=== PATIENT | male | born 1945 | race Caucasian/White ===

== ENCOUNTER → 2016-10-11 | Outpatient (CLI) | payer MEDICARE ==
--- NOTE | 2016-10-11 15:07 | US ---
EXAMINATION TYPE: US venous doppler duplex LE BI DATE OF EXAM: 10/11/2016 2:22 PM COMPARISON: NONE CLINICAL HISTORY: M79.662 Pain in Lft Limb,R22.42,M79.661 Pain Rt Limb,R22.41. SIDE PERFORMED: VESSELS IMAGED: External Iliac Vein (EIV) Common Femoral Vein Deep Femoral Vein Greater Saphenous Vein * Femoral Vein Popliteal Vein Small Saphenous Vein * Proximal Calf Veins (* superficial vessels) TECHNOLOGIST IMPRESSION: wnl Right Leg: Negative for DVT Left Leg: Negative for DVT IMPRESSION: No evidence of DVT at this time.
--- NOTE | 2016-10-11 15:12 | US ---
EXAMINATION TYPE: US abdomen comp/pelvis limited DATE OF EXAM: 10/11/2016 2:44 PM COMPARISON: NONE CLINICAL HISTORY: R10 Abdominal Pain. chest pain EXAM MEASUREMENTS: Liver Length: 17.1 cm Gallbladder Wall: 0.3 cm CBD: 0.4 cm Spleen: 10.3 cm Right Kidney: 10.8 x 5.5 x 6.1 cm Left Kidney: 11.4 x 6.1 x 6.4 cm Pancreas: not seen due to midline bowel gas Liver: wnl Gallbladder: No stones seen CBD: wnl Spleen: wnl Right Kidney: cyst measuring 2.1 x 1.6 x 2.1 cm Left Kidney: multiple cysts, largest measuring 4.2 x 4.3 x 4.1 cm Upper IVC: wnl Abd Aorta: wnl Bladder: wnl IMPRESSION: 1. Bilateral simple appearing renal cysts.
--- NOTE | 2016-10-12 10:30 | ECHOF ---
Referral Reason:R079 chest pain MEASUREMENTS -------- HEIGHT: 162.6 cm WEIGHT: 107.1 kg BP: RVIDd: 3.1 cm (< 3.3) IVSd: 1.4 cm (0.6 - 1.1) LVIDd: 4.6 cm (3.9 - 5.3) LVPWd: 1.3 cm (0.6 - 1.1) IVSs: 1.8 cm LVIDs: 3.0 cm LVPWs: 1.7 cm LA Diam: 4.5 cm (2.7 - 3.8) LAESV Index (A-L): 46.31 ml/m Ao Diam: 3.4 cm (2.0 - 3.7) AV Cusp: 1.5 cm (1.5 - 2.6) LA Diam: 4.3 cm (2.7 - 3.8) MV EXCURSION: 19.848 mm (> 18.000) MV EF SLOPE: 73 mm/s (70 - 150) EPSS: 0.4 cm MV E Inder: 0.44 m/s MV DecT: 201 ms MV A Inder: 0.72 m/s MV E/A Ratio: 0.62 RAP: 5.00 mmHg RVSP: 29.38 mmHg FINDINGS -------- Sinus rhythm. This was a technically good study. There is moderate concentric left ventricular hypertrophy. Overall left ventricular systolic function is normal with, an EF between 55 - 60 %. The right ventricle is normal in size. LA is severely dilated >40 ml/m2 The right atrial size is normal. There is mild aortic valve sclerosis. There is no evidence of aortic regurgitation. Mild mitral annular calcification present. Mild mitral regurgitation is present. No regurgitation noted There is mild pulmonary hypertension. The right ventricular systolic pressure, as measured by Doppler, is 29.38mmHg. There is no pulmonic regurgitation present. CONCLUSIONS -------- 1. There is moderate concentric left ventricular hypertrophy. 2. Overall left ventricular systolic function is normal with, an EF between 55 - 60 %. 3. LA is severely dilated >40 ml/m2 4. There is mild aortic valve sclerosis. 5. Mild mitral annular calcification present. 6. Mild mitral regurgitation is present. 7. No regurgitation noted 8. There is mild pulmonary hypertension. 9. The right ventricular systolic pressure, as measured by Doppler, is 29.38mmHg. STANDPIPE TENDER: Marianne Rea RDCS
== END | disposition home or self-care (01) ==
LOC: RADUSWWP 13:25
PROVIDERS: ATTEND Family Medicine
DX: M79.661 Pain in right lower leg (principal); M79.662 Pain in left lower leg; R22.42 Localized swelling, mass and lump, left lower limb; R22.41 Localized swelling, mass and lump, right lower limb; N28.1 Cyst of kidney, acquired
CPT/HCPCS: 76700; 76857; 93306; 93970

== ENCOUNTER → 2017-10-20 | Outpatient (CLI) | payer MEDICARE ==
[2017-10-20 14:16] LABS: Basophils % (A) 1 %; Eosinophils % (A) 1 %; HCT 44.7 % (39.0-53.0); HGB 14.3 gm/dL (13.0-17.5); Lymphocytes # (A) 1.2 k/uL (1.0-4.8); Lymphocytes % (A) 23 %; MCH 28.1 pg (25.0-35.0); MCHC 31.9 g/dL (31.0-37.0); MCV 88.1 fL (80.0-100.0); Mean Platelet Volume 7.6; Monocytes # (A) 0.4 k/uL (0-1.0); Monocytes % (A) 7 %; Neutrophils # (A) 3.6 k/uL (1.3-7.7); Neutrophils % (A) 68 %; Platelet Count 188 k/uL (150-450); RBC 5.08 m/uL (4.30-5.90); RDW 13.5 % (11.5-15.5); WBC 5.3 k/uL (3.8-10.6)
[2017-10-20 14:28] LABS: Calcium 9.8 mg/dL (8.4-10.2); Potassium 3.4 mmol/L (3.5-5.1)
== END | disposition home or self-care (01) ==
LOC: LABPAT 13:29
PROVIDERS: ATTEND Urology
DX: Z01.812 Encounter for preprocedural laboratory examination (principal); C61 Malignant neoplasm of prostate; R53.83 Other fatigue; R31.29 Other microscopic hematuria; Z79.899 Other long term (current) drug therapy
CPT/HCPCS: 36415; 80048; 85025; 87086

== ENCOUNTER 2017-10-27 05:43 | Inpatient (IN) | payer MEDICARE ==
[2017-10-24 09:28] VITALS: BMI 32.9
[~2017-10-27 05:43] MED LIST: HEPARIN SODIUM,PORCINE 5,000 UNIT/ML 1 ML VIAL SQ ONE; Pre Op ABX Message 1 EACH MISC MISCELLANE ONE
[2017-10-27] MEDS ORDERED: DEXAMETHASONE SOD PHOSPHATE 10 MG/ML 1 ML VIAL IV ONE (05:53)
[2017-10-27] MEDS ORDERED: MORPHINE SULFATE 4 MG/ML SYRINGE IV PRN (05:53)
[2017-10-27] MEDS ORDERED: MIDAZOLAM 2 MG/2 ML VIAL IV PRN (05:53)
[2017-10-27] MEDS ORDERED: ONDANSETRON 4 MG/2 ML VIAL IVP ONE (05:53)
[2017-10-27] MEDS ORDERED: LIDOCAINE 1% 20 ML VIAL (10MG/ML) FOR IV START INTRADERMA ONE (07:00)
[2017-10-27] MEDS: LACTATED RINGERS 1,000 ML IV SCH (07:00)
[2017-10-27 07:21] LABS: Albumin 4.1 g/dL (3.5-5.0); Calcium 9.6 mg/dL (8.4-10.2); Potassium 3.2 mmol/L (3.5-5.1); Total Bilirubin 0.6 mg/dL (0.2-1.3); Total Protein 6.9 g/dL (6.3-8.2)
[2017-10-27] MEDS ORDERED: LEVOFLOXACIN 500MG-D5W PMX 500 MG in DEXTROSE/WATER 1 100ML.BAG IVPB STA (07:28)
[2017-10-27] MEDS ORDERED: ePHEDrine SULFATE/0.9% NACL/PF 50 MG/5 ML SYRINGE IV ONE (07:30)
[2017-10-27] MEDS ORDERED: LIDOCAINE 1% INJ 10MG/ML (20 ML MDV) ONE (07:30)
[2017-10-27] MEDS ORDERED: MIDAZOLAM 2 MG/2 ML VIAL ONE (07:30)
[2017-10-27] MEDS ORDERED: PROPOFOL 10 MG/ML 20 ML VIAL IV ONE (07:30)
[2017-10-27] MEDS ORDERED: NEOSTIGMINE 1 MG/ML 10 ML VIAL ONE (07:30)
[2017-10-27] MEDS ORDERED: ROCURONIUM BROMIDE 10 MG/ML 10 ML VIAL IV ONE (07:30)
[2017-10-27] MEDS ORDERED: GLYCOPYRROLATE 0.2 MG/ML 2 ML VIAL ONE (07:30)
[2017-10-27] MEDS ORDERED: fentaNYL (PF) 50 MCG/ML 2 ML AMP ONE (07:30)
[2017-10-27] MEDS ORDERED: SUCCINYLCHOLINE CHLORIDE 100 MG/5 ML SYR IV ONE (07:30)
[2017-10-27] MEDS ORDERED: BUPIVACAINE (PF) 0.25% 30 ML VIAL SQ ONE (07:57)
[2017-10-27] MEDS ORDERED: LACTATED RINGERS 1,000 ML IV ONE (10:25)
[2017-10-27] MEDS ORDERED: metroNIDAZOLE-NS PMX 500 MG in SALINE 1 100ML.BAG IVPB STA (11:11)
--- NOTE | 2017-10-27 15:12 | P.PCN ---
Date of Procedure: 10/27/17 Procedure(s) Performed: An intraoperative consultation was requested by Dr. Ramirez after he identified a small defect in the anterior wall the rectum at the level of the prostate. This defect measured approximately 7-8 mm in size. There was no evidence of spillage. The patient did not have a bowel prep. Dr. Ramirez had a discussion with one of his associates and it was advised that primary closure take place robotically. This was repaired by Dr. Ramirez using a running 3-0 Vicryl suture and additional seromuscular sutures placed anteriorly as well. At that time a flexible colonoscope was placed into the anus and advanced to the proximal rectum. There was no blood within the lumen of the rectum. There was minimal liquid stool identified and aspirated. We were able to identify the approximate location of the colotomy that I could not visualize any obvious injury. The colon was insufflated with air while there was saline in the pelvis and there was no evidence of leakage of air despite seeing the rectum fill nicely. Urology proceeded with reanastomosis of the urethra at that point. We'll maintain liquid diet for the first 24-48 hours postoperatively. Low fiber diet following that. We'll follow.
[2017-10-27] MEDS ORDERED: ACETAMINOPHEN TAB 325 MG TAB PO PRN (16:48)
[2017-10-27] MEDS: metroNIDAZOLE-NS PMX 500 MG in SALINE 1 100ML.BAG IVPB SCH (18:16)
[2017-10-27] MEDS: MORPHINE SULFATE 4 MG/ML SYRINGE IVP PRN (18:24)
[2017-10-27] MEDS: METOLAZONE 5 MG TAB PO SCH (18:28)
[2017-10-27] MEDS: ATORVASTATIN 40 MG TAB PO SCH (20:49)
[2017-10-27] MEDS: HEPARIN SODIUM,PORCINE 5,000 UNIT/ML 1 ML VIAL SQ SCH (20:49)
[2017-10-27] MEDS: DORZOLAMIDE HCL 2% DROPS 10 ML BTL BOTH EYES SCH (20:49)
[2017-10-27] MEDS: METOPROLOL TARTRATE 50 MG TAB PO SCH (20:50)
[2017-10-27] MEDS: hydrALAZINE HCL 50 MG TAB PO SCH (20:50)
[2017-10-27] MEDS: LATANOPROST 0.005% OPHTH DROPS 2.5 ML BTL BOTH EYES SCH (20:50)
[2017-10-28] MEDS: MORPHINE SULFATE 4 MG/ML SYRINGE IVP PRN ×2 (01:38→05:40)
[2017-10-28] MEDS: metroNIDAZOLE-NS PMX 500 MG in SALINE 1 100ML.BAG IVPB SCH ×5 (01:39→23:58)
[2017-10-28] MEDS: DEXTROSE 5%-0.45% NACL 1,000 ML IV SCH ×4 (01:44→11:45)
[2017-10-28] MEDS: LEVOFLOXACIN 500MG-D5W PMX 500 MG in DEXTROSE/WATER 1 100ML.BAG IVPB SCH (07:20)
[2017-10-28] MEDS: HEPARIN SODIUM,PORCINE 5,000 UNIT/ML 1 ML VIAL SQ SCH ×2 (08:56→23:55)
[2017-10-28] MEDS: METOLAZONE 5 MG TAB PO SCH ×2 (08:56→17:17)
[2017-10-28] MEDS: DORZOLAMIDE HCL 2% DROPS 10 ML BTL BOTH EYES SCH ×2 (08:56→23:58)
[2017-10-28 09:17] LABS: Calcium 8.3 mg/dL (8.4-10.2); Potassium 3.2 mmol/L (3.5-5.1)
--- NOTE | 2017-10-28 09:50 | P.PN ---
Progress Note - Text Progress Note Date: 10/28/17 The patient is afebrile and relatively comfortable. He denies any shortness of breath. He does have some urinary urgency which is expected due to his urethral catheter. Urine draining from his catheter is clear. Serosanguineous fluid is draining from the Gerardo-Love drain. Potassium is 3.2. Abdomen: Incisions appear to be uninflamed. The abdomen is soft and is not distended. Impression: Good recovery so far fololowing RALP with inadvertent rectal injury which was noted and repaired intraoperatively. Recommendation: The patient's potassium will be replaced. He will continue on a liquid diet and will be started on stool softeners.
[2017-10-28] MEDS ORDERED: BISACODYL 5 MG TABLET.DR PO SCH (10:00)
[2017-10-28] MEDS: KETOROLAC 30 MG/ML 1 ML VIAL IVP PRN (11:47)
[2017-10-28] MEDS: POTASSIUM CHLORIDE ER 20 MEQ TAB.ER PO SCH ×2 (11:48→23:58)
[2017-10-28] MEDS: DOCUSATE 100 MG CAP PO SCH ×2 (11:48→23:58)
--- NOTE | 2017-10-28 12:28 | P.PN ---
Subjective Progress Note Date: 10/28/17 Patient is postop day #1 from a RALP. At this time he is doing well with minimal abdominal discomfort. He has not yet passed flatus. Objective - Vital Signs Vital signs: Vital Signs Temp 97.6 F 10/28/17 07:00 Pulse 65 10/28/17 07:00 Resp 18 10/28/17 07:00 BP 108/54 10/28/17 07:00 Pulse Ox 95 10/28/17 07:00 Intake & Output 10/27/17 10/28/17 10/28/17 18:59 06:59 18:59 Intake Total 2350 2400 Output Total 850 1000 Balance 1500 1400 Weight 107.048 kg Intake: IV 2350 Intake, IV Titration 2300 Amount Dextrose 5%-0.45% NaCl 1, 2000 000 ml @ 125 mls/hr IV . Q8H [facility] Rx#:[id number] metroNIDAZOLE-NS PMX 500 300 mg In Saline 1 100ml.bag @ 100 mls/hr IVPB Q6HR [facility] Rx#:[id number] Oral 0 100 Output: Drainage 100 Left Abdomen 100 Urine 650 900 Uretheral (Zapata) 150 900 Estimated Blood Loss 200 Other: Voiding Method Indwelling Catheter Indwelling Catheter Indwelling Catheter - Constitutional General appearance: Present: obese - Respiratory Details: Decreased breath sounds at the bases - Cardiovascular Rhythm: regular Heart sounds: normal: S1, S2 - Integumentary Integumentary Comment(s): Incisions clean and dry Abdomen soft - Psychiatric Psychiatric: Present: A&O x's 3, appropriate affect, intact judgment & insight - Labs CBC & Chem 7: 10/28/17 08:46 Labs: Abnormal Lab Results - Last 24 Hours (Table) 10/28/17 Range/Units 08:46 Potassium 3.2 L (3.5-5.1) mmol/L BUN 24 H (9-20) mg/dL Creatinine 1.60 H (0.66-1.25) mg/dL Glucose 138 H (74-99) mg/dL Calcium 8.3 L (8.4-10.2) mg/dL Assessment and Plan Assessment: Postop day #1 RALP 2. Continue present therapy
--- NOTE | 2017-10-28 13:01 | PN ---
PROGRESS NOTE DATE OF SERVICE: 10/28/2017. CHIEF COMPLAINT: Status post prostatectomy. HISTORY OF PRESENT ILLNESS: This gentleman is fairly comfortable. He has had no nausea or vomiting. He has had no chills, fever, shortness of breath. PHYSICAL EXAM: CHEST: Clear. Cardiac exam is normal. Bowel sounds are heard. IMPRESSION: 1. Status post prostatectomy. 2. Hypertension. PLAN: Possibly home today. MMODL / IJN: [id number] /
--- NOTE | 2017-10-28 13:40 | CONS ---
CONSULTATION CHIEF COMPLAINT: Carcinoma of the prostate. HISTORY OF PRESENT ILLNESS: This is the first known [facility] admission for this 71-year-old - [place] male. He has a history of hypertension and hyperlipidemia and has been found to have carcinoma of the prostate and is brought in for an elective RALP. REVIEW OF SYSTEMS: He denies any recent headaches, neurologic problems, confusion, change in his vision or his hearing, chest pain, shortness of breath, hemoptysis, chest pain, orthopnea, PND, heart disease, murmurs, rheumatic fever, abdominal pain, nausea, vomiting, hematemesis, melena, hematochezia, renal disease, renal failure, dysuria, hematuria, etc. 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 3. PENICILLIN. CURRENT MEDICATIONS: 1. Metolazone 10 mg once a day. 2. Atorvastatin 40 mg at bedtime. 3. Toprol 100 mg once a day. 4. Hydralazine 100 mg once a day. 5. Vitamin D3. 6. Aspirin 81 mg. He used to smoke but does not any longer. He does overindulge in alcohol. PHYSICAL EXAMINATION: Blood pressure is 145/90 with a pulse of 94, respirations 16. He is afebrile. In general he appeared to be slightly overweight, in no acute distress. Skin color is normal. Skin is warm and dry. Lymph nodes not enlarged. Head, ears, eyes, nose, mouth and throat were normal. Neck veins were not distended. The chest is clear. Cardiac exam is normal. The abdomen is slightly protuberant, nontender. There are no masses or visceromegaly. Extremities are normal. Neurologically he is intact. IMPRESSION: 1. Carcinoma of the prostate. 2. Hypertension. 3. Alcohol abuse. PLAN: No change in program. Proceed with surgical intervention. MMODL / IJN: [id number] /
[2017-10-28] MEDS: hydrALAZINE HCL 50 MG TAB PO SCH (23:57)
[2017-10-28] MEDS: ATORVASTATIN 40 MG TAB PO SCH (23:58)
[2017-10-28] MEDS: METOPROLOL TARTRATE 50 MG TAB PO SCH (23:58)
[2017-10-28] MEDS: LATANOPROST 0.005% OPHTH DROPS 2.5 ML BTL BOTH EYES SCH (23:59)
[2017-10-29] MEDS: KETOROLAC 30 MG/ML 1 ML VIAL IVP PRN ×2 (00:09→07:19)
[2017-10-29] MEDS: DEXTROSE 5%-0.45% NACL 1,000 ML IV SCH ×3 (00:17→21:27)
[2017-10-29] MEDS: metroNIDAZOLE-NS PMX 500 MG in SALINE 1 100ML.BAG IVPB SCH ×3 (05:06→17:57)
[2017-10-29] MEDS: ONDANSETRON 4 MG/2 ML VIAL IVP PRN ×2 (07:18→21:24)
[2017-10-29] MEDS: LACTATED RINGERS 1,000 ML IV SCH (07:52)
[2017-10-29 08:14] LABS: Potassium 3.2 mmol/L (3.5-5.1)
[2017-10-29] MEDS: DORZOLAMIDE HCL 2% DROPS 10 ML BTL BOTH EYES SCH ×2 (09:00→21:24)
[2017-10-29] MEDS: HEPARIN SODIUM,PORCINE 5,000 UNIT/ML 1 ML VIAL SQ SCH ×2 (09:06→21:24)
[2017-10-29] MEDS: POTASSIUM CHLORIDE ER 20 MEQ TAB.ER PO SCH ×2 (09:06→21:32)
[2017-10-29] MEDS: METOLAZONE 5 MG TAB PO SCH ×2 (09:06→17:57)
[2017-10-29] MEDS: LEVOFLOXACIN 500MG-D5W PMX 500 MG in DEXTROSE/WATER 1 100ML.BAG IVPB SCH (09:06)
[2017-10-29] MEDS ORDERED: HYDROcodone/APAP 5-325MG 1 EACH TAB PO PRN ×2 (10:49)
--- NOTE | 2017-10-29 11:14 | P.PN ---
Subjective Progress Note Date: 10/29/17 Principal diagnosis: POD #2, s/p RALP with closure of rectal laceration. Mr. Dominguez states that he is feeling better today. He ambulated in the morales. He is passing flatus. He is tolerating clear liquids, though he had an episode of emesis. He reports mild incisional discomfort. Objective - Vital Signs Vital signs: Vital Signs Temp 98.1 F 10/29/17 07:00 Pulse 68 10/29/17 07:00 Resp 20 10/29/17 07:00 BP 163/72 10/29/17 07:00 Pulse Ox 98 10/29/17 07:00 Intake & Output 10/28/17 10/29/17 10/29/17 17:59 06:59 18:59 Intake Total 237 Output Total Balance 237 Intake: Intake, IV Titration Amount Dextrose 5%-0.45% NaCl 1, 000 ml @ 125 mls/hr IV . Q8H [facility] Rx#:[id number] Levofloxacin 500Mg-D5w Pmx 500 mg In Dextrose/ Water 1 100ml.bag @ 100 mls/hr IVPB Q24H [facility] Rx#: [id number] metroNIDAZOLE-NS PMX 500 mg In Saline 1 100ml.bag @ 100 mls/hr IVPB Q6HR [facility] Rx#:[id number] Oral 237 Output: Drainage Left Abdomen Urine Other: Voiding Method Indwelling Catheter # Voids - Constitutional General appearance: Present: cooperative, no acute distress - Gastrointestinal Gastrointestinal Comment(s): Soft, non-distended. Incisions clean and dry. - Psychiatric Psychiatric: Present: A&O x's 3, appropriate affect - Labs CBC & Chem 7: 10/29/17 06:25 Labs: Abnormal Lab Results - Last 24 Hours (Table) 10/29/17 Range/Units 06:25 Potassium 3.2 L (3.5-5.1) mmol/L Creatinine 1.59 H (0.66-1.25) mg/dL Glucose 114 H (74-99) mg/dL Calcium 8.0 L (8.4-10.2) mg/dL Assessment and Plan (1) Adenocarcinoma of prostate Current Visit: Yes Status: Acute Code(s): C61 - MALIGNANT NEOPLASM OF PROSTATE SNOMED Code(s): 834519774 Plan: Mr. Dominguez's condition is stable. The Zapata catheter is draining well. The Gerardo-Love drainage is serosanguineous in appearance. He will continue to receive a clear liquid diet. He will undergo potassium replacement, and ambulation was encouraged.
[2017-10-29] MEDS ORDERED: POTASSIUM CHLORIDE 20 MEQ in WATER FOR INJECTION 1 100ML.BAG IVPB SCH (11:15)
--- NOTE | 2017-10-29 11:18 | P.OP ---
Date of Procedure: 10/27/17 Preoperative Diagnosis: Adenocarcinoma of the Prostate, Clinical Stage [id number] Postoperative Diagnosis: Same Procedure(s) Performed: Robotic-Assisted Laparoscopic Prostatectomy (RALP), Bilateral Pelvic Lymphadenectomy, Primary Closure of Rectal Laceration Anesthesia: SILVINO Surgeon: Nando Ramirez Estimated Blood Loss (ml): 200 IV fluids (ml): 2,000 Urine output (ml): 300 Pathology: other (prostate, seminal vesicles, pelvic lymph nodes) Condition: stable Disposition: PACU Indications for Procedure: The patient is a 71-year-old male with recently diagnosed prostate cancer. 4 of 6 left-sided biopsies showed [place] 7 adenocarcinoma. The right-sided biopsies were negative. I had a lengthy discussion with the patient and his regarding his prostate cancer. He has elected to undergo an RALP with bilateral pelvic lymphadenectomy. Operative Findings: No evidence of extraprostatic disease. Vesical neck dissection extended intraprostatic, resuling in an anterior rectal wall laceration which was identified and repaired primarily. Description of Procedure: The patient was taken in the operating room and placed in the dorsal lithotomy position, with his legs supported in Manuel stirrups. He was carefully positioned on a beanbag for stability. The abdomen and external genitalia were prepped and draped sterilely. A Zapata catheter was inserted. The Veress needle was passed through the anterior abdominal wall immediately cephalad to the umbilicus, and insufflation was performed to a pressure of 20 mm Hg. Once insufflation was performed, the Veress needle was removed and a supraumbilical incision was made, through which an 8 mm camera port was placed. Under camera guidance, 3 8 mm robotic ports were placed, 2 on the left and one on the right. An additional 12 mm port was placed on the right lateral side for use as an operator/assistant foreman port. A 5 mm port was placed to the right of the camera port for suction. The patient was placed in Trendelenburg position, and docking was then performed to the da Mau system utilizing a 4-arm approach. The abdomen was examined. The sigmoid colon was mobilized out of the pelvis. The peritoneum was incised lateral to the medial umbilical ligaments bilaterally , exposing the pubis. The peritoneum was then incised across the midline, allowing the bladder flap to be taken down. The endopelvic fascia was opened bilaterally, and muscular attachments from the urogenital diaphragm were swept away from the prostate. Bilateral pelvic lymphadenectomies were performed in the standard fashion. The peritoneal incisions were extended in a cephalad direction, and the vas deferens were divided bilaterally. Margins of dissection were the bifurcation of the iliac vessels proximally, the circumflex iliac vein distally, the external iliac artery laterally, and the obturator nerve medially. A combination of sharp and blunt dissection was used. Care was taken to avoid any neurovascular injury, and the use of monopolar electrocautery was avoided immediately adjacent to neurovascular structures. The lymphatic package was clipped distally. No enlarged lymph nodes were encountered. There were no complications. The vesical neck was incised transversely, down to the lumen. The Zapata catheter was brought out through the anterior vesical neck incision and was used for traction. The posterior aspect of the vesical neck was incised, and the dissection continued toward the anterior layer of the Denonvilliers fascia. However, the plane was difficult to deliniate and it was then determined that the dissection was intraprostatic. The vesical neck was examined. Prostatic tissue was dissected off of the vesical neck. The bladder was inspected through the vesical neck and the ureteral orifices were identified well away from the vesical neck. The correct plane of dissection was developed to separate the prostate from the vesical neck, and ultimately the anterior layer of Denonvilliers fasic was identified and incised, exposing the vas deferens. Each were isolated and divided. Next, each of the seminal vesicles were dissected away from adjacent tissues, and vascular attachments were cauterized and divided. It was at this time that a small (7-8 mm) laceration was noted on the anterior rectal wall. There was no spillage of stool whatsoever. The posterior leaf of Denonvilliers fascia was incised transversely, allowing entry into the plane between the prostate and rectum. With lateral spreading, this plane was developed down to the apex. This exposed the lateral vascular pedicles bilaterally. These were clipped and divided in an antegrade fashion, down to the apex. The use of electrocautery was avoided to prevent thermal damage to the nerves. Because of the intraprostatic dissection, the prostate was actually removed in 2 halves. Nonetheless, the vascular pedicles were well defined and there was no concern of being intraprostatic at this time. On the right side, the plane of dissection was closer to the prostate to preserve the neurovascular bundle. The remaining apical attachments were swept away from the prostate. The dorsal venous complex was incised, as well as periurethral tissue. At this point, only the urethra remained intact. This was transected immediately distal to the prostatic apex using cold scissors. A small amount of rectourethralis muscle was divided, and the specimen was placed within a specimen bag along with the pelvic lymph nodes. The dorsal venous complex was sutured using a V-Loc suture in a running fashion. The pelvis was irrigated copiously, and attention was then paid to the rectal injury. Dr. Oliveros was consulted intraoperatively. The rectal laceration was closed using 3-0 Vicryl suture in a running full-thickness fashion. The rectal wall was thin, and a second (seromuscular) layer closure was performed, again using 3-0 Vicryl suture in a running fashion, to reinforce the closure. The tissue was not very pliable, and the left vas deferens was sewn over the repair as an additional layer for reinforcement. Dr. Oliveros then performed signoidoscopy. The injury was not seen endoscopically. The rectum was filled with air, and the pelvis was filled with normal saline. No air leak was identified. The bladder neck did not easily go down to the urethra. Some of the posterior bladder attachments were taken down to mobilize the bladder. A second V-Loc suture was then used to place the Prince stitch, incorporating the rhabdosphincter and the edge of Denonvilliers fascia. This allowed the bladder to be taken down to the urethra, leaving the vesical neck immediately adjacent to the urethra. This also placed the base of the bladder over the rectal repair, which was well away from the vesicourethral anastomosis. The caliber of the vesical neck was larger than desired, and 3-0 Vicryl suture was used to close the right lateral bladder neck, leaving the vesical neck the desired caliber. The vesicourethral anastomosis was then performed using a V- Loc suture in a running fashion. A tension-free anastomosis was attained. After completing the anastomosis, an 18-Malay Zapata catheter was placed and approximately 200 mL of 0.9 normal saline were instilled into the bladder. No extravasation of irrigant from the vesicourethral anastomosis was noted. Hemostasis was noted at this time to be very good. A REAGAN drain was left in the pelvis, and it was brought out through the LLQ port. The drain was later sutured to the skin using Nylon suture and attached to bulb suction. The patient was returned to the supine position. Undocking was performed, and the specimen bag sutures were passed through the camera port. After removing all the ports and allowing all of the CO2 to be released from the peritoneal cavity, the camera port incision was enlarged to allow removal of the surgical specimen. The fascia of this incision was then closed using 0 Vicryl suture in an interrupted [id number] fashion. Each of the skin incisions were then closed using 4-0 Vicryl suture in a subcuticular fashion. Marcaine was injected at each of the incision sites. Dermabond was applied to each incision. The Zapata catheter was connected to gravity drainage. All sponge and needle counts were correct. The patient tolerated the procedure well was taken to the recovery room in stable condition.
[2017-10-29] MEDS: POTASSIUM CHLORIDE 20 MEQ in SODIUM CHLORIDE 0.9% 100 ML IVPB SCH ×2 (12:16→21:24)
[2017-10-29] MEDS: DOCUSATE 100 MG CAP PO SCH ×2 (12:31→21:32)
--- NOTE | 2017-10-29 12:54 | P.PN ---
Subjective Patient is postop day #2 from a RALP. At this time he is doing well with minimal abdominal discomfort. He has passed flatus. Objective - Vital Signs Vital signs: Vital Signs Temp 98.1 F 10/29/17 07:00 Pulse 68 10/29/17 07:00 Resp 20 10/29/17 07:00 BP 163/72 10/29/17 07:00 Pulse Ox 98 10/29/17 07:00 Intake & Output 10/28/17 10/29/17 10/29/17 17:59 06:59 18:59 Intake Total 237 Output Total Balance 237 Intake: Intake, IV Titration Amount Dextrose 5%-0.45% NaCl 1, 000 ml @ 125 mls/hr IV . Q8H [facility] Rx#:[id number] Levofloxacin 500Mg-D5w Pmx 500 mg In Dextrose/ Water 1 100ml.bag @ 100 mls/hr IVPB Q24H [facility] Rx#: [id number] metroNIDAZOLE-NS PMX 500 mg In Saline 1 100ml.bag @ 100 mls/hr IVPB Q6HR [facility] Rx#:[id number] Oral 237 Output: Drainage Left Abdomen Urine Other: Voiding Method Indwelling Catheter # Voids - Constitutional General appearance: Present: obese - Respiratory Respiratory: bilateral: CTA - Cardiovascular Rhythm: regular Heart sounds: normal: S1, S2 - Gastrointestinal Gastrointestinal Comment(s): Incisions clean and dry General gastrointestinal: Present: normal bowel sounds, soft - Psychiatric Psychiatric: Present: A&O x's 3, appropriate affect, intact judgment & insight - Labs CBC & Chem 7: 10/29/17 06:25 Labs: Abnormal Lab Results - Last 24 Hours (Table) 10/29/17 Range/Units 06:25 Potassium 3.2 L (3.5-5.1) mmol/L Creatinine 1.59 H (0.66-1.25) mg/dL Glucose 114 H (74-99) mg/dL Calcium 8.0 L (8.4-10.2) mg/dL Assessment and Plan Assessment: Impression/plan: 1. Patient status post RALP postop day #2 2. Zapata catheter draining well 3. Potassium replacement for potassium of 3.2 4. Advance diet as per urology
[2017-10-29] MEDS: LATANOPROST 0.005% OPHTH DROPS 2.5 ML BTL BOTH EYES SCH (21:24)
[2017-10-29] MEDS: hydrALAZINE HCL 50 MG TAB PO SCH (21:32)
[2017-10-29] MEDS: ATORVASTATIN 40 MG TAB PO SCH (21:32)
[2017-10-29] MEDS: METOPROLOL TARTRATE 50 MG TAB PO SCH (21:32)
[2017-10-30] MEDS: POTASSIUM CHLORIDE 20 MEQ in SODIUM CHLORIDE 0.9% 100 ML IVPB SCH (00:37)
[2017-10-30] MEDS: KETOROLAC 30 MG/ML 1 ML VIAL IVP PRN (00:37)
[2017-10-30] MEDS: metroNIDAZOLE-NS PMX 500 MG in SALINE 1 100ML.BAG IVPB SCH ×4 (06:07→22:58)
[2017-10-30] MEDS: DEXTROSE 5%-0.45% NACL 1,000 ML IV SCH ×3 (06:08→22:57)
[2017-10-30] MEDS: LACTATED RINGERS 1,000 ML IV SCH (06:09)
[2017-10-30 07:43] LABS: Calcium 7.5 mg/dL (8.4-10.2); Potassium 3.4 mmol/L (3.5-5.1)
[2017-10-30] MEDS: POTASSIUM CHLORIDE ER 20 MEQ TAB.ER PO SCH ×2 (09:09→21:22)
[2017-10-30] MEDS: LEVOFLOXACIN 500MG-D5W PMX 500 MG in DEXTROSE/WATER 1 100ML.BAG IVPB SCH (09:09)
[2017-10-30] MEDS: METOLAZONE 5 MG TAB PO SCH ×2 (09:10→21:22)
[2017-10-30] MEDS: DOCUSATE 100 MG CAP PO SCH ×2 (09:10→21:22)
[2017-10-30] MEDS: HEPARIN SODIUM,PORCINE 5,000 UNIT/ML 1 ML VIAL SQ SCH ×2 (09:10→21:21)
[2017-10-30] MEDS: DORZOLAMIDE HCL 2% DROPS 10 ML BTL BOTH EYES SCH ×2 (09:11→22:57)
--- NOTE | 2017-10-30 11:05 | P.PN ---
<Paula Curriematt Hardy - Last Filed: 10/30/17 10:55> Subjective Progress Note Date: 10/30/17 71-year-old seen and examined. Patient states pain medication effective for pain control having mild abdominal discomfort. Passing gas. No stool. REAGAN drain in the left lower quadrant serosanguineous drainage. No nausea vomiting. States has been up ambulating in the morales. Indwelling Zapata catheter in place with colored urine noted. Patient states belching Patient is postop day 3 RALP Objective - Vital Signs Vital signs: Vital Signs Temp 98.5 F 10/30/17 07:00 Pulse 62 10/30/17 07:00 Resp 16 10/30/17 07:00 BP 141/73 10/30/17 07:00 Pulse Ox 97 10/30/17 07:00 Intake & Output 10/29/17 10/30/17 10/30/17 18:59 06:59 18:59 Intake Total 1487 755 Output Total 960 Balance 1487 -205 Weight 107.048 kg Intake: IV 1000 Dextrose 5%-0.45% NaCl 1, 1000 000 ml @ 125 mls/hr IV . Q8H [facility] Rx#:[id number] Intake, IV Titration 250 515 Amount Dextrose 5%-0.45% NaCl 1, 100 250 000 ml @ 125 mls/hr IV . Q8H [facility] Rx#:[id number] Potassium Chloride 20 meq 165 In Sodium Chloride 0.9% 100 ml @ 55 mls/hr IVPB Q2H [facility] Rx#:[id number] Potassium Chloride 20 meq 50 In Water For Injection 1 100ml.bag @ 50 mls/hr IVPB Q2H [facility] Rx#: [id number] metroNIDAZOLE-NS PMX 500 100 100 mg In Saline 1 100ml.bag @ 100 mls/hr IVPB Q6HR [facility] Rx#:[id number] Oral 237 240 Output: Drainage 230 Left Abdomen 230 Urine 680 Emesis 50 Other: Voiding Method Indwelling Catheter Indwelling Catheter Indwelling Catheter # Voids 1 - Exam Physical exam Abdomen surgical dressing sites dry. Left lower quadrant REAGAN drain in place serous sinus drainage. Passing gas and belching no bowel movement indwelling Zapata catheter in place rust colored urine noted states pain medication effective for pain control surgical tenderness appropriate slightly distended with hypoactive bowel tones noted - Labs CBC & Chem 7: 10/30/17 06:23 Labs: Abnormal Lab Results - Last 24 Hours (Table) 10/30/17 Range/Units 06:23 Potassium 3.4 L (3.5-5.1) mmol/L Creatinine 1.46 H (0.66-1.25) mg/dL Glucose 110 H (74-99) mg/dL Calcium 7.5 L (8.4-10.2) mg/dL Assessment and Plan Assessment: Impression Adenocarcinoma of prostate newly diagnosed Hypokalemia Robotic-Assisted Laparoscopic Prostatectomy (RALP), Bilateral Pelvic Lymphadenectomy, Primary Closure of Rectal Laceration done on October 27 Plan Continue postop surgical care Potassium to be replaced DVT and GI prophylaxis Increase activity Pain control The above impression and plan of care have been discussed and directed by signing physician. Ana Maria Currie nurse practitioner acting as scribe for signing physician. <Joseph Oliveros - Last Filed: 10/30/17 15:38> Objective - Vital Signs Vital signs: Vital Signs Temp 98.4 F 10/30/17 14:56 Pulse 67 10/30/17 14:56 Resp 16 10/30/17 14:56 BP 141/77 10/30/17 14:56 Pulse Ox 98 10/30/17 14:56 Intake & Output 10/29/17 10/30/17 10/30/17 18:59 06:59 18:59 Intake Total 1487 755 Output Total 960 Balance 1487 -205 Weight 107.048 kg Intake: IV 1000 Dextrose 5%-0.45% NaCl 1, 1000 000 ml @ 125 mls/hr IV . Q8H [facility] Rx#:[id number] Intake, IV Titration 250 515 Amount Dextrose 5%-0.45% NaCl 1, 100 250 000 ml @ 125 mls/hr IV . Q8H [facility] Rx#:[id number] Potassium Chloride 20 meq 165 In Sodium Chloride 0.9% 100 ml @ 55 mls/hr IVPB Q2H [facility] Rx#:[id number] Potassium Chloride 20 meq 50 In Water For Injection 1 100ml.bag @ 50 mls/hr IVPB Q2H [facility] Rx#: [id number] metroNIDAZOLE-NS PMX 500 100 100 mg In Saline 1 100ml.bag @ 100 mls/hr IVPB Q6HR [facility] Rx#:[id number] Oral 237 240 Output: Drainage 230 Left Abdomen 230 Urine 680 Emesis 50 Other: Voiding Method Indwelling Catheter Indwelling Catheter Indwelling Catheter # Voids 1 - Labs CBC & Chem 7: 10/30/17 06:23 Labs: Abnormal Lab Results - Last 24 Hours (Table) 10/30/17 Range/Units 06:23 Potassium 3.4 L (3.5-5.1) mmol/L Creatinine 1.46 H (0.66-1.25) mg/dL Glucose 110 H (74-99) mg/dL Calcium 7.5 L (8.4-10.2) mg/dL Assessment and Plan Assessment: As above. Patient complaining of some abdominal bloating. He is nauseated. He did have episodes of vomiting yesterday. Only mild abdominal pain. He is passing flatus. No bowel movement. Continue clear liquid diet only. Ambulate. Add Reglan. CBC tomorrow.
[2017-10-30] MEDS: POTASSIUM CHLORIDE 10 MEQ in SODIUM CHLORIDE 0.9% 100 ML IV SCH ×4 (12:09→21:21)
--- NOTE | 2017-10-30 12:47 | CDI ---
Last Revision, July 2017 Documentation Clarification Form Date: 10/30/17 1242 From: Jackie Bahena RN, CCDS Admit Date: 10/27/2017 4:17:00 PM Patient Name: Andrea Dominguez Visit Number: [id number] ATTENTION: The Clinical Documentation Specialists (CDI) and [facility] Coding Staff appreciate your assistance in clarifying documentation. Please respond to the clarification below the line at the bottom and electronically sign. The CDI & [facility] Coding staff will review the response and follow-up if needed. Please note: Queries are made part of the Legal Health Record. If you have any questions, please contact the author of this message via ITS. Dr. Nando Ramirez Rectal Laceration is documented in the Procedure note and requires Clinical Validation. Patients Admitting Diagnosis: "Adenocarcinoma of the Prostate, Clinical Stage [id number]" Post-Operative Diagnosis: "Adenocarcinoma of the Prostate, Clinical Stage [id number]." Procedure performed: "Robotic-Assisted Laparoscopic Prostatectomy (RALP), Bilateral Pelvic Lymphadenectomy, Primary Closure of Rectal Laceration." History/Risk Factors: Prostate Ca, ETOH Abuse Clinical Indicators: 10/27 General Surgical Consult: "a small defect in the anterior wall the rectum at the level of the prostate. This defect measured approximately 7-8 mm in size. This was repaired by Dr. Ramirez using a running 3-0 Vicryl suture and additional seromuscular sutures placed anteriorly as well. There was no evidence of spillage. We were able to identify the approximate location of the colotomy that I could not visualize any obvious injury." 10/27 Urology Procedure Note: "Vesicle neck dissection extended intraprostatic, resulting in an anterior rectal wall laceration which was identified and repaired primarily." Treatment: 10/27 Urology Procedure Note: "The rectal laceration was closed using 3-0 Vicryl suture in a running full-thickness fashion. The rectal wall was thin, and a second (seromuscular) layer closure was performed, again using 3-0 Vicryl suture in a running fashion, to reinforce the closure. The tissue was not very pliable, and the left vas deferens was sewn over the repair as an additional layer for reinforcement. Consults: General Surgery In order to accurately reflect this patients severity of illness, please clarify if the rectal laceration diagnosis is: An expected post-procedural or post-surgical condition; Integral to the procedure; Inherent to the procedure; An unexpected post-procedural or post-surgical condition related to surgical care; Other, please specify Unable to determine Please continue to document in your progress notes and discharge summary in order to capture severity of illness and risk of mortality. Include clinical findings that support your diagnosis. MTDD
--- NOTE | 2017-10-30 14:41 | PN ---
PROGRESS NOTE DATE OF SERVICE: 10/29/3017 CHIEF COMPLAINT: Status post prostatectomy. HISTORY OF PRESENT ILLNESS: This gentleman had some nausea this morning. He is not running a fever and he has not had a great deal of abdominal pain. PHYSICAL EXAM: Chest is clear. The cardiac exam is normal and the abdomen is soft, nontender. IMPRESSION: 1. Status post prostatectomy. 2. Nausea and vomiting. PLAN: Continue with IV fluids and slowly progress diet and activity. MMODL / IJN: [id number] /
--- NOTE | 2017-10-30 14:48 | PN ---
PROGRESS NOTE DATE OF SERVICE: 10/30/2016 CHIEF COMPLAINT: Status post prostatectomy. HISTORY OF PRESENT ILLNESS: This gentleman is doing fairly well and he apparently threw up again this morning. He has had no significant abdominal pain or fever. Does feel better. He is passing gas now. PHYSICAL EXAM: Chest is clear. The cardiac exam is normal and the abdomen is soft and bowel sounds are present. IMPRESSION: 1. Status post prostatectomy. 2. Hypertension. PLAN: Progress activity and await recommendations of Urology. MMODL / IJN: [id number] /
[2017-10-30] MEDS: ONDANSETRON 4 MG/2 ML VIAL IVP PRN (14:49)
[2017-10-30] MEDS: METOCLOPRAMIDE 5 MG/ML 2 ML VIAL IVP SCH (18:56)
[2017-10-30] MEDS: METOPROLOL TARTRATE 50 MG TAB PO SCH (21:22)
[2017-10-30] MEDS: hydrALAZINE HCL 50 MG TAB PO SCH (21:22)
[2017-10-30] MEDS: LATANOPROST 0.005% OPHTH DROPS 2.5 ML BTL BOTH EYES SCH (21:22)
[2017-10-30] MEDS: ATORVASTATIN 40 MG TAB PO SCH (21:22)
--- NOTE | 2017-10-30 21:39 | P.PN ---
Subjective Progress Note Date: 10/30/17 Principal diagnosis: POD #3, s/p RALP with closure of rectal laceration. Mr. Dominguez states that he is feeling better today. He ambulated in the morales. He is passing flatus but has not had a BM. He is tolerating clear liquids, though he had another episode of emesis. He reports mild incisional discomfort. Objective - Vital Signs Vital signs: Vital Signs Temp 98.5 F 10/30/17 07:00 Pulse 62 10/30/17 07:00 Resp 16 10/30/17 07:00 BP 141/73 10/30/17 07:00 Pulse Ox 97 10/30/17 07:00 Intake & Output 10/29/17 10/30/17 10/30/17 18:59 06:59 18:59 Intake Total 1487 755 Output Total 960 Balance 1487 -205 Weight 107.048 kg Intake: IV 1000 Dextrose 5%-0.45% NaCl 1, 1000 000 ml @ 125 mls/hr IV . Q8H [facility] Rx#:[id number] Intake, IV Titration 250 515 Amount Dextrose 5%-0.45% NaCl 1, 100 250 000 ml @ 125 mls/hr IV . Q8H [facility] Rx#:[id number] Potassium Chloride 20 meq 165 In Sodium Chloride 0.9% 100 ml @ 55 mls/hr IVPB Q2H [facility] Rx#:[id number] Potassium Chloride 20 meq 50 In Water For Injection 1 100ml.bag @ 50 mls/hr IVPB Q2H [facility] Rx#: [id number] metroNIDAZOLE-NS PMX 500 100 100 mg In Saline 1 100ml.bag @ 100 mls/hr IVPB Q6HR [facility] Rx#:[id number] Oral 237 240 Output: Drainage 230 Left Abdomen 230 Urine 680 Emesis 50 Other: Voiding Method Indwelling Catheter Indwelling Catheter Indwelling Catheter # Voids 1 - Constitutional General appearance: Present: average body habitus, no acute distress - Cardiovascular Details: No peripheral edema. - Gastrointestinal Gastrointestinal Comment(s): Incisions clean and dry General gastrointestinal: Present: soft. Absent: distended - Psychiatric Psychiatric: Present: A&O x's 3 - Labs CBC & Chem 7: 10/30/17 06:23 Labs: Abnormal Lab Results - Last 24 Hours (Table) 10/30/17 Range/Units 06:23 Potassium 3.4 L (3.5-5.1) mmol/L Creatinine 1.46 H (0.66-1.25) mg/dL Glucose 110 H (74-99) mg/dL Calcium 7.5 L (8.4-10.2) mg/dL Assessment and Plan (1) Adenocarcinoma of prostate Current Visit: Yes Status: Acute Code(s): C61 - MALIGNANT NEOPLASM OF PROSTATE SNOMED Code(s): 456906581 Plan: Mr. Dominguez's condition is stable. The cause of his nausea is unclear. The Zapata catheter is draining well. The Gerardo-Love drainage is serosanguinous in appearance. He will be advanced to a low-fiber diet, and a Dietary consult was placed. He will undergo potassium replacement, and ambulation was again encouraged.
[2017-10-31] MEDS: DEXTROSE 5%-0.45% NACL 1,000 ML IV SCH ×3 (01:13→09:40)
[2017-10-31] MEDS: METOCLOPRAMIDE 5 MG/ML 2 ML VIAL IVP SCH ×4 (01:14→17:16)
[2017-10-31] MEDS: LACTATED RINGERS 1,000 ML IV SCH (01:29)
[2017-10-31 07:59] LABS: Basophils % (A) 0 %; Eosinophils # (A) 0.1 k/uL (0-0.7); Eosinophils % (A) 1 %; HCT 40.5 % (39.0-53.0); HGB 13.1 gm/dL (13.0-17.5); Lymphocytes # (A) 0.8 k/uL (1.0-4.8); Lymphocytes % (A) 11 %; MCH 27.9 pg (25.0-35.0); MCHC 32.4 g/dL (31.0-37.0); MCV 86.1 fL (80.0-100.0); Mean Platelet Volume 7.2; Monocytes # (A) 0.5 k/uL (0-1.0); Monocytes % (A) 7 %; Neutrophils # (A) 5.6 k/uL (1.3-7.7); Neutrophils % (A) 80 %; Platelet Count 222 k/uL (150-450); RDW 13.4 % (11.5-15.5)
[2017-10-31 08:18] LABS: Albumin 2.9 g/dL (3.5-5.0); Calcium 7.9 mg/dL (8.4-10.2); Potassium 3.3 mmol/L (3.5-5.1); Total Bilirubin 0.3 mg/dL (0.2-1.3); Total Protein 5.3 g/dL (6.3-8.2)
[2017-10-31] MEDS: LEVOFLOXACIN 500MG-D5W PMX 500 MG in DEXTROSE/WATER 1 100ML.BAG IVPB SCH (09:40)
[2017-10-31] MEDS: HEPARIN SODIUM,PORCINE 5,000 UNIT/ML 1 ML VIAL SQ SCH ×2 (09:41→21:26)
[2017-10-31] MEDS: DORZOLAMIDE HCL 2% DROPS 10 ML BTL BOTH EYES SCH ×2 (09:41→21:25)
[2017-10-31] MEDS: METOLAZONE 5 MG TAB PO SCH ×2 (09:43→15:43)
[2017-10-31] MEDS: DOCUSATE 100 MG CAP PO SCH ×2 (09:44→21:25)
[2017-10-31] MEDS ORDERED: DEXTROSE 5%-0.45% NACL 1,000 ML IV SCH (09:45)
[2017-10-31] MEDS: D5-0.45% NACL WITH KCL 20MEQ/L 1,000 ML IV SCH (10:05)
[2017-10-31] MEDS: POTASSIUM CHLORIDE ER 20 MEQ TAB.ER PO SCH (10:06)
--- NOTE | 2017-10-31 10:38 | P.PN ---
<KushAna Maria M - Last Filed: 10/31/17 10:34> Subjective Progress Note Date: 10/31/17 71-year-old male seen up ambulating in the hallway. Patient states passing gas no stool reports no nausea vomiting tolerating diet patient currently is denying abdominal discomfort REAGAN drain left lower quadrant serosanguineous drainage indwelling Zapata catheter efrem urine Robotic-Assisted Laparoscopic Prostatectomy (RALP), Bilateral Pelvic Lymphadenectomy, Primary Closure of Rectal Laceration done on October 27 Objective - Vital Signs Vital signs: Vital Signs Temp 98.3 F 10/31/17 07:36 Pulse 63 10/31/17 07:36 Resp 16 10/31/17 07:37 BP 149/75 10/31/17 07:36 Pulse Ox 94 L 10/31/17 07:36 Intake & Output 10/30/17 10/31/17 10/31/17 18:59 06:59 18:59 Intake Total 1000 2000 Output Total 580 1335 70 Balance 420 665 -70 Weight 107.048 kg Intake: IV 1000 2000 Dextrose 5%-0.45% NaCl 1, 1000 2000 000 ml @ 125 mls/hr IV . Q8H [facility] Rx#:[id number] Output: Drainage 180 160 70 Left Abdomen 180 160 70 Urine 400 1175 Uretheral (Zapata) 400 1175 Other: Voiding Method Indwelling Catheter Indwelling Catheter Indwelling Catheter - Exam Physical exam Abdomen soft surgical tenderness appropriate patient states passing gas belching no bowel movement indwelling Zapata catheter clear efrem urine. REAGAN drain left lower quadrant serosanguineous drainage. Surgical dressing dry. Patient states he has not taken anything for pain mild surgical tenderness - Labs CBC & Chem 7: 10/31/17 07:25 10/31/17 07:25 Labs: Abnormal Lab Results - Last 24 Hours (Table) 10/31/17 10/31/17 Range/Units 07:25 07:25 Lymphocytes # 0.8 L (1.0-4.8) k/uL Potassium 3.3 L (3.5-5.1) mmol/L Creatinine 1.30 H (0.66-1.25) mg/dL Glucose 136 H (74-99) mg/dL Calcium 7.9 L (8.4-10.2) mg/dL Total Protein 5.3 L (6.3-8.2) g/dL Albumin 2.9 L (3.5-5.0) g/dL Assessment and Plan Assessment: Impression Adenocarcinoma of prostate newly diagnosed Hypokalemia Robotic-Assisted Laparoscopic Prostatectomy (RALP), Bilateral Pelvic Lymphadenectomy, Primary Closure of Rectal Laceration done on October 27 Hypertension labile Plan Medicine to address antihypertensive meds Continue postop surgical care Potassium to be replaced DVT and GI prophylaxis Increase activity Pain control The above impression and plan of care have been discussed and directed by signing physician. Ana Maria Currie nurse practitioner acting as scribe for signing physician. <Joseph Oliveros - Last Filed: 10/31/17 22:29> Objective - Vital Signs Vital signs: Vital Signs Temp 98.4 F 10/31/17 21:31 Pulse 76 10/31/17 21:31 Resp 20 10/31/17 21:31 BP 158/79 10/31/17 21:31 Pulse Ox 98 10/31/17 21:31 Intake & Output 10/31/17 10/31/17 11/01/17 06:59 18:59 06:59 Intake Total 2000 100 Output Total 1335 720 70 Balance 665 -620 -70 Intake: IV 2000 100 Dextrose 5%-0.45% NaCl 1, 2000 000 ml @ 125 mls/hr IV . Q8H [facility] Rx#:[id number] Potassium Chloride 20 meq 100 In Sodium Chloride 0.9% 100 ml @ 50 mls/hr IVPB Q2HR [facility] Rx#:[id number] Output: Drainage 160 220 70 Left Abdomen 160 220 70 Urine 1175 500 Uretheral (Zapata) 1175 500 Other: Voiding Method Indwelling Catheter Indwelling Catheter - Labs CBC & Chem 7: 10/31/17 07:25 10/31/17 07:25 Labs: Abnormal Lab Results - Last 24 Hours (Table) 10/31/17 10/31/17 Range/Units 07:25 07:25 Lymphocytes # 0.8 L (1.0-4.8) k/uL Potassium 3.3 L (3.5-5.1) mmol/L Creatinine 1.30 H (0.66-1.25) mg/dL Glucose 136 H (74-99) mg/dL Calcium 7.9 L (8.4-10.2) mg/dL Total Protein 5.3 L (6.3-8.2) g/dL Albumin 2.9 L (3.5-5.0) g/dL Assessment and Plan Assessment: As above. Patient had episodes of nausea and vomiting today. He has been tolerating some of his liquids and solid foods today. He had a small bowel movement yesterday evening. Denies abdominal bloating. Abdominal examination benign. Continue diet as tolerated. We'll follow with you.
[2017-10-31] MEDS: POTASSIUM CHLORIDE 20 MEQ in SODIUM CHLORIDE 0.9% 100 ML IVPB SCH ×5 (10:56→16:31)
--- NOTE | 2017-10-31 12:06 | P.PN ---
Subjective Progress Note Date: 10/31/17 Principal diagnosis: POD #4, s/p RALP with closure of rectal laceration. Mr. Dominguez states that he had a loose bowel movement yesterday evening. He continues to experience mild nausea, as well as belching. He is ambulating. He reports mild incisional discomfort. Objective - Vital Signs Vital signs: Vital Signs Temp 98.3 F 10/31/17 07:36 Pulse 63 10/31/17 07:36 Resp 16 10/31/17 07:37 BP 149/75 10/31/17 07:36 Pulse Ox 94 L 10/31/17 07:36 Intake & Output 10/30/17 10/31/17 10/31/17 18:59 06:59 18:59 Intake Total 1000 2000 Output Total 580 1335 70 Balance 420 665 -70 Weight 107.048 kg Intake: IV 1000 2000 Dextrose 5%-0.45% NaCl 1, 1000 2000 000 ml @ 125 mls/hr IV . Q8H [facility] Rx#:[id number] Output: Drainage 180 160 70 Left Abdomen 180 160 70 Urine 400 1175 Uretheral (Zapata) 400 1175 Other: Voiding Method Indwelling Catheter Indwelling Catheter Indwelling Catheter - Constitutional General appearance: Present: cooperative, no acute distress - Gastrointestinal Gastrointestinal Comment(s): Incisions clean and dry. General gastrointestinal: Present: soft. Absent: distended, tenderness - Psychiatric Psychiatric: Present: A&O x's 3 - Labs CBC & Chem 7: 10/31/17 07:25 10/31/17 07:25 Assessment and Plan (1) Adenocarcinoma of prostate Current Visit: Yes Status: Acute Code(s): C61 - MALIGNANT NEOPLASM OF PROSTATE SNOMED Code(s): 402006313 Plan: Mr. Dominguez's condition is stable. The cause of his nausea remains unclear. Reglan was ordered, and Flagyl was discontinued. The Zapata catheter continues to drain clear yellow urine. The Gerardo-Love drainage is serosanguinous in appearance. He will continue to undergo potassium replacement. I anticipate discharge once his nausea is improved. In the meantime I ordered Ensure for nutrition.
[2017-10-31] MEDS ORDERED: HYDROmorphone 4 MG TABLET PO PRN (15:16)
--- NOTE | 2017-10-31 19:16 | PN ---
PROGRESS NOTE DATE OF SERVICE: 10/31/2017 CHIEF COMPLAINT: Carcinoma of the prostate. HISTORY OF PRESENT ILLNESS: This gentleman seems to be doing fairly well. He is not having any significant pain and he is not running a fever. He is passing gas. He has been nauseated, however, and has thrown up several times. PHYSICAL EXAMINATION: Vital signs are normal. Chest is clear. Cardiac exam is normal. The abdomen is somewhat distended, which is normal for him. Bowel sounds are heard. IMPRESSION: 1. Status post robotic-assisted laparoscopic prostatectomy. 2. Nausea and vomiting, etiology unknown -- related to medications? MMODL / IJN: [id number] /
[2017-10-31] MEDS: hydrALAZINE HCL 50 MG TAB PO SCH (21:25)
[2017-10-31] MEDS: ATORVASTATIN 40 MG TAB PO SCH (21:25)
[2017-10-31] MEDS: LATANOPROST 0.005% OPHTH DROPS 2.5 ML BTL BOTH EYES SCH (21:26)
[2017-10-31] MEDS: METOPROLOL TARTRATE 50 MG TAB PO SCH (21:26)
[2017-10-31] MEDS: ONDANSETRON 4 MG/2 ML VIAL IVP PRN (22:39)
[2017-10-31 23:14] VITALS: RESP 18
[2017-11-01] MEDS: METOCLOPRAMIDE 5 MG/ML 2 ML VIAL IVP SCH ×3 (00:56→12:23)
[2017-11-01] MEDS: D5-0.45% NACL WITH KCL 20MEQ/L 1,000 ML IV SCH (00:58)
[2017-11-01] MEDS: LACTATED RINGERS 1,000 ML IV SCH (05:31)
[2017-11-01 06:04] VITALS: BP 134/69; PULSE 61; TEMP 98.3
[2017-11-01] MEDS: LEVOFLOXACIN 500MG-D5W PMX 500 MG in DEXTROSE/WATER 1 100ML.BAG IVPB SCH (07:37)
[2017-11-01] MEDS: DORZOLAMIDE HCL 2% DROPS 10 ML BTL BOTH EYES SCH (08:48)
[2017-11-01] MEDS: HEPARIN SODIUM,PORCINE 5,000 UNIT/ML 1 ML VIAL SQ SCH (08:48)
[2017-11-01] MEDS: DOCUSATE 100 MG CAP PO SCH (08:49)
[2017-11-01] MEDS: METOLAZONE 5 MG TAB PO SCH ×2 (08:49→15:47)
[2017-11-01 10:09] LABS: Calcium 8.1 mg/dL (8.4-10.2); Potassium 3.7 mmol/L (3.5-5.1)
--- NOTE | 2017-11-01 14:49 | P.DS ---
Providers Date of admission: 10/27/17 16:17 Expected date of discharge: 11/01/17 Attending physician: Nando Ramirez Consults: Dr. Verónica Oliveros Primary care physician: Drew Ortiz - Discharge Diagnosis(es) (1) Adenocarcinoma of prostate Current Visit: Yes Status: Acute Hospital Course: On the day of admission, the patient underwent a robotic-assisted laparoscopic prostatectomy (RALP) with bilateral pelvic lymphadenectomy. It was difficult to establish the plane of dissection between the bladder neck and prostate, and during the dissection a small laceration of the anterior rectal wall was noted. This was an unexpected condition known to be a risk associated with this surgery, and Dr. Oliveros from General Surgery was consulted. A multilayer closure of the laceration was performed, and when Dr. Oliveros performed sigmoidoscopy the closure could not be identified and there was no air leak from the rectum. The perioperative course was fairly unremarkable, other than the fact that the patient experienced persistent nausea, perhaps related to a prolonged paralytic ileus. He remained afebrile throughout the hospitalization , with no evidence of leukocytosis. He was hypokalemic, requiring considerable potassium supplementation. His diet was advanced to a low fiber diet, which he tolerated in small amounts. He had at least 2 loose bowel movements prior to discharge, and was passing flatus at the time of discharge. The Zapata catheter was draining clear yellow urine at the time of discharge, and the REAGAN drain was draining serosanguineous fluid. Procedures: Robotic-assisted laparoscopic prostatectomy (RALP) with bilateral pelvic lymphadenectomy and primary closure of rectal laceration on 10/27/2017. Patient Condition at Discharge: Fair Plan - Discharge Summary Discharge Rx Participant: Yes New Discharge Prescriptions: New Hydrocodone/Acetaminophen [Tabor 5-325] 1 - 2 each PO Q4HR PRN #15 tab PRN Reason: Pain Ondansetron [Zofran] 4 mg PO Q8HR PRN #10 tab PRN Reason: Nausea And Vomiting No Action Dorzolamide 2% [Trusopt 2%] 1 drops BOTH EYES BID hydrALAZINE HCL [Apresoline] 100 mg PO HS Latanoprost Ophth [Xalatan 0.005%] 1 drops BOTH EYES HS Cholecalciferol [Vitamin D3] 5,000 unit PO HS Atorvastatin [Lipitor] 40 mg PO HS Metoprolol Tartrate [Lopressor] 100 mg PO HS Metolazone [Zaroxolyn] 10 mg PO BID Discharge Medication List Atorvastatin [Lipitor] 40 mg PO HS 10/24/17 [History] Cholecalciferol [Vitamin D3] 5,000 unit PO HS 10/24/17 [History] Dorzolamide 2% [Trusopt 2%] 1 drops BOTH EYES BID 10/24/17 [History] Latanoprost Ophth [Xalatan 0.005%] 1 drops BOTH EYES HS 10/24/17 [History] Metolazone [Zaroxolyn] 10 mg PO BID 10/24/17 [History] Metoprolol Tartrate [Lopressor] 100 mg PO HS 10/24/17 [History] hydrALAZINE HCL [Apresoline] 100 mg PO HS 10/24/17 [History] Hydrocodone/Acetaminophen [Tabor 5-325] 1 - 2 each PO Q4HR PRN #15 tab 11/01/17 [Rx] Ondansetron [Zofran] 4 mg PO Q8HR PRN #10 tab 11/01/17 [Rx] Follow up Appointment(s)/Referral(s): Joseph Oliveros MD [Medical Doctor] - 1 Week Nando Ramirez MD [STAFF PHYSICIAN] - 11/03/17 Activity/Diet/Wound Care/Special Instructions: Discharge home with Zapata catheter. No tub bath for six weeks. Shower daily. No lifting over 4 pounds for the next 6 weeks. Monitor REAGAN drain and record. May use ice packs to surgical site. Discharge Disposition: HOME SELF-CARE
--- NOTE | 2017-11-01 18:20 | PN ---
PROGRESS NOTE CHIEF COMPLAINT: Status post RALP with nausea. HISTORY OF PRESENT ILLNESS: This gentleman is still having trouble with nausea and vomiting. He is doing well otherwise. He is passing gas and stool. He is not febrile and he is not having a lot of pain. He is wondering if the nausea and vomiting could be due to his analgesics. PHYSICAL EXAMINATION: CHEST: Clear. Cardiac exam is normal. The abdomen is protuberant and soft and nontender. IMPRESSION: 1. Status post prostatectomy. 2. Nausea. PLAN: Try stopping analgesics to see if this clears up the nausea. MMODL / IJN: [id number] /
[2017-11-02] MEDS ORDERED: LEVOFLOXACIN 500 MG TAB PO SCH (09:00)
== END 2017-11-01 16:47 | disposition home or self-care (01) | DRG 908 ==
LOC: OR 05:43 → 3SUR 16:17 → OR 17:16 → 3SUR 10-30 13:22 → 4MS4W 10-31 19:20
PROVIDERS: ADMIT Urology; ATTEND Urology
PROC: 07TC4ZZ Resection of Pelvis Lymphatic, Percutaneous Endoscopic Approach (ICD-10-PCS; 2017-10-27)
PROC: 0VT04ZZ Resection of Prostate, Percutaneous Endoscopic Approach (ICD-10-PCS; 2017-10-27)
PROC: 8E0W4CZ Robotic Assisted Procedure of Trunk Region, Percutaneous Endoscopic Approach (ICD-10-PCS; 2017-10-27)
PROC: 8E0W4CZ Robotic Assisted Procedure of Trunk Region, Percutaneous Endoscopic Approach (ICD-10-PCS; 2017-10-27)
PROC: 0DJD8ZZ Inspection of Lower Intestinal Tract, Via Natural or Artificial Opening Endoscopic (ICD-10-PCS; 2017-10-27)
PROC: 0DQP4ZZ Repair Rectum, Percutaneous Endoscopic Approach (ICD-10-PCS; principal; 2017-10-27 07:30)
DX: K91.72 Accidental puncture and laceration of a digestive system organ or structure during other procedure (principal); K56.0 Paralytic ileus; C61 Malignant neoplasm of prostate; N18.3 Chronic kidney disease, stage 3 (moderate); I12.9 Hypertensive chronic kidney disease with stage 1 through stage 4 chronic kidney disease, or unspecified chronic kidney disease; N40.0 Benign prostatic hyperplasia without lower urinary tract symptoms; F10.10 Alcohol abuse, uncomplicated; E87.6 Hypokalemia; E78.5 Hyperlipidemia, unspecified; E78.00 Pure hypercholesterolemia, unspecified; K64.9 Unspecified hemorrhoids; E66.9 Obesity, unspecified; Z68.32 Body mass index [BMI] 32.0-32.9, adult; K57.90 Diverticulosis of intestine, part unspecified, without perforation or abscess without bleeding; Z79.82 Long term (current) use of aspirin; Z79.899 Other long term (current) drug therapy; Z86.010 Personal history of colon polyps; Z88.0 Allergy status to penicillin; Z88.8 Allergy status to other drugs, medicaments and biological substances; Z91.011 Allergy to milk products; Y83.6 Removal of other organ (partial) (total) as the cause of abnormal reaction of the patient, or of later complication, without mention of misadventure at the time of the procedure; Y92.234 Operating room of hospital as the place of occurrence of the external cause
CPT/HCPCS: 80048; 80053; 85025; 86850; 86900; 86901; 88305; 88307; 88309; 88331

== ENCOUNTER → 2017-11-09 | Outpatient (CLI) | payer MEDICARE ==
--- NOTE | 2017-11-09 14:01 | CT ---
EXAMINATION TYPE: CT abdomen pelvis wo con DATE OF EXAM: 11/09/2017 COMPARISON: Abdominal ultrasound dated 10/11/2016. HISTORY: Prostate cancer, possible fistula CT DLP: 2656 mGycm Automated exposure control for dose reduction was used. TECHNIQUE: Precontrast limited images through the pelvis were performed. After instillation of appro ximately 200 mL of Isovue 300/50 ml mixed into 500 ml saline helical acquisition of images was perfor med from the lung bases through the pelvis. Limited postevacuation images were obtained of the pelvis . FINDINGS: Lack of intravenous contrast limits evaluation of the solid viscera. LUNG BASES: No significant abnormality is appreciated. Calcified granulomas are seen within the media stinum. Minimal right basilar subsegmental atelectasis is noted. LIVER/GB: Unenhanced liver contains multiple hypoattenuated lesions measuring up to 7 mm within segme nt 8 of the liver that are too small to accurately characterize. PANCREAS: No significant abnormality is seen. SPLEEN: No significant abnormality is seen. ADRENALS: There is slight thickening of the left adrenal gland without nodularity suggestive of adren al gland hyperplasia. Similar thickening on the right is seen. KIDNEYS: Right midpole renal cyst is seen. Right upper pole cyst measures 2.6 cm. Probable smaller il l-defined midpole cyst is seen although incompletely evaluated without contrast. Additionally left si ded renal cysts are seen with the largest emanating from the lower pole measuring up to 4.7 cm extend ing into the renal sinus without hydronephrosis. FREE AIR: Punctate focus is seen within the umbilicus, presumed postsurgical with Gerardo Love drai n coiled within the mesentery. Trace amount of pneumoperitoneum is also seen in the fissure for the f alciform ligament and punctate foci are seen within the anterior abdomen. REPRODUCTIVE ORGANS: No significant abnormality is seen URINARY BLADDER: Zapata catheter is placed within the urinary bladder. On precontrast images no air i s seen between the urinary bladder and rectum to suggest a colorectal fistula, however density is see n intraperitoneally surrounding the posterior urinary bladder within the retrovesicular space and inf lammatory changes in the intraperitoneal region and the space of Retzius with no extent into the extr aperitoneal pelvis. Upon retrograde instillation of contrast through the Zapata catheter intraperitoneal extravasation of contrast is seen with accumulation in the retrovesicular space and contrast conforming around the con tour of the rectum. Is suspected site of injury is seen on series 4 image 27 and 26 located within th e right posterior lateral wall of the urinary bladder neck. Post void images contrast remains accumul ated within the retrovesicular space and surrounds the rectal wall, however no contrast is seen exten ding into the lumen of the rectum. ADENOPATHY: Low density areas are seen in the external iliac chains, which may relate to postsurgica l seromas or adenopathy. No additional adenopathy is seen within the pelvis. Small lymph nodes within the external iliac chain on series 3 image 10 maintain fatty leo. The previously described fluid co llections are seen on series 3 image 17 measuring 3.2 x 3.4 cm on the right and 3.7 x 2.1 cm on the l eft. OSSEOUS STRUCTURES: No significant abnormality is seen. BOWEL: No evidence of bowel dilatation. OTHER: Small periumbilical fat filled hernia is noted. IMPRESSION: 1. Intraperitoneal urinary bladder leak with extension of contrast into the retrovesicular space, maynor pected from the right inferior lateral urinary bladder neck with contrast extending posteriorly to marinelli rround the rectum although no intraluminal contrast is seen despite delayed imaging and therefore no colovesicular fistula is seen. FINDINGS WERE DISCUSSED DIRECTLY WITH DR. ROSA BY DR. HERNANDEZ AT 1342 P M ON 11/09/2017. 2. Punctate foci of scattered pneumoperitoneum, likely postsurgical with Gerardo-Love peritoneal paul inage catheter in place. 3. Fluid density rounded structures bilaterally along the external iliac chains. These could be relat ed to postoperative seroma, however short-term follow-up is recommended to ensure no adenopathy in th is patient with a history of prostate carcinoma. No additional suspicious pelvic adenopathy is identi fied. 4. Multiple hepatic lesions that are too small to accurately characterize and all subcentimeter. Thes e could be further defined with MR. Alternatively surveillance could be performed.
== END | disposition home or self-care (01) ==
LOC: RADCTMAIN 11:14
PROVIDERS: ATTEND Urology
DX: N39.498 Other specified urinary incontinence (principal); R19.09 Other intra-abdominal and pelvic swelling, mass and lump; S36.63XA Laceration of rectum, initial encounter; Z88.0 Allergy status to penicillin; Z88.8 Allergy status to other drugs, medicaments and biological substances
CPT/HCPCS: 74176; Q9967

== ENCOUNTER → 2017-11-22 | Day surgery (SDC) | payer MEDICARE ==
--- NOTE | 2017-11-22 17:29 | FL ---
EXAMINATION TYPE: FL voiding cystourethrogram DATE OF EXAM: 11/22/2017 COMPARISON: Correlation CT 11/09/2017 HISTORY: 71 year-old male history of prostate cancer, status post prostatectomy 10/23/2017, recheck for leak. Total fluoroscopy time: 1 minute 7 seconds Total images: 18 FINDINGS: Following the administration of a total of 250 ml Cystografin contrast material into the bladder via the patient's indwelling Zapata catheter, there is progressive distention noted of the bladder. There is relatively smooth bladder margins. As the bladder progressively fills, the patient urinates around the catheter. Multiple projections are obtained. On the lateral view only, a small extraperitoneal e xtension of contrast projects from the posterior bladder urethral anastomosis. No other extraperitone al or intraperitoneal contrast extravasation is identified. IMPRESSION: Tiny extension of contrast along the posterior margin of the anastomosis seen only after review of th e saved images on the lateral view. Findings suggest a tiny residual extraperitoneal leak.
== END ==
LOC: RADPROMAIN 12:54
PROVIDERS: ATTEND Urology
DX: C61 Malignant neoplasm of prostate (principal)
CPT/HCPCS: 74455; 51600; Q9962

== ENCOUNTER → 2017-12-04 | Outpatient (CLI) | payer MEDICARE ==
--- NOTE | 2017-12-04 14:43 | FL ---
EXAMINATION TYPE: FL voiding cystourethrogram DATE OF EXAM: 12/04/2017 COMPARISON: CT abdomen pelvis November 09, 2017. Fluoroscopic assisted voiding November 22, 2017. Cystoureth rogram HISTORY: Known leak from prostate surgery progress study TECHNIQUE: Fluoroscopic assisted voiding cystourethrogram. FINDINGS: Fluoroscopic guidance was provided during retrograde cystourethrogram procedure performed by myself. A total of 73 seconds of fluoroscopic time was utilized during the procedure and 11 spot images were saved to PACS. Exam is suboptimal as there is malfunction in the fluoroscopic machine and I could not take pictures initially, also I could not take more than one picture without error. Zapata catheter is in place. There appears to be persistent area of contrast extravasation along the i nferior posterior margin of bladder with wall irregularity that remains present. IMPRESSION: Suboptimal study, Persistent leak along posterior inferior margin of bladder presumed ext raperitoneal is felt present. Consider progress VCUG or repeat CT cystogram in one to 2 weeks' time t o reassess.
== END | disposition home or self-care (01) ==
LOC: RADFLMAIN 13:24
PROVIDERS: ATTEND Urology
DX: C61 Malignant neoplasm of prostate (principal)
CPT/HCPCS: 74455; Q9962

== ENCOUNTER → 2017-12-11 | Outpatient (CLI) | payer MEDICARE ==
--- NOTE | 2017-12-11 13:18 | FL ---
EXAMINATION TYPE: FL voiding cystourethrogram DATE OF EXAM: 12/11/2017 COMPARISON: Cystogram is 12/04/2017 and 11/22/[address] cystogram 11/09/2017 HISTORY: 71 year-old male history of prostate cancer, status post prostatectomy 10/23/2017, recheck for leak. Local infection of skin, subcutaneous tissues. Total fluoroscopy time: 1 minute 35 seconds Total images: 41 FINDINGS: Following the administration of a total of 275 ml Cystografin contrast material into the bladder via the patient's indwelling Zapata catheter, there is progressive distention noted of the bladder. There are relatively smooth bladder margins. As the bladder progressively fills, the patient urinates aroun d the catheter. Multiple projections are obtained. Particular attention to the right decubitus and slightly IBANEZ proje ction to assess the right posterior anastomosis which corresponds to the site of leak seen on CT of . The previous slight posterior extension of contrast at the bladder neck is no longer identified. No evidence for intraperitoneal or extraperitoneal leak. IMPRESSION: The previously described small posterior extraperitoneal leak is no longer identified. No intraperito cindy or extraperitoneal leak seen.
== END | disposition home or self-care (01) ==
LOC: RADFLMAIN 11:21 → EDSTATUS 11:30
PROVIDERS: ATTEND Urology
DX: N39.498 Other specified urinary incontinence (principal)
CPT/HCPCS: 74455; Q9962

== ENCOUNTER 2019-03-01 01:27 | Inpatient (IN) | payer MEDICARE ==
--- NOTE | 2019-03-01 01:28 | ED ---
General Adult HPI - General Stated complaint: vomiting Time Seen by Provider: 03/01/19 01:28 - History of Present Illness Initial comments: Mr Dominguez is a 73-year-old -[place] gentleman who presents the emergency department today for evaluation of multiple vague complaints. She mentions that he was seen by his primary care physician recently and was told that he had a left-sided effusion on chest x-ray. He cannot recall why he had this chest x- ray done. Patient reports that he is just not feeling well, he feels that he doesn't have an appetite at bedside reports that he is vomited and she is concerned he may be dehydrated. Patient reports that this evening he began feeling cramping in his left shoulder in the trapezius muscle. Patient denies any injury or recent strenuous activity which would've caused the pain in his left shoulder. Patient also reports feeling nauseated. Patient denies any chest pain, cough or shortness of breath. He denies any abdominal pain though he did feel nauseated have some vomiting. He had a normal bowel movement this morning. - Related Data Home Medications Medication Instructions Recorded Confirmed Atorvastatin [Lipitor] 40 mg PO HS 10/24/17 10/27/17 Cholecalciferol [Vitamin D3] 5,000 unit PO HS 10/24/17 10/27/17 Dorzolamide 2% [Trusopt 2%] 1 drops BOTH EYES BID 10/24/17 10/27/17 Latanoprost Ophth [Xalatan 0.005%] 1 drops BOTH EYES HS 10/24/17 10/27/17 Metolazone [Zaroxolyn] 10 mg PO BID 10/24/17 10/27/17 Metoprolol Tartrate [Lopressor] 100 mg PO HS 10/24/17 10/27/17 hydrALAZINE HCL [Apresoline] 100 mg PO HS 10/24/17 10/27/17 Previous Rx's Medication Instructions Recorded Hydrocodone/Acetaminophen [Doon 1 - 2 each PO Q4HR PRN #15 tab 11/01/17 5-325] Ondansetron [Zofran] 4 mg PO Q8HR PRN #10 tab 11/01/17 Allergies Allergy/AdvReac Type Severity Reaction Status Date / Time GILMAR Inhibitors Allergy Anaphylaxis Verified 10/24/17 09:18 Penicillins Allergy Anaphylaxis Verified 10/24/17 09:18 Milk Containing Products AdvReac Abdominal Verified 10/31/17 10:11 Pain Review of Systems ROS Statement: Those systems with pertinent positive or pertinent negative responses have been documented in the HPI. ROS Other: All systems not noted in ROS Statement are negative. Past Medical History Past Medical History: Cancer, Eye Disorder, Hyperlipidemia, Hypertension, Prostate Disorder Additional Past Medical History / Comment(s): GLAUCOMA BILAT EYES. HX COLON CANCER History of Any Multi-Drug Resistant Organisms: None Reported Additional Past Surgical History / Comment(s): COLONOSCOPY Past Anesthesia/Blood Transfusion Reactions: No Reported Reaction Past Psychological History: No Psychological Hx Reported Smoking Status: Former smoker Past Alcohol Use History: Occasional Additional Past Alcohol Use History / Comment(s): QUIT SMOKING 40 YEARS AGO Past Drug Use History: None Reported - Past Family History Mother Family Medical History: No Reported History General Exam - General Exam Comments Initial Comments: Physical Exam GENERAL: Patient is well-developed and well-nourished. Patient is nontoxic and well-hydrated and is in no distress. HENT: Normocephalic, Atraumatic. EYES: PERRL, EOMI Conjunctival pallor PULMONARY: Decreased breath sounds on the left CARDIOVASCULAR: There is a regular rate and rhythm without any murmurs gallops or rubs. Systolic murmur ABDOMEN: Soft and nontender with normal bowel sounds. SKIN: Skin is dry : Deferred NEUROLOGIC: Patient is alert and oriented x3. Moving all extremities spontaneously MUSCULOSKELETAL: 2+ pitting edema bilaterally PSYCHIATRIC: Normal psychiatric evaluation Course Vital Signs 03/01/19 03/01/19 03/01/19 01:31 01:33 01:40 Temperature 97.9 F Pulse Rate 80 80 Respiratory 18 20 Rate Blood Pressure 141/64 O2 Sat by Pulse 96 96 95 Oximetry 03/01/19 03/01/19 03/01/19 02:10 02:40 03:10 Temperature Pulse Rate 75 74 72 Respiratory 20 18 20 Rate Blood Pressure 111/55 130/74 121/77 O2 Sat by Pulse 95 95 95 Oximetry 03/01/19 03/01/19 03/01/19 03:30 03:40 04:10 Temperature Pulse Rate 77 78 75 Respiratory 16 12 17 Rate Blood Pressure 121/77 128/74 152/80 O2 Sat by Pulse 95 97 95 Oximetry 03/01/19 03/01/19 03/01/19 04:50 05:00 05:10 Temperature Pulse Rate 75 74 76 Respiratory 20 20 18 Rate Blood Pressure 150/82 150/82 146/87 O2 Sat by Pulse 95 96 Oximetry EKG Findings - EKG Comments: EKG Findings:: CT was obtained due to complaint of left shoulder pain. EKG was obtained at 1:37 AM, rate is 81 rhythm is sinus with frequent PACs, there is normal axis, NH 138, QRS 82, QTc 420, QTC is prolonged at 487 there are no acute ST elevations or depressions there is no evidence of acute ischemia or infarction. Medical Decision Making - Medical Decision Making Patient was seen and evaluated history is obtained from the patient as well as at bedside This 73-year-old gentleman with history of hypertension was told recently that he may have a heart murmur and effusion on chest x-ray Patient reports feeling generalized sickness, decreased appetite, nausea, muscle cramping worsen his left upper extremity aside upon arrival patient was placed on the hall monitor and was noted to have a very short run of ventricular tachycardia ranging about 6-8 beats Full cardiac workup was initiated in addition to blood cultures There is difficult vascular access, left-sided external jugular vein was accessed Labs resulted with multiple very significant abnormalities. Patient denies any history of kidney disease but is noted to have a creatinine of greater than 18, and addition patient's noted to be anemic with hemoglobin of 7.8 These results were discussed with the patient who reports he has never been told he is anemic or has kidney disease in the past Patient care was discussed with patient's primary care physician Dr. Ortiz who agrees with plan for admission to the hospital and evaluation by nephrology. - Lab Data Result diagrams: 03/01/19 02:30 03/01/19 02:30 Lab Results 03/01/19 03/01/19 03/01/19 Range/Units 02:30 02:30 02:30 WBC 14.7 H (3.8-10.6) k/uL RBC 2.76 L (4.30-5.90) m/uL Hgb 7.8 L (13.0-17.5) gm/dL Hct 23.4 L (39.0-53.0) % MCV 84.6 (80.0-100.0) fL MCH 28.1 (25.0-35.0) pg MCHC 33.3 (31.0-37.0) g/dL RDW 14.5 (11.5-15.5) % Plt Count 537 H (150-450) k/uL Neutrophils % 93 % Lymphocytes % 2 % Monocytes % 4 % Eosinophils % 0 % Basophils % 0 % Neutrophils # 13.7 H (1.3-7.7) k/uL Lymphocytes # 0.4 L (1.0-4.8) k/uL Monocytes # 0.6 (0-1.0) k/uL Eosinophils # 0.0 (0-0.7) k/uL Basophils # 0.0 (0-0.2) k/uL PT (9.0-12.0) sec INR (<1.2) APTT (22.0-30.0) sec Sodium 133 L (137-145) mmol/L Potassium 4.7 (3.5-5.1) mmol/L Chloride 95 L (98-107) mmol/L Carbon Dioxide 16 L (22-30) mmol/L Anion Gap 22 mmol/L BUN 133 H* (9-20) mg/dL Creatinine 18.48 H* (0.66-1.25) mg/dL Est GFR (CKD-EPI)AfAm 3 (>60 ml/min/1.73 sqM) Est GFR (CKD-EPI)NonAf 2 (>60 ml/min/1.73 sqM) Glucose 147 H (74-99) mg/dL Plasma Lactic Acid Barry 0.9 (0.7-2.0) mmol/L Calcium 8.3 L (8.4-10.2) mg/dL Total Bilirubin 0.6 (0.2-1.3) mg/dL AST 31 (17-59) U/L ALT 23 (21-72) U/L Alkaline Phosphatase 96 (38-126) U/L Creatine Kinase 160 (55-170) U/L Troponin I (0.000-0.034) ng/mL Total Protein 6.2 L (6.3-8.2) g/dL Albumin 3.5 (3.5-5.0) g/dL 03/01/19 03/01/19 Range/Units 02:30 02:30 WBC (3.8-10.6) k/uL RBC (4.30-5.90) m/uL Hgb (13.0-17.5) gm/dL Hct (39.0-53.0) % MCV (80.0-100.0) fL MCH (25.0-35.0) pg MCHC (31.0-37.0) g/dL RDW (11.5-15.5) % Plt Count (150-450) k/uL Neutrophils % % Lymphocytes % % Monocytes % % Eosinophils % % Basophils % % Neutrophils # (1.3-7.7) k/uL Lymphocytes # (1.0-4.8) k/uL Monocytes # (0-1.0) k/uL Eosinophils # (0-0.7) k/uL Basophils # (0-0.2) k/uL PT 10.8 (9.0-12.0) sec INR 1.0 (<1.2) APTT 29.7 (22.0-30.0) sec Sodium (137-145) mmol/L Potassium (3.5-5.1) mmol/L Chloride (98-107) mmol/L Carbon Dioxide (22-30) mmol/L Anion Gap mmol/L BUN (9-20) mg/dL Creatinine (0.66-1.25) mg/dL Est GFR (CKD-EPI)AfAm (>60 ml/min/1.73 sqM) Est GFR (CKD-EPI)NonAf (>60 ml/min/1.73 sqM) Glucose (74-99) mg/dL Plasma Lactic Acid Barry (0.7-2.0) mmol/L Calcium (8.4-10.2) mg/dL Total Bilirubin (0.2-1.3) mg/dL AST (17-59) U/L ALT (21-72) U/L Alkaline Phosphatase (38-126) U/L Creatine Kinase (55-170) U/L Troponin I 0.016 (0.000-0.034) ng/mL Total Protein (6.3-8.2) g/dL Albumin (3.5-5.0) g/dL Disposition Clinical Impression: ARF (acute renal failure) Disposition: ADMITTED IP TO THIS [facility] Condition: Serious Is patient prescribed a controlled substance at d/c from ED?: No
[2019-03-01 02:45] LABS: Basophils % (A) 0 %; Eosinophils % (A) 0 %; HCT 23.4 % (39.0-53.0); HGB 7.8 gm/dL (13.0-17.5); Lymphocytes # (A) 0.4 k/uL (1.0-4.8); Lymphocytes % (A) 2 %; MCH 28.1 pg (25.0-35.0); MCHC 33.3 g/dL (31.0-37.0); MCV 84.6 fL (80.0-100.0); Monocytes # (A) 0.6 k/uL (0-1.0); Monocytes % (A) 4 %; Neutrophils # (A) 13.7 k/uL (1.3-7.7); Neutrophils % (A) 93 %; Platelet Count 537 k/uL (150-450); RBC 2.76 m/uL (4.30-5.90); RDW 14.5 % (11.5-15.5); WBC 14.7 k/uL (3.8-10.6)
[2019-03-01 02:53] LABS: Albumin 3.5 g/dL (3.5-5.0); Calcium 8.3 mg/dL (8.4-10.2); Potassium 4.7 mmol/L (3.5-5.1); Total Bilirubin 0.6 mg/dL (0.2-1.3); Total Protein 6.2 g/dL (6.3-8.2)
[2019-03-01 02:56] LABS: Partial Thromboplastin Time 29.7 sec (22.0-30.0); Prothrombin Time 10.8 sec (9.0-12.0)
--- NOTE | 2019-03-01 02:56 | XR ---
INDICATION: Fever COMPARISON: None FINDINGS: Single frontal view of the chest is submitted for interpretation. The heart is enlarged. Pulmonary vasculature appears mildly congested. There is a moderate left pleural effusion with left basilar airspace disease. Minimal right basilar opacities are also present. There is no pneumothorax. Regional skeleton appears intact. IMPRESSION: 1. Moderate left pleural effusion. Left basilar airspace disease, atelectasis or pneumonia. 2. Minor right basilar opacities, atelectasis or infiltrate. 3. Cardiomegaly and mild pulmonary vascular congestion.
[2019-03-01] MEDS ORDERED: NALOXONE 0.4 MG/ML 1 ML VIAL IV PRN (03:49)
[2019-03-01] MEDS ORDERED: SODIUM CHLORIDE 0.9% 1,000 ML IV SCH (04:00)
[2019-03-01] MEDS: MORPHINE SULFATE 4 MG/ML SYRINGE IV PRN ×2 (04:01→13:01)
[2019-03-01 06:47] LABS: Glucose,Whole Blood 160 mg/dL (75-99)
[2019-03-01] MEDS ORDERED: ONDANSETRON 4 MG TAB PO PRN (08:23)
--- NOTE | 2019-03-01 08:47 | CONS ---
CONSULTATION REASON FOR CONSULT: Renal failure. HISTORY OF PRESENT ILLNESS: The patient is a 73-year-old male who was admitted to the hospital with vague complaints of weakness, not feeling well. He was nauseated. He did have an episode of emesis at home. The patient denied any diarrhea. He had some shoulder pain and he states he saw his regular physician yesterday and then continued to feel worse and therefore came into the hospital. The patient was noted to have a serum creatinine of 18.4 mg/dL. He denies any previous history of kidney disease. Previous creatinine on 08/10/2018 was 1.4 mg/dL. The patient denies use of nonsteroidal anti-inflammatory agents. He was maintained on diuretics at home and I do not see any GILMAR inhibitors on his home med list. The patient did state that he has not had a good appetite for past few days. He did admit to decreased oral intake for the past week or so. The patient did have urine when initial Zapata catheter was placed in the ER. He is currently maintained on IV fluids. Blood pressure has not been significantly low. There was a systolic of 111 mmHg, which was the lowest. PAST MEDICAL HISTORY: Hypertension, chronic kidney disease, baseline creatinine about 1.4 mg/dL, stage 3, most likely secondary to nephrosclerosis. vitamin D deficiency, hyperlipidemia, history of BPH, history of colon cancer, and glaucoma. PAST SURGICAL HISTORY: Colonoscopy. SOCIAL HISTORY: Patient quit smoking 40 years ago. No history of drug abuse or alcohol abuse. MEDICATIONS: Medications at home included Lipitor, vitamin D3, Zaroxolyn, Lopressor, hydralazine, [place], Zofran. ALLERGIES: Allergies Include GILMAR INHIBITORS and PENICILLIN which cause anaphylaxis and MILK CONTAINING PRODUCTS cause abdominal pain. REVIEW OF SYSTEMS: As per HPI. Other systems negative. PHYSICAL EXAMINATION: On examination, patient is comfortable, awake, alert, oriented x3. He is not in any acute distress. Blood pressure is 146/81, heart rate 78 per minute. He is afebrile. EXAMINATION OF THE HEART: S1 and S2. EXAMINATION OF THE LUNGS: Bilateral breath sounds are heard. Abdomen is soft, nontender. Examination of the lower extremities shows no significant edema. [employer] exam is grossly intact. No asterixis are noted. LABS: Labs show sodium 133, potassium 4.7, CO2 of 16, BUN 133, serum creatinine 18.48, hemoglobin 7.8 g/dL. ASSESSMENT: 1. Acute kidney injury. Rule out obstructive uropathy. I am not sure how much urine was obtained when initial Zapata catheter was placed. I do only see 20 mL and currently there is no urine in the bag. Therefore, I do not believe he has had significant urine retention. This may be the most likely underlying acute tubular necrosis. The patient will be maintained on IV fluids. He is currently not on any nephrotoxic medications. Ultrasound of the kidneys has been ordered. We will also check a urinalysis. 2. Anion gap metabolic acidosis secondary to renal failure. Start patient on IV bicarb. 3. Hypovolemic hyponatremia. Continue with IV hydration. 4. Anemia. Rule out iron deficiency. Previous hemoglobin was 13.7 in July. 5. Chronic kidney disease, NKF stage 3, most likely secondary to nephrosclerosis. Previous creatinine 1.4 in July of 2018. PLAN: Maintain patient on IV fluids changed to bicarb drip. Hold off on all diuretics. Check urinalysis. Check ultrasound of the kidneys. Check iron profile. Repeat labs later on this morning as well as tomorrow. Thank you for this consultation. We will continue to follow the patient with you during his hospitalization. MMODL / IJN: [id number] /
--- NOTE | 2019-03-01 08:48 | US ---
EXAMINATION TYPE: US renals and bladder DATE OF EXAM: 03/01/2019 COMPARISON: CT abdomen and pelvis November 09, 2017 CLINICAL HISTORY: Pain. EXAM MEASUREMENTS: Right Kidney: 12.3 x 5.1 x 5.5 cm Left Kidney: 11.3 x 5.7 x 5.8 cm Patient has SOB and is unable to hold his breath making exam technically difficult. Right Kidney: upper pole cyst measuring 2.8 x 2.6 x 2.8cm Left Kidney: cysts some irregular in shape, largest measuring 3.5 x 3.8 x 2.8cm Bladder: not visualized, empty Bilateral effusions noted. Examination is suboptimal per technologist due to patient's inability to breath-hold. A 2.8 cm partia lly exophytic cyst with thin septa upper pole level right kidney is not significantly changed in size or appearance from recent CT. Bladder is collapsed and thus cannot be evaluated. Left kidney shows s everal simple appearing thin-walled cysts on images saved. No hydronephrosis is evident bilaterally. IMPRESSION: No hydronephrosis is seen bilaterally.
--- NOTE | 2019-03-01 09:17 | CT ---
EXAMINATION TYPE: CT chest wo con DATE OF EXAM: 03/01/2019 COMPARISON: Same day renal ultrasound and chest x-ray. HISTORY: Left pleural effusion, abnormal recent ultrasound index ray. CT DLP: 427.3 mGycm. Automated Exposure Control for Dose Reduction was Utilized. TECHNIQUE: CT scan of the thorax is performed without IV contrast. FINDINGS: LUNGS: There are small to moderate size left greater than right pleural effusions with associated com pressive atelectasis in the left lung base. There is additional consolidation with air bronchograms l eft mid lung axial image 27. There is right-sided volume loss with mediastinal shift. No pneumothorax is seen bilaterally. MEDIASTINUM: Lack of IV contrast is noted to limit evaluation for mediastinal and especially hilar ad enopathy. There are partially calcified prominent right hilar and subcarinal lymph nodes. No cardio megaly is seen. There is moderate to borderline-enlarged size pericardial effusion measuring up to 2. 3 cm in thickness right lateral aspect axial image 38 OTHER: [id number] multilevel spurring in the thoracic spine is present. IMPRESSION: Moderate to large size pericardial effusion. Small to moderate size left greater than rig ht pleural effusions with associated left basilar atelectasis. Additional focus of left mid lung cons olidation. Right-sided volume loss is present of uncertain etiology.
[2019-03-01] MEDS: DEXTROSE 5% IN WATER 1,000 ML with SODIUM BICARB (1 MEQ/ML) 150 ML IV SCH ×2 (10:00→20:03)
[2019-03-01 10:13] LABS: Calcium 8.3 mg/dL (8.4-10.2)
--- NOTE | 2019-03-01 10:35 | ECHOF ---
Referral Reason:echocardiogram, CHF MEASUREMENTS -------- HEIGHT: 180.3 cm WEIGHT: 93.4 kg BP: 146/81 RVIDd: 3.0 cm (< 3.3) IVSd: 1.4 cm (0.6 - 1.1) LVIDd: 4.4 cm (3.9 - 5.3) LVPWd: 1.5 cm (0.6 - 1.1) IVSs: 2.2 cm LVIDs: 2.5 cm LVPWs: 1.8 cm LA Diam: 3.5 cm (2.7 - 3.8) LAESV Index (A-L): 28.82 ml/m Ao Diam: 3.4 cm (2.0 - 3.7) AV Cusp: 2.2 cm (1.5 - 2.6) MV EXCURSION: 12.495 mm (> 18.000) MV EF SLOPE: 41 mm/s (70 - 150) EPSS: 0.2 cm MV E Inder: 0.67 m/s MV DecT: 388 ms MV A Inder: 0.94 m/s MV E/A Ratio: 0.71 AV maxP.74 mmHg AV meanP.63 mmHg FINDINGS -------- Sinus rhythm. This was a technically good study. The left ventricular size is normal. There is moderate concentric left ventricular hypertrophy. L eft ventricular systolic function is hyperdynamic with an estimated EF of >70%. The right ventricle is normal in size. LA is midly dilated 29-33ml/m2. The right atrium is normal in size. Interatrial and interventricular septum intact. There is mild aortic valve sclerosis. There is mild aortic stenosis present. Peak/mean gradient a cross the Aortic Valve is 30.74mmHg / 15.63mmHg. The mitral valve is normal. The tricuspid valve appears structurally normal. There is no pulmonic regurgitation present. The aortic root size is normal. There is a moderate, generalized pericardial effusion present. Large Pleural Effusion. CONCLUSIONS -------- 1. Sinus rhythm. 2. This was a technically good study. 3. The left ventricular size is normal. 4. There is moderate concentric left ventricular hypertrophy. 5. Left ventricular systolic function is hyperdynamic with an estimated EF of >70%. 6. The right ventricle is normal in size. 7. LA is midly dilated 29-33ml/m2. 8. The right atrium is normal in size. 9. Interatrial and interventricular septum intact. 10. There is mild aortic valve sclerosis. 11. There is mild aortic stenosis present. 12. Peak/mean gradient across the Aortic Valve is 30.74mmHg / 15.63mmHg. 13. The mitral valve is normal. 14. The tricuspid valve appears structurally normal. 15. There is no pulmonic regurgitation present. 16. The aortic root size is normal. 17. There is a moderate, generalized pericardial effusion present. 18. Large Pleural Effusion. CHASER APPRENTICE: Lexis Pérez RDCS
[2019-03-01 10:40] LABS: Appearance,Urine Turbid (Clear); Bacteria,Urine Moderate /hpf; Bilirubin,Urine Negative (Negative); Blood,Urine Moderate (Negative); Color,Urine Light Red; Glucose,Urine (UA) Negative (Negative); Ketones,Urine Negative (Negative); Leukocyte Esterase,Urine Large (Negative); Nitrite,Urine Negative (Negative); PH, Urine 5.5 (5.0-8.0); Protein,Urine 2+ (Negative); RBC,Urine >182 /hpf (0-5); Specific Gravity,Urine 1.016 (1.001-1.035); Squamous Epithelial Cell,Urine 5 /hpf (0-4); Urobilinogen,Urine <2.0 mg/dL (<2.0); WBC,Urine >182 /hpf (0-5)
--- NOTE | 2019-03-01 11:20 | HP ---
HISTORY AND PHYSICAL Weakness, malaise, nausea and vomiting. HISTORY OF PRESENT ILLNESS: This is the first known admission for this 73-year-old male. He is followed for history of hypertension, hyperlipidemia, and CA of the prostate. He was admitted recently complaining of some congestion and shortness of breath and it was thought this was related more likely to bronchitis, but he was worked up for possible congestive heart failure. He had no fever, chills, cough, hemoptysis, sputum production, etc. However, a chest x-ray revealed a large left pleural effusion. He was brought back in and was to be set up for CT of the chest. He came to the emergency room at night because of increasing shortness of breath, nausea and vomiting. There he was found to be in acute renal failure. He had no history of renal disease, flank pain, fever, chills, hematuria, dysuria, etc. The only abnormality was his history of prostate cancer without known sequelae. He is a very poor historian. REVIEW OF SYSTEMS: He denies any headaches, change in vision hearing, chest pain, sputum production, pleurisy, orthopnea, PND, abdominal pain, hematemesis, melena, hematochezia, jaundice, hematuria, etc. Past medical history, family history, personal and social history reveal that he cannot take beta-blockers, GILMAR inhibitors, or penicillin. He is currently on vitamin D, amlodipine 10 mg once a day, potassium 20 mEq twice a day, metolazone 10 mg once a day, atorvastatin 40, hydralazine 100 mg twice a day, metoprolol 100 mg once a day and aspirin. He used to smoke, but does not any longer. He has had a history of abusing alcohol. PHYSICAL EXAM: Blood pressure 130/82 with a pulse of 89, respirations of 35, he is afebrile. GENERAL: He appeared to be slightly dehydrated. Skin color is normal and skin is very dry. Head, ears, eyes, nose, mouth, and throat were normal except for mucous membranes. Neck veins are not distended. The chest is clear and the cardiac exam demonstrates sinus rhythm and no murmurs or extra sounds. The abdomen was slightly distended. There are no masses or visceromegaly. Extremities are normal. Neurologically, he is intact. IMPRESSION: 1. Acute renal failure. 2. Left pleural effusion. 3. History of hypertension. 4. History of carcinoma of the prostate. PLAN: 1. Bed rest. 2. IV fluids. 3. Ultrasound of the kidneys. 4. BNP. 5. Consult with Nephrology. 6. CT of the chest. RUDY / ROBERT: [id number] /
[2019-03-01 11:55] LABS: Glucose,Whole Blood 152 mg/dL (75-99)
[2019-03-01] MEDS: DORZOLAMIDE HCL 2% DROPS 10 ML BTL BOTH EYES SCH ×2 (13:01→20:03)
--- NOTE | 2019-03-01 14:20 | P.CNPUL ---
History of Present Illness Consult date: 03/01/19 Requesting physician: Drew Ortiz Reason for consult: pleural effusion, other Chief complaint: Left greater than right pleural effusions, moderate pericardial effusion History of present illness: This 73-year-old -Tong[place] male patient of Dr. Ortiz, who presented to the emergency department on 03/01/2019 with complaints of left shoulder pain, not feeling well, decreased appetite, nausea vomiting. Apparently there was a recent outpatient chest x-ray done showing a large-sized left pleural effusion. Patient was taking Aleve for his left shoulder pain, denied any injury, or trauma to his left shoulder. Denied any chest pain, cough or congestion, his any abdominal pain, although does admit to being nauseous. Passing normal bowel movements. Patient has a history of hypertension, hyperlipidemia, chronic kidney disease stage III, slight creatinine of 1.4 mg/dL, 2 of colon cancer, glaucoma, BPH, history of previous nicotine dependence. No history of drug abuse or alcohol abuse. Chest x-ray was completed showing moderate sized left pleural effusion, adjacent atelectasis, and minor right basilar opacity with atelectasis/infiltrate. He megaly and mild pulmonary vascular congestion. EKG shows sinus rhythm with PAC. CT of the chest was completed showing moderate to large size pericardial effusion, and small to moderate size left greater than right pleural effusions with associated left basilar atelectasis. There is volume loss in the right side of unknown etiology. Echocardiogram was completed showing moderate concentric left ventricular hypertrophy with hyperdynamic left ventricle systolic function with an EF of greater than 70%, mild aortic stenosis , no pulmonary hypertension, and does moderate generalized pericardial effusion. Blood work showed significant increase in patient's creatinine from his baseline, at 18.4, with BUN of 133, serum sodium is 133, potassium is 4.7, chloride was 95, CO2 was 16, troponin was negative, proBNP was at 7940, liver enzymes were within normal limits, white blood cell count of 14.7, hemoglobin of 7.8, platelet count was 537, coordination profile was within normal limits, urinalysis showed 2+ protein, large amount of leuk trase, large amount of PRBCs and large amount of WBCs with many WBC clumps and urine bacteria. Patient is currently sitting up in the chair, in no acute distress, he denies any shortness of breath, room air pulse ox is 92%, denies any chest pain, he is afebrile, respirations are nonlabored, lung sounds reveal diminished breath sounds on the left, patient is having emergent temporary hemodialysis catheter inserted sometime this afternoon with urgent hemodialysis. Review of Systems All systems: negative Constitutional: Reports anorexia, Reports malaise, Reports poor appetite, Reports weakness, Denies chills, Denies fever Eyes: denies blurred vision, denies pain Ears, nose, mouth and throat: Denies headache, Denies sore throat Cardiovascular: Denies chest pain, Denies shortness of breath Respiratory: Reports dyspnea, Denies cough Gastrointestinal: Denies abdominal pain, Denies diarrhea, Denies nausea, Denies vomiting Musculoskeletal: Denies myalgias Musculoskeletal: left: shoulder pain Integumentary: Denies pruritus, Denies rash Neurological: Reports weakness, Denies numbness Psychiatric: Denies anxiety, Denies depression Endocrine: Denies fatigue, Denies weight change Past Medical History Past Medical History: Cancer, Eye Disorder, Hyperlipidemia, Hypertension, Prostate Disorder Additional Past Medical History / Comment(s): GLAUCOMA BILAT EYES. HX COLON CA NCER History of Any Multi-Drug Resistant Organisms: None Reported Additional Past Surgical History / Comment(s): COLONOSCOPY Past Anesthesia/Blood Transfusion Reactions: No Reported Reaction Smoking Status: Former smoker - Past Family History Mother Family Medical History: No Reported History Medications and Allergies Home Medications Medication Instructions Recorded Confirmed Type Atorvastatin [Lipitor] 40 mg PO HS 10/24/17 03/01/19 History Dorzolamide 2% [Trusopt 2%] 1 drop BOTH EYES BID 10/24/17 03/01/19 History Latanoprost Ophth [Xalatan 0.005%] 1 drop BOTH EYES HS 10/24/17 03/01/19 History Metolazone [Zaroxolyn] 10 mg PO DAILY 10/24/17 03/01/19 History Metoprolol Tartrate [Lopressor] 100 mg PO HS 10/24/17 03/01/19 History hydrALAZINE HCL [Apresoline] 100 mg PO BID 10/24/17 03/01/19 History Aspirin 81 mg PO DAILY 03/01/19 03/01/19 History Ergocalciferol (Vitamin D2) 50,000 unit PO Q7D 03/01/19 03/01/19 History [Drisdol] Potassium Chloride ER [K-Dur 20] 20 meq PO DAILY 03/01/19 03/01/19 History amLODIPine BESYLATE 10 mg PO DAILY 03/01/19 03/01/19 History Allergies Allergy/AdvReac Type Severity Reaction Status Date / Time GILMAR Inhibitors Allergy Anaphylaxis Verified 03/01/19 09:52 Penicillins Allergy Anaphylaxis Verified 03/01/19 09:52 Milk Containing Products AdvReac Abdominal Verified 03/01/19 09:52 Pain Physical Exam Vitals: Vital Signs Temp Pulse Pulse Resp BP BP Pulse Ox 03/01/19 12:00 97.6 F 77 18 140/73 92 L 03/01/19 08:00 98.2 F 80 18 159/77 91 L 03/01/19 05:41 97.8 F 78 18 146/81 96 03/01/19 05:30 97.8 F 03/01/19 05:10 76 18 146/87 96 03/01/19 05:00 74 20 150/82 03/01/19 04:50 75 20 150/82 95 03/01/19 04:10 75 17 152/80 95 03/01/19 03:40 78 12 128/74 97 03/01/19 03:30 77 16 121/77 95 03/01/19 03:10 72 20 121/77 95 03/01/19 02:40 74 18 130/74 95 03/01/19 02:10 75 20 111/55 95 03/01/19 01:40 80 20 95 03/01/19 01:33 97.9 F 80 18 141/64 96 03/01/19 01:31 96 Intake and Output 02/28/19 03/01/19 03/01/19 22:59 06:59 14:59 Intake Total 600 Output Total 20 Balance -20 600 Intake: Oral 600 Output: Urine 20 Uretheral (Zapata) 20 Other: Voiding Method Indwelling Catheter Weight 93.5 kg GENERAL EXAM: Alert, 73-year-old -Tongan male, sitting up in a recliner, in no apparent distress HEAD: Normocephalic/atraumatic. EYES: Normal reaction of pupils, equal size. Conjunctiva pink, sclera white. NOSE: Clear with pink turbinates. THROAT: No erythema or exudates. NECK: No masses, no JVD, no thyroid enlargement, no adenopathy. CHEST: No chest wall deformity. Symmetrical expansion. LUNGS: Breath sounds at the bases, left greater than right, with dullness to percussion, on the left CVS: Regular rate and rhythm, normal S1 and S2, no gallops, no murmurs, no rubs. Distant sounds ABDOMEN: Soft, nontender. No hepatosplenomegaly, normal bowel sounds, no guarding or rigidity. EXTREMITIES: No clubbing, no edema, no cyanosis, 2+ pulses and upper and lower extremities. MUSCULOSKELETAL: Muscle strength and tone normal. SPINE: No scoliosis or deformity SKIN: No rashes CENTRAL NERVOUS SYSTEM: Alert and oriented -3. No focal deficits, tone is normal in all 4 extremities. PSYCHIATRIC: Alert and oriented -3. Appropriate affect. Intact judgment and insight. Results - Laboratory Findings CBC and BMP: 03/01/19 02:30 03/01/19 09:38 PT/INR, D-dimer PT 10.8 sec (9.0-12.0) 03/01/19 02:30 INR 1.0 (<1.2) 03/01/19 02:30 Abnormal lab findings: Abnormal Labs 03/01/19 03/01/19 03/01/19 02:30 02:30 06:46 WBC 14.7 H RBC 2.76 L Hgb 7.8 L Hct 23.4 L Plt Count 537 H Neutrophils # 13.7 H Lymphocytes # 0.4 L Sodium 133 L Chloride 95 L Carbon Dioxide 16 L BUN 133 H* Creatinine 18.48 H* Glucose 147 H POC Glucose (mg/dL) 160 H Calcium 8.3 L Total Protein 6.2 L Urine Protein Urine Blood Ur Leukocyte Esterase Urine RBC Urine WBC Urine WBC Clumps Ur Squamous Epith Cells Urine Bacteria 03/01/19 03/01/19 03/01/19 09:38 10:26 11:53 WBC RBC Hgb Hct Plt Count Neutrophils # Lymphocytes # Sodium 135 L Chloride Carbon Dioxide 15 L BUN 135 H* Creatinine 18.37 H* Glucose 127 H POC Glucose (mg/dL) 152 H Calcium 8.3 L Total Protein Urine Protein 2+ H Urine Blood Moderate H Ur Leukocyte Esterase Large H Urine RBC >182 H Urine WBC >182 H Urine WBC Clumps Many H Ur Squamous Epith Cells 5 H Urine Bacteria Moderate H - Diagnostic Findings Chest x-ray: report reviewed, image reviewed CT scan - chest: report reviewed, image reviewed Additional studies: Results of the renal ultrasound, EKG and echocardiogram reviewed Assessment and Plan Plan: Assessment: #1. Bilateral pleural effusions, left greater than right #2. Moderate to large uremic pericardial effusion #3. Acute kidney injury, renal ultrasound did not show evidence of hydronephrosis, this may be related to ATN, NSAID use and diuretics #4. Chronic kidney disease stage III #5. Acute urinary tract infection #6. History of prostate cancer, adenocarcinoma of the prostate, patient underwent robotic-assisted laparoscopic prostatectomy with bilateral pelvic lymphadenectomy and primary closure of rectal laceration in October 2017 #7. Hypertension #8. Hyperlipidemia #9. History of glaucoma #10. History of colon cancer Plan: Obtain ultrasound of the chest, patient is undergoing hemodialysis sometime this afternoon, no urgency to proceed with left-sided thoracentesis right now, patient is in no acute distress, on room air. Will review results of the ultrasound. Plan was discussed with the patient, and patient is agreeable to it. I performed a history & physical examination of the patient and discussed their management with my nurse practitioner, Nia Rojas. I reviewed the nurse practitioner's note and agree with the documented findings and plan of care. Lung sounds are positive for diminished breath sounds. The findings and the impression was discussed with the patient. I attest to the documentation by the nurse practitioner. Time with Patient: Greater than 30
--- NOTE | 2019-03-01 15:19 | US ---
EXAMINATION TYPE: US chest DATE OF EXAM: 03/01/2019 COMPARISON: Chest CT earlier today CLINICAL HISTORY: Markings for thoracentesis by pulmonary staff. Shortness of breath and pleural effu sions. TECHNIQUE: Targeted ultrasound of the posterior lower bilateral hemithoraces EXAM MEASUREMENTS: Right Pleural Effusion pocket size: 6.2 cm Right skin surface to fluid distance: 4.3 cm lung seen within pocket Left Pleural Effusion pocket size: 7.0 cm Left skin surface to fluid distance: 4.4 cm Right side marked for possible thoracentesis outside the dept. Left side marked for possible thoracentesis outside the dept. Pulmonologists are able to review the images in the patient?s EMR. Small to moderate size left greater than right pleural effusions are redemonstrated as seen on recent CT. IMPRESSIONS: As above.
[2019-03-01 16:33] LABS: Iron Saturation 11.33 (15.00-50.00)
[2019-03-01 16:49] LABS: Glucose,Whole Blood 167 mg/dL (75-99)
[2019-03-01] MEDS ORDERED: traMADol 50 MG TAB PO PRN (17:01)
--- NOTE | 2019-03-01 17:43 | P.GSCN ---
History of Present Illness History of present illness: 73-year-old gentleman patient came with history of weakness nausea and vomiting patient came with high BUN/creatinine I was consulted for placement of a temporary dialysis catheter. Patient history of colon cancer hypertension prostate enlargement. Patient seen by nephrology and recommended placement of the catheter On examination neck is supple no bruit appreciated Chest few crackles the lung bases first and second sound present Abdomen soft nontender Vascular femorals are 1+ patient has a marked swelling of the both lower extremity Plan is placement of a dialysis catheter temporary risk and complication discussed thank you Past Medical History Past Medical History: Cancer, Eye Disorder, Hyperlipidemia, Hypertension, Prostate Disorder Additional Past Medical History / Comment(s): GLAUCOMA BILAT EYES. HX COLON CANCER History of Any Multi-Drug Resistant Organisms: None Reported Additional Past Surgical History / Comment(s): COLONOSCOPY Past Anesthesia/Blood Transfusion Reactions: No Reported Reaction Smoking Status: Former smoker - Past Family History Mother Family Medical History: No Reported History Medications and Allergies Home Medications Medication Instructions Recorded Confirmed Type Atorvastatin [Lipitor] 40 mg PO HS 10/24/17 03/01/19 History Dorzolamide 2% [Trusopt 2%] 1 drop BOTH EYES BID 10/24/17 03/01/19 History Latanoprost Ophth [Xalatan 0.005%] 1 drop BOTH EYES HS 10/24/17 03/01/19 History Metolazone [Zaroxolyn] 10 mg PO DAILY 10/24/17 03/01/19 History Metoprolol Tartrate [Lopressor] 100 mg PO HS 10/24/17 03/01/19 History hydrALAZINE HCL [Apresoline] 100 mg PO BID 10/24/17 03/01/19 History Aspirin 81 mg PO DAILY 03/01/19 03/01/19 History Ergocalciferol (Vitamin D2) 50,000 unit PO Q7D 03/01/19 03/01/19 History [Drisdol] Potassium Chloride ER [K-Dur 20] 20 meq PO DAILY 03/01/19 03/01/19 History amLODIPine BESYLATE 10 mg PO DAILY 03/01/19 03/01/19 History Allergies Allergy/AdvReac Type Severity Reaction Status Date / Time GILMAR Inhibitors Allergy Anaphylaxis Verified 03/01/19 09:52 Penicillins Allergy Anaphylaxis Verified 03/01/19 09:52 Milk Containing Products AdvReac Abdominal Verified 03/01/19 09:52 Pain Surgical - Exam Vital Signs Pulse Ox 96 03/01/19 01:31 Results - Labs 03/01/19 02:30 03/01/19 09:38 Abnormal Lab Results - Last 24 Hours (Table) 03/01/19 03/01/19 03/01/19 Range/Units 02:30 02:30 06:46 WBC 14.7 H (3.8-10.6) k/uL RBC 2.76 L (4.30-5.90) m/uL Hgb 7.8 L (13.0-17.5) gm/dL Hct 23.4 L (39.0-53.0) % Plt Count 537 H (150-450) k/uL Neutrophils # 13.7 H (1.3-7.7) k/uL Lymphocytes # 0.4 L (1.0-4.8) k/uL Sodium 133 L (137-145) mmol/L Chloride 95 L (98-107) mmol/L Carbon Dioxide 16 L (22-30) mmol/L BUN 133 H* (9-20) mg/dL Creatinine 18.48 H* (0.66-1.25) mg/dL Glucose 147 H (74-99) mg/dL POC Glucose (mg/dL) 160 H (75-99) mg/dL Calcium 8.3 L (8.4-10.2) mg/dL Iron (65-175) ug/dL TIBC (228-460) ug/dL Iron Saturation (15.00-50.00) Total Protein 6.2 L (6.3-8.2) g/dL Urine Protein (Negative) Urine Blood (Negative) Ur Leukocyte Esterase (Negative) Urine RBC (0-5) /hpf Urine WBC (0-5) /hpf Urine WBC Clumps (None) /hpf Ur Squamous Epith Cells (0-4) /hpf Urine Bacteria (None) /hpf 03/01/19 03/01/19 03/01/19 Range/Units 09:38 09:38 10:26 WBC (3.8-10.6) k/uL RBC (4.30-5.90) m/uL Hgb (13.0-17.5) gm/dL Hct (39.0-53.0) % Plt Count (150-450) k/uL Neutrophils # (1.3-7.7) k/uL Lymphocytes # (1.0-4.8) k/uL Sodium 135 L (137-145) mmol/L Chloride (98-107) mmol/L Carbon Dioxide 15 L (22-30) mmol/L BUN 135 H* (9-20) mg/dL Creatinine 18.37 H* (0.66-1.25) mg/dL Glucose 127 H (74-99) mg/dL POC Glucose (mg/dL) (75-99) mg/dL Calcium 8.3 L (8.4-10.2) mg/dL Iron 23 L (65-175) ug/dL TIBC 203 L (228-460) ug/dL Iron Saturation 11.33 L (15.00-50.00) Total Protein (6.3-8.2) g/dL Urine Protein 2+ H (Negative) Urine Blood Moderate H (Negative) Ur Leukocyte Esterase Large H (Negative) Urine RBC >182 H (0-5) /hpf Urine WBC >182 H (0-5) /hpf Urine WBC Clumps Many H (None) /hpf Ur Squamous Epith Cells 5 H (0-4) /hpf Urine Bacteria Moderate H (None) /hpf 03/01/19 03/01/19 Range/Units 11:53 16:46 WBC (3.8-10.6) k/uL RBC (4.30-5.90) m/uL Hgb (13.0-17.5) gm/dL Hct (39.0-53.0) % Plt Count (150-450) k/uL Neutrophils # (1.3-7.7) k/uL Lymphocytes # (1.0-4.8) k/uL Sodium (137-145) mmol/L Chloride (98-107) mmol/L Carbon Dioxide (22-30) mmol/L BUN (9-20) mg/dL Creatinine (0.66-1.25) mg/dL Glucose (74-99) mg/dL POC Glucose (mg/dL) 152 H 167 H (75-99) mg/dL Calcium (8.4-10.2) mg/dL Iron (65-175) ug/dL TIBC (228-460) ug/dL Iron Saturation (15.00-50.00) Total Protein (6.3-8.2) g/dL Urine Protein (Negative) Urine Blood (Negative) Ur Leukocyte Esterase (Negative) Urine RBC (0-5) /hpf Urine WBC (0-5) /hpf Urine WBC Clumps (None) /hpf Ur Squamous Epith Cells (0-4) /hpf Urine Bacteria (None) /hpf Microbiology - Last 24 Hours (Table) 03/01/19 13:10 Urine Culture - Preliminary Urine,Catheterized Diabetes panel 03/01/19 03/01/19 Range/Units 02:30 09:38 Sodium 133 L 135 L (137-145) mmol/L Potassium 4.7 5.0 (3.5-5.1) mmol/L Chloride 95 L 98 (98-107) mmol/L Carbon Dioxide 16 L 15 L (22-30) mmol/L BUN 133 H* 135 H* (9-20) mg/dL Creatinine 18.48 H* 18.37 H* (0.66-1.25) mg/dL Glucose 147 H 127 H (74-99) mg/dL Calcium 8.3 L 8.3 L (8.4-10.2) mg/dL AST 31 (17-59) U/L ALT 23 (21-72) U/L Alkaline Phosphatase 96 (38-126) U/L Total Protein 6.2 L (6.3-8.2) g/dL Albumin 3.5 (3.5-5.0) g/dL Calcium panel 03/01/19 03/01/19 Range/Units 02:30 09:38 Calcium 8.3 L 8.3 L (8.4-10.2) mg/dL Albumin 3.5 (3.5-5.0) g/dL Pituitary panel 03/01/19 03/01/19 Range/Units 02:30 09:38 Sodium 133 L 135 L (137-145) mmol/L Potassium 4.7 5.0 (3.5-5.1) mmol/L Chloride 95 L 98 (98-107) mmol/L Carbon Dioxide 16 L 15 L (22-30) mmol/L BUN 133 H* 135 H* (9-20) mg/dL Creatinine 18.48 H* 18.37 H* (0.66-1.25) mg/dL Glucose 147 H 127 H (74-99) mg/dL Calcium 8.3 L 8.3 L (8.4-10.2) mg/dL Adrenal panel 03/01/19 03/01/19 Range/Units 02:30 09:38 Sodium 133 L 135 L (137-145) mmol/L Potassium 4.7 5.0 (3.5-5.1) mmol/L Chloride 95 L 98 (98-107) mmol/L Carbon Dioxide 16 L 15 L (22-30) mmol/L BUN 133 H* 135 H* (9-20) mg/dL Creatinine 18.48 H* 18.37 H* (0.66-1.25) mg/dL Glucose 147 H 127 H (74-99) mg/dL Calcium 8.3 L 8.3 L (8.4-10.2) mg/dL Total Bilirubin 0.6 (0.2-1.3) mg/dL AST 31 (17-59) U/L ALT 23 (21-72) U/L Alkaline Phosphatase 96 (38-126) U/L Total Protein 6.2 L (6.3-8.2) g/dL Albumin 3.5 (3.5-5.0) g/dL
[2019-03-01 19:14] LABS: ALT 27 U/L (21-72); AST 16 U/L (17-59); Albumin 3.6 g/dL (3.5-5.0); Alkaline Phosphatase 88 U/L (38-126); Anion Gap 22 mmol/L; Calcium 8.3 mg/dL (8.4-10.2); Carbon Dioxide 19 mmol/L (22-30); Chloride 95 mmol/L (98-107); Glucose 161 mg/dL (74-99); Potassium 4.4 mmol/L (3.5-5.1); Sodium 136 mmol/L (137-145); Total Bilirubin 0.5 mg/dL (0.2-1.3); Total Protein 6.3 g/dL (6.3-8.2)
[2019-03-01 19:34] LABS: African American GFR (CKD) 3 (>60 ml/min/1.73 sqM)
[2019-03-01] MEDS: LATANOPROST 0.005% OPHTH DROPS 2.5 ML BTL BOTH EYES SCH (20:02)
[2019-03-02] MEDS: DEXTROSE 5% IN WATER 1,000 ML with SODIUM BICARB (1 MEQ/ML) 150 ML IV SCH ×2 (04:43→09:01)
[2019-03-02 06:43] LABS: Basophils % (A) 0 %; Eosinophils % (A) 0 %; HCT 24.5 % (39.0-53.0); HGB 7.9 gm/dL (13.0-17.5); Lymphocytes # (A) 0.5 k/uL (1.0-4.8); Lymphocytes % (A) 4 %; MCH 27.5 pg (25.0-35.0); MCHC 32.1 g/dL (31.0-37.0); MCV 85.9 fL (80.0-100.0); Mean Platelet Volume 6.7; Monocytes # (A) 0.4 k/uL (0-1.0); Monocytes % (A) 4 %; Neutrophils % (A) 91 %; Platelet Count 546 k/uL (150-450); RBC 2.86 m/uL (4.30-5.90); RDW 14.9 % (11.5-15.5); WBC 12.1 k/uL (3.8-10.6)
[2019-03-02 07:30] LABS: Albumin 3.2 g/dL (3.5-5.0); Magnesium 1.8 mg/dL (1.6-2.3); Potassium 4.7 mmol/L (3.5-5.1); Total Bilirubin 0.5 mg/dL (0.2-1.3); Total Protein 5.9 g/dL (6.3-8.2)
[2019-03-02 07:45] LABS: Phosphorus 9.9 mg/dL (2.5-4.5)
[2019-03-02] MEDS ORDERED: fentaNYL (PF) 50 MCG/ML 2 ML AMP IV ONE (08:10)
[2019-03-02] MEDS ORDERED: LIDOCAINE 1% INJ 10MG/ML (20 ML MDV) SQ ONE (08:13)
--- NOTE | 2019-03-02 08:35 | P.PCN ---
Description of Procedure: Preoperative diagnosis acute chronic renal failure Postoperative same Procedure placement of 30 mL of dialysis catheter ultrasound-guided right femoral approach sedation time 15 minutes patient was brought to the Web Programmer right groin was prepped and draped applied usual sterile manner 1% lidocaine were infiltrated right groin. Ultrasound-guided micropuncture introducer right femoral vein and micropuncture guidewire was passed. After that we placed a 4- Turkmen dilator passed a guidewire checking under fluoroscopy dilator was ad vanced on the top of the guidewire. Then 30 mL of dialysis catheter advanced on the top of the guidewire flushed with heparin saline and Hep-Lock catheter was secured with 3-0 nylon dressing applied patient tolerated the procedure well
--- NOTE | 2019-03-02 08:40 | IR ---
EXAMINATION TYPE: IR cvc insert >=5 years DATE OF EXAM: 03/02/2019 CLINICAL HISTORY: Failed dialysis. TECHNIQUE: Fluoroscopy. COMPARISON: None. FINDINGS: Fluoroscopic guidance was provided during femoral dialysis catheter insertion procedure pe rformed by Dr. Gerard. A total of 0.2 minutes of fluoroscopic time was utilized during the procedur e and 2 spot images was acquired. Images show guidewire right abdomen presumed in IVC. IMPRESSION: As Above.
[2019-03-02] MEDS: DORZOLAMIDE HCL 2% DROPS 10 ML BTL BOTH EYES SCH ×2 (09:01→20:59)
--- NOTE | 2019-03-02 11:19 | P.PN ---
Subjective Progress Note Date: 03/02/19 Principal diagnosis: Left shoulder pain, shortness of breath, weakness This 73-year-old -[place] male patient of Dr. Ortiz, who presented to the emergency department on 03/01/2019 with complaints of left shoulder pain, not feeling well, decreased appetite, nausea vomiting. Apparently there was a recent outpatient chest x-ray done showing a large-sized left pleural effusion. Patient was taking Aleve for his left shoulder pain, denied any injury, or trauma to his left shoulder. Denied any chest pain, cough or congestion, his any abdominal pain, although does admit to being nauseous. Passing normal bowel movements. Patient has a history of hypertension, hyperlipidemia, chronic kidney disease stage III, slight creatinine of 1.4 mg/dL, 2 of colon cancer, gla ucoma, BPH, history of previous nicotine dependence. No history of drug abuse or alcohol abuse. Chest x-ray was completed showing moderate sized left pleural effusion, adjacent atelectasis, and minor right basilar opacity with atelectasis/infiltrate. He megaly and mild pulmonary vascular congestion. EKG shows sinus rhythm with PAC. CT of the chest was completed showing moderate to large size pericardial effusion, and small to moderate size left greater than right pleural effusions with associated left basilar atelectasis. There is volume loss in the right side of unknown etiology. Echocardiogram was completed showing moderate concentric left ventricular hypertrophy with hyperdynamic left ventricle systolic function with an EF of greater than 70%, mild aortic stenosis, no pulmonary hypertension, and does moderate generalized pericardial effusion. Blood work showed significant increase in patient's creatinine from his baseline, at 18.4, with BUN of 133, serum sodium is 133, potassium is 4.7, chloride was 95, CO2 was 16, troponin was negative, proBNP was at 7940, liver enzymes were within normal limits, white blood cell count of 14.7, hemoglobin of 7.8, platelet count was 537, coordination profile was within normal limits, urinalysis showed 2+ protein, large amount of leuk trase, large amount of PRBCs and large amount of WBCs with many WBC clumps and urine bacteria. Patient is currently sitting up in the chair, in no acute distress, he denies any shortness of breath, room air pulse ox is 92%, denies any chest pain, he is afebrile, respirations are nonlabored, lung sounds reveal diminished breath sounds on the left, patient is having emergent temporary hemodialysis catheter inserted sometime this afternoon with urgent hemodialysis. The patient is seen today 03/02/2018 in follow-up on the selective care unit. He did not receive dialysis yesterday. He did go down for a right femoral dialysis catheter placement this morning. He is to receive dialysis today. He is awake and alert. Resting fairly comfortably in bed. Maintaining O2 saturations in the 90s on room air. He's had a low-grade temperature. Hypertensive. Urine culture pending. White count 12.1. Hemoglobin 7.9. BUN 137. Creatinine 18.33. Objective - Vital Signs Vital signs: Vital Signs Temp 98.2 F 03/02/19 11:01 Pulse 91 03/02/19 11:01 Resp 18 03/02/19 11:01 BP 151/78 03/02/19 11:01 Pulse Ox 94 L 03/02/19 11:01 Intake & Output 03/01/19 03/02/19 03/02/19 18:59 06:59 18:59 Intake Total 1800 Output Total 190 300 Balance 1610 -300 Weight 101.8 kg Intake: IV 1200 Dextrose 5% in Water 1, 1200 000 ml @ 100 mls/hr IV . [id number] BRITTON with Sodium Bicarb (1 Meq/ml) 150 ml Rx#:[id number] Oral 600 Output: Urine 190 300 Other: Voiding Method Indwelling Catheter Indwelling Catheter Indwelling Catheter - Exam GENERAL EXAM: Alert, 73-year-old -[place] male, resting comfortably in bed. On room air. HEAD: Normocephalic/atraumatic. EYES: Normal reaction of pupils, equal size. Conjunctiva pink, sclera white. NOSE: Clear with pink turbinates. THROAT: No erythema or exudates. NECK: No masses, no JVD, no thyroid enlargement, no adenopathy. CHEST: No chest wall deformity. Symmetrical expansion. LUNGS: Diminished breath sounds at the bases, left greater than right, basilar crackles CVS: Regular rate and rhythm, normal S1 and S2, no gallops, no murmurs, no rubs. Distant sounds ABDOMEN: Soft, nontender. No hepatosplenomegaly, normal bowel sounds, no guarding or rigidity. EXTREMITIES: Right femoral hemodialysis catheter placed. No clubbing, no edema, no cyanosis, 2+ pulses and upper and lower extremities. MUSCULOSKELETAL: Muscle strength and tone normal. SPINE: No scoliosis or deformity SKIN: No rashes CENTRAL NERVOUS SYSTEM: No focal deficits, tone is normal in all 4 extremities. PSYCHIATRIC: Alert and oriented -3. Appropriate affect. Intact judgment and insight. - Labs CBC & Chem 7: 03/02/19 06:03 03/02/19 06:03 Labs: Abnormal Lab Results - Last 24 Hours (Table) 03/01/19 03/01/19 03/01/19 Range/Units 09:38 11:53 16:46 WBC (3.8-10.6) k/uL RBC (4.30-5.90) m/uL Hgb (13.0-17.5) gm/dL Hct (39.0-53.0) % Plt Count (150-450) k/uL Neutrophils # (1.3-7.7) k/uL Lymphocytes # (1.0-4.8) k/uL Sodium (137-145) mmol/L Chloride (98-107) mmol/L Carbon Dioxide (22-30) mmol/L BUN (9-20) mg/dL Creatinine (0.66-1.25) mg/dL Glucose (74-99) mg/dL POC Glucose (mg/dL) 152 H 167 H (75-99) mg/dL Calcium (8.4-10.2) mg/dL Phosphorus (2.5-4.5) mg/dL Iron 23 L (65-175) ug/dL TIBC 203 L (228-460) ug/dL Iron Saturation 11.33 L (15.00-50.00) AST (17-59) U/L Total Protein (6.3-8.2) g/dL Albumin (3.5-5.0) g/dL 03/01/19 03/02/19 03/02/19 Range/Units 18:38 06:03 06:03 WBC 12.1 H (3.8-10.6) k/uL RBC 2.86 L (4.30-5.90) m/uL Hgb 7.9 L (13.0-17.5) gm/dL Hct 24.5 L (39.0-53.0) % Plt Count 546 H (150-450) k/uL Neutrophils # 11.0 H (1.3-7.7) k/uL Lymphocytes # 0.5 L (1.0-4.8) k/uL Sodium 136 L 134 L (137-145) mmol/L Chloride 95 L 92 L (98-107) mmol/L Carbon Dioxide 19 L (22-30) mmol/L BUN 137 H* (9-20) mg/dL Creatinine 17.85 H* 18.33 H* (0.66-1.25) mg/dL Glucose 161 H 141 H (74-99) mg/dL POC Glucose (mg/dL) (75-99) mg/dL Calcium 8.3 L 8.0 L (8.4-10.2) mg/dL Phosphorus 9.9 H* (2.5-4.5) mg/dL Iron (65-175) ug/dL TIBC (228-460) ug/dL Iron Saturation (15.00-50.00) AST 16 L 16 L (17-59) U/L Total Protein 5.9 L (6.3-8.2) g/dL Albumin 3.2 L (3.5-5.0) g/dL Microbiology - Last 24 Hours (Table) 03/01/19 13:10 Urine Culture - Preliminary Urine,Catheterized Assessment and Plan Assessment: Assessment: #1. Bilateral pleural effusions, left greater than right #2. Moderate to large uremic pericardial effusion #3. Acute kidney injury, renal ultrasound did not show evidence of hydrone phrosis, this may be related to ATN, NSAID use and diuretics #4. Chronic kidney disease stage III #5. Acute urinary tract infection #6. History of prostate cancer, adenocarcinoma of the prostate, patient underwent robotic-assisted laparoscopic prostatectomy with bilateral pelvic lymphadenectomy and primary closure of rectal laceration in October 2017 #7. Hypertension #8. Hyperlipidemia #9. History of glaucoma #10. History of colon cancer Plan: The patient was seen and evaluated by Dr. Allen. A right femoral hemodialysis catheter was placed. He is currently receiving hemodialysis. The patient is currently on room air. We'll repeat a chest x-ray following dialysis. Would co nsider thoracentesis if needed. We will continue to follow and make further recommendations based on his clinical status. I, the cosigning physician, performed a history & physical examination of the patient. Lungs sounds bilateral crackles, diminished. Maintaining good O2 satur ations in the 90s on room air. I discussed the assessment and plan of care with my nurse practitioner, Delmis Sharp. I attest to the above note as dictated by her.
[2019-03-02] MEDS ORDERED: FUROSEMIDE 10 MG/ML 10 ML VIAL IV STA (12:09)
[2019-03-02] MEDS ORDERED: MIDODRINE 5 MG TAB PO STA (12:10)
[2019-03-02 12:14] LABS: Blood Urea Nitrogen >120 mg/dL (9-20)
[2019-03-02] MEDS: IPRATROPIUM-ALBUTEROL 3 ML NEB INHALATION SCH ×3 (12:14→21:30)
--- NOTE | 2019-03-02 12:19 | PN ---
PROGRESS NOTE DATE OF SERVICE: 03/02/2019 CHIEF COMPLAINT: Acute anuric renal failure. HISTORY OF PRESENT ILLNESS: This gentleman is fairly stable. Vital signs are normal. He is still a little lethargic. He is not vomiting and he is not having any pain. He was not dialyzed yesterday and he will be again today. He is slightly wheezy. He is making no urine. PHYSICAL EXAM: He is dry. Head, ears, eyes, nose, mouth, and throat are normal. Chest is clear. Cardiac exam is normal sinus rhythm. Abdomen is soft. Extremities: Normal. Catheter in the right groin. IMPRESSION: 1. Acute anuric renal failure. 2. Hypertension. 3. History of alcoholism. PLAN: 1. Updrafts. 2. Dialysis today. 3. Continue to follow with Renal. MMODL / IJN: [id number] /
[2019-03-02] MEDS: hydrALAZINE HCL 50 MG TAB PO SCH ×2 (12:31→21:01)
[2019-03-02] MEDS ORDERED: DEXTROSE 5% IN WATER 100 ML with AMIODARONE 150 MG IV ONE (12:31)
--- NOTE | 2019-03-02 12:47 | XR ---
EXAMINATION TYPE: XR chest 1V DATE OF EXAM: 03/02/2019 COMPARISON: 03/01/2019 INDICATION: Short of breath pleural effusions TECHNIQUE: Single frontal view of the chest is obtained. FINDINGS: The heart size is very prominent. The pulmonary vasculature is normal. There is a moderate left pleural effusion. Very minimal right pleural effusion is not excluded. IMPRESSION: 1. Marked cardiomegaly. 2. Moderate left pleural effusion, stable. 3. Minimal developing right pleural effusion may be present.
[2019-03-02] MEDS ORDERED: HEPARIN SODIUM,PORCINE 5,000 UNIT/ML 1 ML VIAL IV PRN (13:24)
[2019-03-02] MEDS ORDERED: HEPARIN SOD,PORK IN 0.45% NACL 25,000 UNIT in 0.45% NACL 1 250ML.BAG IV SCH (13:30)
[2019-03-02] MEDS ORDERED: AMIODARONE 360 MG in DEXTROSE 5% IN WATER 200 ML IV ONE ×2 (13:45)
--- NOTE | 2019-03-02 13:59 | P.PN ---
Subjective Progress Note Date: 03/02/19 Principal diagnosis: This is a 73-year-old male admitted with weakness and found to have severe acute kidney injury creatinine being 18. Currently is on dialysis. This is first d ialysis. He is somewhat tired and weak but arousable and answers questions and tries to follow commands Urine output has been minimal. The cause of his acute kidney injury is not clear. Urinalysis somewhat active. His baseline creatinine is 1.4 mg likely nephrosclerosis. He is known with hypertension and hyperlipidemia history of prostatism history of colon cancer and glaucoma His appetite is somewhat poor. He was short of breath is currently on oxygen and is comfortable during dialysis so for 1700 mL have been taken out and his vital signs are very stable Objective - Vital Signs Vital signs: Vital Signs Temp 98.2 F 03/02/19 11:01 Pulse 98 03/02/19 12:26 Resp 18 03/02/19 11:13 BP 151/78 03/02/19 11:01 Pulse Ox 94 L 03/02/19 11:01 Intake & Output 03/01/19 03/02/19 03/02/19 18:59 06:59 18:59 Intake Total 1800 Output Total 190 300 Balance 1610 -300 Weight 101.8 kg Intake: IV 1200 Dextrose 5% in Water 1, 1200 000 ml @ 100 mls/hr IV . [id number] BRITTON with Sodium Bicarb (1 Meq/ml) 150 ml Rx#:[id number] Oral 600 Output: Urine 190 300 Other: Voiding Method Indwelling Catheter Indwelling Catheter Indwelling Catheter On examination is somewhat sleepy but arousable HEENT exam no JVP neck is supple no facial asymmetry Pupils are equal and reactive Heart sounds are unremarkable for any murmur rub gallop Lungs are clear to auscultation good air entry bilaterally. Abdomen soft nontender no organomegaly ascites masses Extremity exam was trace edema Neurologically somewhat tired and weak but oriented. No asterixis. - Labs CBC & Chem 7: 03/02/19 06:03 03/02/19 06:03 Labs: Abnormal Lab Results - Last 24 Hours (Table) 03/01/19 03/01/19 03/01/19 Range/Units 09:38 16:46 18:38 WBC (3.8-10.6) k/uL RBC (4.30-5.90) m/uL Hgb (13.0-17.5) gm/dL Hct (39.0-53.0) % Plt Count (150-450) k/uL Neutrophils # (1.3-7.7) k/uL Lymphocytes # (1.0-4.8) k/uL Sodium 136 L (137-145) mmol/L Chloride 95 L (98-107) mmol/L Carbon Dioxide 19 L (22-30) mmol/L BUN >120 H* (9-20) mg/dL Creatinine 17.85 H* (0.66-1.25) mg/dL Glucose 161 H (74-99) mg/dL POC Glucose (mg/dL) 167 H (75-99) mg/dL Calcium 8.3 L (8.4-10.2) mg/dL Phosphorus (2.5-4.5) mg/dL Iron 23 L (65-175) ug/dL TIBC 203 L (228-460) ug/dL Iron Saturation 11.33 L (15.00-50.00) AST 16 L (17-59) U/L Total Protein (6.3-8.2) g/dL Albumin (3.5-5.0) g/dL 03/02/19 03/02/19 Range/Units 06:03 06:03 WBC 12.1 H (3.8-10.6) k/uL RBC 2.86 L (4.30-5.90) m/uL Hgb 7.9 L (13.0-17.5) gm/dL Hct 24.5 L (39.0-53.0) % Plt Count 546 H (150-450) k/uL Neutrophils # 11.0 H (1.3-7.7) k/uL Lymphocytes # 0.5 L (1.0-4.8) k/uL Sodium 134 L (137-145) mmol/L Chloride 92 L (98-107) mmol/L Carbon Dioxide (22-30) mmol/L BUN 137 H* (9-20) mg/dL Creatinine 18.33 H* (0.66-1.25) mg/dL Glucose 141 H (74-99) mg/dL POC Glucose (mg/dL) (75-99) mg/dL Calcium 8.0 L (8.4-10.2) mg/dL Phosphorus 9.9 H* (2.5-4.5) mg/dL Iron (65-175) ug/dL TIBC (228-460) ug/dL Iron Saturation (15.00-50.00) AST 16 L (17-59) U/L Total Protein 5.9 L (6.3-8.2) g/dL Albumin 3.2 L (3.5-5.0) g/dL Microbiology - Last 24 Hours (Table) 03/01/19 09:38 Blood Culture - Preliminary Blood No Growth after 24 hours 03/01/19 13:10 Urine Culture - Preliminary Urine,Catheterized Assessment and Plan Assessment: Impression 1. Acute kidney injury cause not very clear, he was taking nonsteroidals, which might have caused the acute kidney injury. workup underway ultrasound is normal no hydronephrosis and kidney sizes 12.3 cm and 11.3 cm kidney on a urinalysis significant for 2+ protein and large leukocyte esterase and moderate bacteria greater than 182 RBCs and WBCs. Possible urinary tract infection. Rule out acute interstitial nephritis 2. Chronic kidney disease with baseline creatinine of 1.4 as of 08/10/2018. 3. Generalized weakness. 4. Hyperphosphatemia from acute kidney injury 5. Anemia off chronic kidney disease hemoglobin 7.9 6. Gap acidosis, bicarb is 19, but the anion gap is 22, suggestive of a element of metabolic alkalosis as well. The cause of alkalosis is from nausea vomiting or Recommendation 1. Check urine analysis, urine protein to creatinine ratio, urine and serum immunofixation. 2. Complements C3-C4. 3 LYLA and double-stranded DNA. 4. Will dialyze him tomorrow again. We'll attempt 3 hours and 3 L. 5. Because of possibility of acute incision nephritis, start prednisone 20 mg twice a day 6. Because of possibility of urine tract infection we'll treat him with Rocephin 1 g every 24 hours, obtain urine culture if one has not been done
[2019-03-02] MEDS ORDERED: LEVOFLOXACIN 500 MG TAB PO ONE (14:00)
[2019-03-02 14:15] LABS: Basophils % (A) 0 %; Eosinophils % (A) 0 %; HCT 28.5 % (39.0-53.0); HGB 8.8 gm/dL (13.0-17.5); Lymphocytes # (A) 0.4 k/uL (1.0-4.8); Lymphocytes % (A) 3 %; MCH 26.7 pg (25.0-35.0); MCHC 30.8 g/dL (31.0-37.0); MCV 86.9 fL (80.0-100.0); Mean Platelet Volume 6.7; Monocytes # (A) 0.4 k/uL (0-1.0); Monocytes % (A) 3 %; Neutrophils % (A) 93 %; Platelet Count 550 k/uL (150-450); RBC 3.28 m/uL (4.30-5.90); RDW 14.8 % (11.5-15.5); WBC 12.9 k/uL (3.8-10.6)
[2019-03-02 14:20] LABS: Partial Thromboplastin Time 32.9 sec (22.0-30.0); Prothrombin Time 10.8 sec (9.0-12.0)
--- NOTE | 2019-03-02 15:16 | P.CRDCN ---
History of Present Illness History of present illness: This is Rach Banuelos PA-C dictating a consult on this patient The patient was interviewed and examined by me IMPRESSION / ASSESSMENT: New-onset paroxysmal atrial fibrillation with RVR, spontaneous conversion to normal sinus rhythm Anasarca secondary to renal failure with pleural and pericardial effusion as well as lower extremity edema Hypertension Dyslipidemia PLAN: Start IV amiodarone for rhythm control IV heparin started by Dr. Allen, agree, watch for any bleeding Management of pleural effusions per pulmonology Start hydralazine 100 mg by mouth twice a day HPI Patient is a 73-year-old male with a past medical history of hypertension and dyslipidemia who presented to the emergency department with complaints of increasing shortness of breath. He is complaining of progressive shortness of breath for the last week, worse with exertion. He also complains of inter mittent left-sided pleuritic chest pain. Denies orthopnea, PND, or palpitations. He was found to have bilateral pleural effusions, left greater than right. Labs revealed multiple abnormalities including elevated creatinine 17.85 and hemoglobin 7.8. He has been started on dialysis. We were consulted for evaluations of reported NSVT. During hemodialysis, he went into atrial fibrillation with RVR and his blood pressure dropped from 150 systolic to 110 systolic. He converted spontaneously. Patient endorses shortness of breath but denies chest pain or palpitations. EXAMINATION: Temperature 90.2F, pulse 91, respirations 18, blood pressure 151/78, oxygen saturation 94% on 3 L nasal cannula Patient seen and examined laying in bed, appears to be in mild respiratory distress Breath sounds diminished bilaterally Heart is irregular and tachycardic, no murmurs appreciated 1+ pitting edema bilaterally REVIEW OF LABS, ECG & MEDICAL DATA Telemetry revealed sinus rhythm with PACs overnight, patient did go into atrial fibrillation with RVR during dialysis Chest CT showed moderate to large size pericardial effusion, small to moderate- sized left greater than right pleural effusions with associated bibasilar atelectasis and an additional focus of left mid lung consolidation Echocardiogram revealed normal LV size, moderate concentric LVH, LV systolic function and hemodynamic with an EF greater than 70%, moderate generalized pericardial effusion, and large pleural effusions WBC 12.1, hemoglobin 7.9, platelets 546, potassium 4.7, BUN 137, creatinine 18.33, bilirubin 16 Past Medical History Past Medical History: Cancer, Eye Disorder, Hyperlipidemia, Hypertension, Prostate Disorder Additional Past Medical History / Comment(s): GLAUCOMA BILAT EYES. HX COLON CANCER History of Any Multi-Drug Resistant Organisms: None Reported Additional Past Surgical History / Comment(s): COLONOSCOPY Past Anesthesia/Blood Transfusion Reactions: No Reported Reaction Smoking Status: Former smoker - Past Family History Mother Family Medical History: No Reported History Medications and Allergies Home Medications Medication Instructions Recorded Confirmed Type Atorvastatin [Lipitor] 40 mg PO HS 10/24/17 03/01/19 History Dorzolamide 2% [Trusopt 2%] 1 drop BOTH EYES BID 10/24/17 03/01/19 History Latanoprost Ophth [Xalatan 0.005%] 1 drop BOTH EYES HS 10/24/17 03/01/19 History Metolazone [Zaroxolyn] 10 mg PO DAILY 10/24/17 03/01/19 History Metoprolol Tartrate [Lopressor] 100 mg PO HS 10/24/17 03/01/19 History hydrALAZINE HCL [Apresoline] 100 mg PO BID 10/24/17 03/01/19 History Aspirin 81 mg PO DAILY 03/01/19 03/01/19 History Ergocalciferol (Vitamin D2) 50,000 unit PO Q7D 03/01/19 03/01/19 History [Drisdol] Potassium Chloride ER [K-Dur 20] 20 meq PO DAILY 03/01/19 03/01/19 History amLODIPine BESYLATE 10 mg PO DAILY 03/01/19 03/01/19 History Allergies Allergy/AdvReac Type Severity Reaction Status Date / Time GILMAR Inhibitors Allergy Anaphylaxis Verified 03/01/19 09:52 Penicillins Allergy Anaphylaxis Verified 03/01/19 09:52 Milk Containing Products AdvReac Abdominal Verified 03/01/19 09:52 Pain Physical Exam Vitals: Vital Signs Temp Pulse Pulse Resp BP Pulse Ox 03/02/19 12:26 98 03/02/19 12:19 96 03/02/19 11:13 91 18 03/02/19 11:01 98.2 F 91 18 151/78 94 L 03/02/19 08:00 98 18 03/02/19 03:11 99.2 F 98 18 168/71 95 03/01/19 23:30 79 18 184/113 95 03/01/19 20:00 97.2 F L 74 18 165/87 94 L 03/01/19 16:00 98.2 F 77 18 150/75 96 Intake and Output 03/01/19 03/02/19 03/02/19 22:59 06:59 14:59 Intake Total 1200 Output Total 190 300 Balance 1010 -300 Intake: IV 1200 Dextrose 5% in Water 1, 1200 000 ml @ 100 mls/hr IV . [id number] BRITTON with Sodium Bicarb (1 Meq/ml) 150 ml Rx#:[id number] Output: Urine 190 300 Other: Voiding Method Indwelling Catheter Indwelling Catheter Indwelling Catheter Weight 101.8 kg Results 03/02/19 13:48 03/02/19 06:03 Cardiac Enzymes 03/01/19 03/02/19 Range/Units 18:38 06:03 AST 16 L 16 L (17-59) U/L Coagulation 03/02/19 Range/Units 13:48 PT 10.8 (9.0-12.0) sec APTT 32.9 H (22.0-30.0) sec CBC 03/02/19 03/02/19 Range/Units 06:03 13:48 WBC 12.1 H 12.9 H (3.8-10.6) k/uL RBC 2.86 L 3.28 L (4.30-5.90) m/uL Hgb 7.9 L 8.8 L (13.0-17.5) gm/dL Hct 24.5 L 28.5 L (39.0-53.0) % Plt Count 546 H 550 H (150-450) k/uL Comprehensive Metabolic Panel 03/01/19 03/02/19 Range/Units 18:38 06:03 Sodium 136 L 134 L (137-145) mmol/L Potassium 4.4 4.7 (3.5-5.1) mmol/L Chloride 95 L 92 L (98-107) mmol/L Carbon Dioxide 19 L 22 (22-30) mmol/L BUN >120 H* 137 H* (9-20) mg/dL Creatinine 17.85 H* 18.33 H* (0.66-1.25) mg/dL Glucose 161 H 141 H (74-99) mg/dL Calcium 8.3 L 8.0 L (8.4-10.2) mg/dL AST 16 L 16 L (17-59) U/L ALT 27 25 (21-72) U/L Alkaline Phosphatase 88 76 (38-126) U/L Total Protein 6.3 5.9 L (6.3-8.2) g/dL Albumin 3.6 3.2 L (3.5-5.0) g/dL Current Medications Generic Name Dose Route Start Last Admin Trade Name Freq PRN Reason Stop Dose Admin Albuterol/Ipratropium 3 ml 03/02/19 12:00 03/02/19 12:14 Duoneb 0.5 Mg-3 Mg/3 Ml Soln INHALATION 3 ml RT-QID BRITTON Administration Dorzolamide HCl 1 drops 03/01/19 09:00 03/02/19 09:01 Trusopt BOTH EYES 1 drops BID BRITTON Administration Heparin Sodium (Porcine) 0 unit 03/02/19 13:24 Heparin IV PER PROTOCOL PRN Low PTT Protocol Hydralazine HCl 100 mg 03/02/19 11:30 03/02/19 12:31 Apresoline PO Not Given BID BRITTON Amiodarone HCl 360 mg/ 200 mls @ 33.333 mls/hr 03/02/19 13:45 Dextrose/Water IV 03/02/19 19:44 .Q6H ONE Protocol 1 MG/MIN Amiodarone HCl 300 mg/ 250 mls @ 25 mls/hr 03/02/19 19:00 Dextrose/Water IV 03/03/19 12:59 .Q10H BRITTON Protocol 0.5 MG/MIN Heparin Sodium/Sodium Chloride 250 mls @ 10.007 mls/hr 03/02/19 13:30 25,000 unit/ Sodium Chloride IV .Q24H BRITTON Protocol 9.83 UNITS/KG/HR Latanoprost 1 drops 03/01/19 21:00 03/01/19 20:02 Xalatan 0.005% BOTH EYES 1 drops HS BRITTON Administration Levofloxacin 250 mg 03/04/19 14:00 Levaquin PO Q48H BRITTON Morphine Sulfate 4 mg 03/01/19 03:49 03/01/19 13:01 Morphine Sulfate (Inj) IV 4 mg Q4HR PRN Administration Severe Pain Naloxone HCl 0.2 mg 03/01/19 03:49 Narcan IV Q2M PRN Opioid Reversal Ondansetron HCl 4 mg 03/01/19 08:23 03/02/19 03:32 Zofran PO 4 mg Q8HR PRN Administration Nausea And Vomiting Prednisone 20 mg 03/02/19 21:00 PO BID BRITTON Tramadol HCl 50 mg 03/01/19 17:01 Ultram PO 03/04/19 17:02 TID PRN Analgesia Intake and Output 03/01/19 03/02/19 03/02/19 22:59 06:59 14:59 Intake Total 1200 Output Total 190 300 Balance 1010 -300 Intake: IV 1200 Dextrose 5% in Water 1, 1200 000 ml @ 100 mls/hr IV . [id number] BRITTON with Sodium Bicarb (1 Meq/ml) 150 ml Rx#:[id number] Output: Urine 190 300 Other: Voiding Method Indwelling Catheter Indwelling Catheter Indwelling Catheter Weight 101.8 kg 03/02/19 13:48 03/02/19 06:03
[2019-03-02 17:34] LABS: Glucose,Whole Blood 119 mg/dL (75-99)
[2019-03-02] MEDS: AMIODARONE 300 MG in DEXTROSE 5% IN WATER 250 ML IV SCH ×2 (20:45)
[2019-03-02] MEDS: ENOXAPARIN 80 MG/0.8 ML SYRINGE SQ SCH (21:00)
[2019-03-02] MEDS: LATANOPROST 0.005% OPHTH DROPS 2.5 ML BTL BOTH EYES SCH (21:01)
[2019-03-02] MEDS: predniSONE 20 MG TAB PO SCH (21:02)
[2019-03-03] MEDS: AMIODARONE 300 MG in DEXTROSE 5% IN WATER 250 ML IV SCH ×2 (04:53)
[2019-03-03 05:25] LABS: Basophils % (A) 0 %; Eosinophils % (A) 0 %; HCT 25.1 % (39.0-53.0); HGB 7.7 gm/dL (13.0-17.5); Lymphocytes # (A) 0.3 k/uL (1.0-4.8); Lymphocytes % (A) 3 %; MCH 27.3 pg (25.0-35.0); MCHC 30.8 g/dL (31.0-37.0); MCV 88.7 fL (80.0-100.0); Mean Platelet Volume 6.7; Monocytes # (A) 0.3 k/uL (0-1.0); Monocytes % (A) 2 %; Neutrophils # (A) 10.4 k/uL (1.3-7.7); Neutrophils % (A) 94 %; Platelet Count 488 k/uL (150-450); RBC 2.83 m/uL (4.30-5.90); RDW 14.8 % (11.5-15.5); WBC 11.1 k/uL (3.8-10.6)
[2019-03-03 05:28] LABS: Calcium 7.9 mg/dL (8.4-10.2); Magnesium 1.7 mg/dL (1.6-2.3); Potassium 5.3 mmol/L (3.5-5.1)
[2019-03-03 05:35] LABS: Phosphorus 9.1 mg/dL (2.5-4.5)
[2019-03-03] MEDS: IPRATROPIUM-ALBUTEROL 3 ML NEB INHALATION SCH ×4 (07:07→19:14)
--- NOTE | 2019-03-03 07:36 | XR ---
EXAMINATION TYPE: XR chest 1V portable DATE OF EXAM: 03/03/2019 COMPARISON: 03/02/2019 INDICATION: Adventitious lung sounds TECHNIQUE: Single frontal view of the chest is obtained. FINDINGS: The heart size is markedly enlarged. The pulmonary vasculature is normal. There is a moderate left pleural effusion. Minimal effusion of the right is not excluded. Findings ar e stable over the interval IMPRESSION: 1. Marked cardiomegaly with a moderate left pleural effusion
--- NOTE | 2019-03-03 08:09 | P.PN ---
Subjective Progress Note Date: 03/03/19 Principal diagnosis: This is a 73-year-old male admitted with weakness and found to have severe acute kidney injury creatinine being 18. He was started on dialysis yesterday 03/02. He was somewhat obtunded and short of breath. Since yesterday's urine output has picked up to 700 mL. He is feeling somewhat better more awake and alert. He did admit to taking 2-3 nonsteroidals everyday for the last few days and in addition had nausea vomiting and diarrhea. Workup for his acute kidney injury is pending including serologies. Urinalysis is suggestive of acute interstitial nephritis therefore he was started on prednisone 20 g twice a day yesterday. His baseline creatinine is 1.4 mg likely nephrosclerosis. He is known with hypertension and hyperlipidemia history of prostatism history of colon cancer and glaucoma Objective - Vital Signs Vital signs: Vital Signs Temp 99 F 03/03/19 04:00 Pulse 74 03/03/19 07:19 Resp 16 03/03/19 07:00 BP 153/79 03/03/19 07:00 Pulse Ox 95 03/03/19 07:10 Intake & Output 03/02/19 03/03/19 03/03/19 18:59 06:59 18:59 Intake Total 576.66 649.960 Output Total 4630 173 Balance -4053.34 476.960 Weight 97 kg Intake: IV 76.66 399.96 Amiodarone 360 mg In 66.66 399.96 Dextrose 5% in Water 200 ml @ 1 MG/MIN 33.333 mls/ hr IV .Q6H ONE Rx#: [id number] Invasive Line 1 10 Intake, IV Titration 250.000 Amount Amiodarone 300 mg In 250.000 Dextrose 5% in Water 250 ml @ 0.5 MG/MIN 25 mls/hr IV .Q10H [facility] Rx#: [id number] Oral 200 Hemodialysis 300 Output: Urine 530 173 Uretheral (Zapata) 150 Hemodialysis 2200 Other 1900 Other: Voiding Method Indwelling Catheter Indwelling Catheter On examination is awake alert oriented comfortable. Has generalized weakness 2 HEENT exam no JVP neck is supple no facial asymmetry Lungs are clear to auscultation with an occasional coarse crackle at bases Heart sounds are unremarkable for any murmur rub gallop Abdomen soft nontender no masses felt Extreme exam was trace edema Neurologically awake alert oriented but has generalized weakness. No asterixis. - Labs CBC & Chem 7: 03/03/19 04:22 03/03/19 04:22 Labs: Abnormal Lab Results - Last 24 Hours (Table) 03/01/19 03/02/19 03/02/19 Range/Units 18:38 13:48 13:48 WBC 12.9 H (3.8-10.6) k/uL RBC 3.28 L (4.30-5.90) m/uL Hgb 8.8 L (13.0-17.5) gm/dL Hct 28.5 L (39.0-53.0) % MCHC 30.8 L (31.0-37.0) g/dL Plt Count 550 H (150-450) k/uL Neutrophils # 12.0 H (1.3-7.7) k/uL Lymphocytes # 0.4 L (1.0-4.8) k/uL APTT 32.9 H (22.0-30.0) sec Sodium (137-145) mmol/L Potassium (3.5-5.1) mmol/L Chloride (98-107) mmol/L Carbon Dioxide (22-30) mmol/L BUN >120 H* (9-20) mg/dL Creatinine (0.66-1.25) mg/dL Glucose (74-99) mg/dL POC Glucose (mg/dL) (75-99) mg/dL Calcium (8.4-10.2) mg/dL Phosphorus (2.5-4.5) mg/dL U Random Total Protein (<12) mg/dL 03/02/19 03/02/19 03/03/19 Range/Units 16:03 17:22 04:22 WBC 11.1 H (3.8-10.6) k/uL RBC 2.83 L (4.30-5.90) m/uL Hgb 7.7 L (13.0-17.5) gm/dL Hct 25.1 L (39.0-53.0) % MCHC 30.8 L (31.0-37.0) g/dL Plt Count 488 H (150-450) k/uL Neutrophils # 10.4 H (1.3-7.7) k/uL Lymphocytes # 0.3 L (1.0-4.8) k/uL APTT (22.0-30.0) sec Sodium (137-145) mmol/L Potassium (3.5-5.1) mmol/L Chloride (98-107) mmol/L Carbon Dioxide (22-30) mmol/L BUN (9-20) mg/dL Creatinine (0.66-1.25) mg/dL Glucose (74-99) mg/dL POC Glucose (mg/dL) 119 H (75-99) mg/dL Calcium (8.4-10.2) mg/dL Phosphorus (2.5-4.5) mg/dL U Random Total Protein 271 H (<12) mg/dL 03/03/19 Range/Units 04:22 WBC (3.8-10.6) k/uL RBC (4.30-5.90) m/uL Hgb (13.0-17.5) gm/dL Hct (39.0-53.0) % MCHC (31.0-37.0) g/dL Plt Count (150-450) k/uL Neutrophils # (1.3-7.7) k/uL Lymphocytes # (1.0-4.8) k/uL APTT (22.0-30.0) sec Sodium 133 L (137-145) mmol/L Potassium 5.3 H (3.5-5.1) mmol/L Chloride 93 L (98-107) mmol/L Carbon Dioxide 21 L (22-30) mmol/L BUN 98 H (9-20) mg/dL Creatinine 14.35 H* (0.66-1.25) mg/dL Glucose 141 H (74-99) mg/dL POC Glucose (mg/dL) (75-99) mg/dL Calcium 7.9 L (8.4-10.2) mg/dL Phosphorus 9.1 H* (2.5-4.5) mg/dL U Random Total Protein (<12) mg/dL Microbiology - Last 24 Hours (Table) 03/01/19 13:10 Urine Culture - Final Urine,Catheterized 03/01/19 09:38 Blood Culture - Preliminary Blood No Growth after 24 hours Assessment and Plan Assessment: Impression 1. Acute kidney injury, although the cause yesterday was unclear but now that he is more alert he is admitting to using 2-3 nonsteroidals every day and had nausea vomiting and diarrhea for the last few days prior to admission. This explains his acute kidney injury but because of the urinalysis showing some active sediment I have provisionally started him on prednisone 20 twice a day for possible acute interstitial nephritis. Urine output is picking up 700 mL the last 24 hours. He had his first dialysis yesterday and tolerated fairly well. Second dialysis at the done today. 2. Chronic kidney disease with baseline creatinine of 1.4 as of 08/10/2018. 3. Generalized weakness. 4. Hyperphosphatemia from acute kidney injury 5. Anemia off chronic kidney disease hemoglobin 7.9 6. Gap acidosis, bicarb is 19, but the anion gap is 22, suggestive of a element of metabolic alkalosis as well. The cause of alkalosis is from nausea vomiting or Recommendation 1. Continue dialysis today and then reassess tomorrow based on labs and urine output. 2. Continue prednisone 20 mg twice a day 3. Pending lab including complement LYLA double-stranded DNA. Urine immunofixation 4. Start binders because of the hyperphosphatemia will give him PhosLo 1 with each meal.
[2019-03-03] MEDS: DORZOLAMIDE HCL 2% DROPS 10 ML BTL BOTH EYES SCH ×2 (08:18→20:27)
[2019-03-03] MEDS: predniSONE 20 MG TAB PO SCH ×2 (08:18→20:27)
[2019-03-03] MEDS: ENOXAPARIN 80 MG/0.8 ML SYRINGE SQ SCH (08:18)
[2019-03-03] MEDS: hydrALAZINE HCL 50 MG TAB PO SCH ×2 (08:18→20:27)
--- NOTE | 2019-03-03 09:12 | US ---
EXAMINATION TYPE: US chest DATE OF EXAM: 03/03/2019 COMPARISON: NONE CLINICAL HISTORY: thoracentesis. SOB TECHNIQUE: Targeted ultrasound of the posterior lower Bilateral EXAM MEASUREMENTS: Right Pleural Effusion pocket size: 10.8 cm Right skin surface to fluid distance: 4.2 cm Left Pleural Effusion pocket size: 9.3 cm Left skin surface to fluid distance: 4.3 cm patient was marked on 03/01 bilaterally and assessment today shows markings are still accurate. Right side marked for possible thoracentesis outside the dept. Left side marked for possible thoracentesis outside the dept. Pulmonologists are able to review the images in the patient?s EMR. IMPRESSIONS: 1. Bilateral pleural effusions.
--- NOTE | 2019-03-03 09:55 | XR ---
EXAMINATION TYPE: XR chest 1V portable DATE OF EXAM: 03/03/2019 COMPARISON: 03/03/2019 INDICATION: Status post left thoracentesis TECHNIQUE: Single frontal view of the chest is obtained. FINDINGS: The heart size is very prominent. The pulmonary vasculature is normal. There is diminished small to moderate left pleural effusion. Minimal right pleural effusion is presen t. No pneumothorax is evident post thoracentesis. IMPRESSION: 1. Diminished left pleural effusion. 2. Small right pleural effusion. 3. No pneumothorax postthoracentesis.
--- NOTE | 2019-03-03 10:31 | P.PN ---
Subjective Progress Note Date: 03/03/19 Principal diagnosis: Bilateral pleural effusions secondary to acute on chronic kidney injury, acute on chronic renal failure, This 73-year-old -[place]omin[place] male patient of Dr. Ortiz, who presented to the emergency department on 03/01/2019 with complaints of left shoulder pain, not feeling well, decreased appetite, nausea vomiting. Apparently there was a recent outpatient chest x-ray done showing a large-sized left pleural effusion. Patient was taking Aleve for his left shoulder pain, denied any injury, or trauma to his left shoulder. Denied any chest pain, cough or congestion, his any abdominal pain, although does admit to being nauseous. Passing normal bowel movements. Patient has a history of hypertension, hyperlipidemia, chronic kidney disease stage III, slight creatinine of 1.4 mg/dL, 2 of colon cancer, glaucoma, BPH, history of previous nicotine dependence. No history of drug abuse or alcohol abuse. Chest x-ray was completed showing moderate sized left pleural effusion, adjacent atelectasis, and minor right basilar opacity with atelectasis/infiltrate. He megaly and mild pulmonary vascular congestion. EKG shows sinus rhythm with PAC. CT of the chest was completed showing moderate to large size pericardial effusion, and small to moderate size left greater than right pleural effusions with associated left basilar atelectasis. There is vo lume loss in the right side of unknown etiology. Echocardiogram was completed showing moderate concentric left ventricular hypertrophy with hyperdynamic left ventricle systolic function with an EF of greater than 70%, mild aortic stenosis, no pulmonary hypertension, and does moderate generalized pericardial effusion. Blood work showed significant increase in patient's creatinine from his baseline, at 18.4, with BUN of 133, serum sodium is 133, potassium is 4.7, chloride was 95, CO2 was 16, troponin was negative, proBNP was at 7940, liver enzymes were within normal limits, white blood cell count of 14.7, hemoglobin of 7.8, platelet count was 537, coordination profile was within normal limits, urinalysis showed 2+ protein, large amount of leuk trase, large amount of PRBCs and large amount of WBCs with many WBC clumps and urine bacteria. Patient is currently sitting up in the chair, in no acute distress, he denies any shortness of breath, room air pulse ox is 92%, denies any chest pain, he is afebrile, respirations are nonlabored, lung sounds reveal diminished breath sounds on the left, patient is having emergent temporary hemodialysis catheter inserted sometime this afternoon with urgent hemodialysis. The patient is seen today 03/02/2019 in follow-up on the selective care unit. He did not receive dialysis yesterday. He did go down for a right femoral dialysis catheter placement this morning. He is to receive dialysis today. He is awake and alert. Resting fairly comfortably in bed. Maintaining O2 saturations in the 90s on room air. He's had a low-grade temperature. Hypertensive. Urine culture pending. White count 12.1. Hemoglobin 7.9. BUN 137. Creatinine 18.33. Patient was reevaluated today on 03/03/2019, patient was transferred yesterday to the intensive care unit, mostly because of intermittent episodes of atrial fibrillation and RVR, he was placed on amiodarone drip, and on heparin, the nurse taking care of the patient was having difficulty with venous access, hence the patient was transferred to the ICU, he already had an external jugular venous line placed by nurse practitioner, and apparently one of the lines in the dialysis catheter could be used for infusion purposes if needed. That did not need to be used and overnight the patient was switched from IV heparin to Lovenox, and we recommended that he remains on amiodarone drip. Today the patient will be placed on Coumadin, and the Lovenox will be discontinued altogether. I did perform a left-sided thoracentesis, and 1350 mL of fluid drained from the left pleural space. Patient is presently in sinus rhythm, on amiodarone drip, hemodynamically stable, and in no distress. His labs today showed a low hemoglobin of 7.7 WBC count is 11.1. BUN is 98 creatinine 14.35, I believe the patient will dialyzed again today. Patient has a baseline creatinine of 1.4 however on this admission he obviously sustained acute on chronic kidney injury. Apparently the patient has been taking nonsteroidal and the inflammatory medications, and he presented with intermittent episodes of nausea vomiting and diarrhea. His urinalysis was suggestive of interstitial nephritis hence nephrology recommended starting the patient on prednisone 20 mg twice a day. Objective - Vital Signs Vital signs: Vital Signs Temp 99 F 03/03/19 04:00 Pulse 74 03/03/19 07:19 Resp 16 03/03/19 07:00 BP 153/79 03/03/19 07:00 Pulse Ox 95 03/03/19 07:10 Intake & Output 03/02/19 03/03/19 03/03/19 18:59 06:59 18:59 Intake Total 576.66 649.960 Output Total 4630 173 Balance -4053.34 476.960 Weight 97 kg Intake: IV 76.66 399.96 Amiodarone 360 mg In 66.66 399.96 Dextrose 5% in Water 200 ml @ 1 MG/MIN 33.333 mls/ hr IV .Q6H ONE Rx#: [id number] Invasive Line 1 10 Intake, IV Titration 250.000 Amount Amiodarone 300 mg In 250.000 Dextrose 5% in Water 250 ml @ 0.5 MG/MIN 25 mls/hr IV .Q10H [facility] Rx#: [id number] Oral 200 Hemodialysis 300 Output: Urine 530 173 Uretheral (Zapata) 150 Hemodialysis 2200 Other 1900 Other: Voiding Method Indwelling Catheter Indwelling Catheter - Exam Physical exam revealed a 73-year-old -Dominican male, in no distress. On few liters nasal cannula. HEENT: PERRLA, EOMI, moist mucous membranes, no neck masses, throat is clear, no JVD. No lymphadenopathy. Lungs: Symmetrical chest expansion, diminished breath sounds and dullness at the left base, right side is relatively clear. Cardiac: Normal S1 and S2, no S3 gallop, no murmur. Abdomen: Obese, soft, nontender, no megaly, no rebound, no guarding, positive bowel sounds. Extremities: Trace of bipedal edema, no clubbing, no cyanosis. Good pulses bilaterally. Neurologically: Alert oriented 3, no gross focal neurologic deficits. Skin: No rashes. Lymphatics: No lymphadenopathy. Psychiatric: Blunted affect, depressed mood, normal mental status examination. - Labs CBC & Chem 7: 03/03/19 04:22 03/03/19 04:22 Labs: Abnormal Lab Results - Last 24 Hours (Table) 03/01/19 03/02/19 03/02/19 Range/Units 18:38 13:48 13:48 WBC 12.9 H (3.8-10.6) k/uL RBC 3.28 L (4.30-5.90) m/uL Hgb 8.8 L (13.0-17.5) gm/dL Hct 28.5 L (39.0-53.0) % MCHC 30.8 L (31.0-37.0) g/dL Plt Count 550 H (150-450) k/uL Neutrophils # 12.0 H (1.3-7.7) k/uL Lymphocytes # 0.4 L (1.0-4.8) k/uL APTT 32.9 H (22.0-30.0) sec Sodium (137-145) mmol/L Potassium (3.5-5.1) mmol/L Chloride (98-107) mmol/L Carbon Dioxide (22-30) mmol/L BUN >120 H* (9-20) mg/dL Creatinine (0.66-1.25) mg/dL Glucose (74-99) mg/dL POC Glucose (mg/dL) (75-99) mg/dL Calcium (8.4-10.2) mg/dL Phosphorus (2.5-4.5) mg/dL U Random Total Protein (<12) mg/dL 03/02/19 03/02/19 03/03/19 Range/Units 16:03 17:22 04:22 WBC 11.1 H (3.8-10.6) k/uL RBC 2.83 L (4.30-5.90) m/uL Hgb 7.7 L (13.0-17.5) gm/dL Hct 25.1 L (39.0-53.0) % MCHC 30.8 L (31.0-37.0) g/dL Plt Count 488 H (150-450) k/uL Neutrophils # 10.4 H (1.3-7.7) k/uL Lymphocytes # 0.3 L (1.0-4.8) k/uL APTT (22.0-30.0) sec Sodium (137-145) mmol/L Potassium (3.5-5.1) mmol/L Chloride (98-107) mmol/L Carbon Dioxide (22-30) mmol/L BUN (9-20) mg/dL Creatinine (0.66-1.25) mg/dL Glucose (74-99) mg/dL POC Glucose (mg/dL) 119 H (75-99) mg/dL Calcium (8.4-10.2) mg/dL Phosphorus (2.5-4.5) mg/dL U Random Total Protein 271 H (<12) mg/dL 03/03/19 Range/Units 04:22 WBC (3.8-10.6) k/uL RBC (4.30-5.90) m/uL Hgb (13.0-17.5) gm/dL Hct (39.0-53.0) % MCHC (31.0-37.0) g/dL Plt Count (150-450) k/uL Neutrophils # (1.3-7.7) k/uL Lymphocytes # (1.0-4.8) k/uL APTT (22.0-30.0) sec Sodium 133 L (137-145) mmol/L Potassium 5.3 H (3.5-5.1) mmol/L Chloride 93 L (98-107) mmol/L Carbon Dioxide 21 L (22-30) mmol/L BUN 98 H (9-20) mg/dL Creatinine 14.35 H* (0.66-1.25) mg/dL Glucose 141 H (74-99) mg/dL POC Glucose (mg/dL) (75-99) mg/dL Calcium 7.9 L (8.4-10.2) mg/dL Phosphorus 9.1 H* (2.5-4.5) mg/dL U Random Total Protein (<12) mg/dL Microbiology - Last 24 Hours (Table) 03/01/19 13:10 Urine Culture - Final Urine,Catheterized 03/01/19 09:38 Blood Culture - Preliminary Blood No Growth after 24 hours Assessment and Plan Assessment: Impression: Acute bilateral pleural effusions left greater than right, most likely secondary to acute on chronic kidney injury. Possible interstitial nephritis based on the urinalysis, patient was started empirically on prednisone by nephrology. Paroxysmal atrial fibrillation with RVR, relatively normal echocardiogram, patient is presently on amiodarone, and he is in sinus rhythm. History of Chronic kidney disease stage III Acute urinary tract infection History of prostate cancer previous robotic prostatectomy. In October of 2017. Benign essential hypertension Hyperlipidemia Glaucoma History of colon cancer Anion gap metabolic acidosis Anemia of chronic kidney disease Hyperphosphatemia secondary to renal failure Generalized weakness Status post left-sided thoracentesis on 03/03/2019. Labs on the pleural effusion are pending. Recommendation: Continue present supportive care measures, continue amiodarone, switch from Lovenox to Coumadin, continue prednisone, continue empiric antibiotics, patient is presently on Levaquin, continue updrafts, continue Lasix, continue hydralazine, avoid nonsteroidal anti-inflammatory drugs, patient is on tramadol now for pain, continue Protonix. Discussed his condition with cardiology on the case, we'll continue to monitor in the ICU for the next 24 hours, and possibly transfer out of the ICU tomorrow. We'll continue to follow Time with Patient: Less than 30
--- NOTE | 2019-03-03 11:01 | PCN ---
PROCEDURE NOTE OPERATIVE REPORT: Left-sided thoracentesis. PREOPERATIVE DIAGNOSIS/ INDICATION FOR THE PROCEDURE: Large left pleural effusion. POSTOPERATIVE DIAGNOSIS: Large left pleural effusion. ANESTHESIA USED: 2 mL of 1% lidocaine. DESCRIPTION OF THE PROCEDURE: Patient was placed in a sitting upright position, the fluid was earlier localized by ultrasound guidance. The area that was marked was basically at the level of the 8th intercostal space and tip of the scapula. The area was locally anesthetized, and a 26- gauge needle was inserted at the same site, advanced into the pleural space until the fluid was localized. Then a small tiny incision of the skin was made, and a standard thoracentesis catheter and needle were used, advanced at the same site through the incision into the pleural space. The fluid was localized and obtained again, then the catheter was advanced out of the needle and into the pleural space and the needle was pulled out of the pleural space. Freely flowing fluid was removed from the left pleural space. Roughly 1350 mL of slightly serosanguineous and slightly lipemic fluid was drained from the left pleural space. The fluid was drained easily, again a total of 1350 mL were obtained, and these were sent for different diagnostic studies. Procedure was well tolerated, chest x-ray postoperatively showed no evidence of pneumothorax of complication. MMODL / IJN: [id number] /
--- NOTE | 2019-03-03 12:27 | P.PN ---
Subjective This is Rach Banuelos PA-C dictating a progress note on this patient The patient was interviewed and examined by me as well as by Dr. Marquez Case discussed with Dr. Marquez and he agrees with the plan of care IMPRESSION / ASSESSMENT: Paroxysmal atrial fibrillation, rate controlled, was on heparin and then switched to lovenox Acute renal failure requiring dialysis Anasarca with pleural and pericardial effusions, status post pleurocentesis Anemia Hypertension Dyslipidemia PLAN: Continue IV amiodarone for rate control discontinue Lovenox and start low-dose warfarin for stroke prevention, monitor hemoglobin and watch for signs of bleeding start back on home dose of atorvastatin HPI/interval history Patient is a 73-year-old male who came in with complaints of shortness of breath and was found to have acute renal failure, anemia, and anasarca with pleural effusions and pericardial effusions. He was started on dialysis. Yesterday he went in to atrial fibrillation with RVR and was started on IV amiodarone and heparin. He converted to sinus rhythm but had more episodes of paroxysmal atrial fibrillation overnight. This morning he underwent pleurocentesis and had around 1500 ccs drained. Patient seen and examined resting in bed. Bedside telemetry shows he is currently in sinus rhythm. States his breathing has improved. Denies chest pain or palpitations. Denies a history of GI bleeding or anemia. States he has never been on any blood thinners. EXAMINATION Temperature 90.9F, pulse 74, blood pressure 153/79, respirations 16, oxygen saturation 95% on 4 L nasal cannula Patient seen and examined resting in bed, no acute distress, appears to be breathing more comfortably than yesterday. breath sounds mildly diminished but clear bilaterally Heart sounds are soft, regular, no murmurs appreciated No elevated JVD noted Trace bilateral lower extremity edema REVIEW OF LABS, ECG WBC 11.1, hemoglobin 7.7, potassium 5.3, BUN 98, creatinine 14.35 Rhythm strips reveal sinus rhythm with short runs of paroxysmal atrial fibrillation, rate controlled Most recent TSH was within normal limits in July Objective - Vital Signs Vital signs: Vital Signs Temp 99 F 03/03/19 04:00 Pulse 74 03/03/19 07:19 Resp 16 03/03/19 07:00 BP 153/79 03/03/19 07:00 Pulse Ox 95 03/03/19 07:10 Intake & Output 03/02/19 03/03/19 03/03/19 18:59 06:59 18:59 Intake Total 576.66 649.960 Output Total 4630 173 Balance -4053.34 476.960 Weight 97 kg Intake: IV 76.66 399.96 Amiodarone 360 mg In 66.66 399.96 Dextrose 5% in Water 200 ml @ 1 MG/MIN 33.333 mls/ hr IV .Q6H [facility] Rx#: [id number] Invasive Line 1 10 Intake, IV Titration 250.000 Amount Amiodarone 300 mg In 250.000 Dextrose 5% in Water 250 ml @ 0.5 MG/MIN 25 mls/hr IV .Q10H [facility] Rx#: [id number] Oral 200 Hemodialysis 300 Output: Urine 530 173 Uretheral (Zapata) 150 Hemodialysis 2200 Other 1900 Other: Voiding Method Indwelling Catheter Indwelling Catheter - Labs CBC & Chem 7: 03/03/19 04:22 03/03/19 04:22 Labs: Abnormal Lab Results - Last 24 Hours (Table) 03/01/19 03/02/19 03/02/19 Range/Units 18:38 13:48 13:48 WBC 12.9 H (3.8-10.6) k/uL RBC 3.28 L (4.30-5.90) m/uL Hgb 8.8 L (13.0-17.5) gm/dL Hct 28.5 L (39.0-53.0) % MCHC 30.8 L (31.0-37.0) g/dL Plt Count 550 H (150-450) k/uL Neutrophils # 12.0 H (1.3-7.7) k/uL Lymphocytes # 0.4 L (1.0-4.8) k/uL APTT 32.9 H (22.0-30.0) sec Sodium (137-145) mmol/L Potassium (3.5-5.1) mmol/L Chloride (98-107) mmol/L Carbon Dioxide (22-30) mmol/L BUN >120 H* (9-20) mg/dL Creatinine (0.66-1.25) mg/dL Glucose (74-99) mg/dL POC Glucose (mg/dL) (75-99) mg/dL Calcium (8.4-10.2) mg/dL Phosphorus (2.5-4.5) mg/dL U Random Total Protein (<12) mg/dL 03/02/19 03/02/19 03/03/19 Range/Units 16:03 17:22 04:22 WBC 11.1 H (3.8-10.6) k/uL RBC 2.83 L (4.30-5.90) m/uL Hgb 7.7 L (13.0-17.5) gm/dL Hct 25.1 L (39.0-53.0) % MCHC 30.8 L (31.0-37.0) g/dL Plt Count 488 H (150-450) k/uL Neutrophils # 10.4 H (1.3-7.7) k/uL Lymphocytes # 0.3 L (1.0-4.8) k/uL APTT (22.0-30.0) sec Sodium (137-145) mmol/L Potassium (3.5-5.1) mmol/L Chloride (98-107) mmol/L Carbon Dioxide (22-30) mmol/L BUN (9-20) mg/dL Creatinine (0.66-1.25) mg/dL Glucose (74-99) mg/dL POC Glucose (mg/dL) 119 H (75-99) mg/dL Calcium (8.4-10.2) mg/dL Phosphorus (2.5-4.5) mg/dL U Random Total Protein 271 H (<12) mg/dL 03/03/19 Range/Units 04:22 WBC (3.8-10.6) k/uL RBC (4.30-5.90) m/uL Hgb (13.0-17.5) gm/dL Hct (39.0-53.0) % MCHC (31.0-37.0) g/dL Plt Count (150-450) k/uL Neutrophils # (1.3-7.7) k/uL Lymphocytes # (1.0-4.8) k/uL APTT (22.0-30.0) sec Sodium 133 L (137-145) mmol/L Potassium 5.3 H (3.5-5.1) mmol/L Chloride 93 L (98-107) mmol/L Carbon Dioxide 21 L (22-30) mmol/L BUN 98 H (9-20) mg/dL Creatinine 14.35 H* (0.66-1.25) mg/dL Glucose 141 H (74-99) mg/dL POC Glucose (mg/dL) (75-99) mg/dL Calcium 7.9 L (8.4-10.2) mg/dL Phosphorus 9.1 H* (2.5-4.5) mg/dL U Random Total Protein (<12) mg/dL Microbiology - Last 24 Hours (Table) 03/01/19 13:10 Urine Culture - Final Urine,Catheterized 03/01/19 09:38 Blood Culture - Preliminary Blood No Growth after 24 hours
[2019-03-03 12:39] LABS: Appearance,BF Cloudy; Color,BF Orange
[2019-03-03 12:40] LABS: Nucleated Cells, Body Fluid 13200 /uL; RBC, Body Fluid 13850 /uL
[2019-03-03 12:42] LABS: Mononuclear WBC,Body Fluid 20 %; Polynuclear WBC,Body Fluid 80 %; Total Cells Counted,Body Fluid 100
[2019-03-03] MEDS ORDERED: AMIODARONE 360 MG in DEXTROSE 5% IN WATER 200 ML IV ONE ×2 (17:29)
[2019-03-03] MEDS ORDERED: PANTOPRAZOLE 40 MG TABLET PO SCH (17:30)
[2019-03-03] MEDS: WARFARIN 5 MG TAB PO SCH (19:55)
[2019-03-03] MEDS: LATANOPROST 0.005% OPHTH DROPS 2.5 ML BTL BOTH EYES SCH (20:27)
[2019-03-03] MEDS: ATORVASTATIN 40 MG TAB PO SCH (20:27)
[2019-03-04] MEDS: AMIODARONE 360 MG in DEXTROSE 5% IN WATER 200 ML IV ONE ×4 (02:24→08:29)
[2019-03-04 05:08] LABS: Basophils % (A) 0 %; Eosinophils % (A) 0 %; HCT 23.8 % (39.0-53.0); Lymphocytes # (A) 0.2 k/uL (1.0-4.8); Lymphocytes % (A) 2 %; MCH 26.1 pg (25.0-35.0); MCHC 29.6 g/dL (31.0-37.0); MCV 88.2 fL (80.0-100.0); Mean Platelet Volume 6.7; Monocytes # (A) 0.5 k/uL (0-1.0); Monocytes % (A) 4 %; Neutrophils # (A) 12.5 k/uL (1.3-7.7); Neutrophils % (A) 94 %; Platelet Count 517 k/uL (150-450); RDW 14.8 % (11.5-15.5); WBC 13.3 k/uL (3.8-10.6)
[2019-03-04 05:23] LABS: Magnesium 1.9 mg/dL (1.6-2.3); Potassium 4.6 mmol/L (3.5-5.1)
[2019-03-04] MEDS: PANTOPRAZOLE 40 MG TABLET PO SCH (07:04)
[2019-03-04] MEDS: IPRATROPIUM-ALBUTEROL 3 ML NEB INHALATION SCH ×4 (07:27→18:44)
--- NOTE | 2019-03-04 07:39 | P.CRDCN ---
Review of Systems Data review Hemoglobin white count 13.3, hemoglobin 7.0, weight let's 117,000 Sodium 134 potassium 4.6, creatinine 10.5, BUN 72 Follow-up chest x-ray after thoracentesis shows reduction in the left pleural effusion size, small right pleural effusion no pneumothorax Past Medical History Past Medical History: Cancer, Eye Disorder, Hyperlipidemia, Hypertension, Prostate Disorder Additional Past Medical History / Comment(s): GLAUCOMA BILAT EYES. HX COLON CANCER History of Any Multi-Drug Resistant Organisms: None Reported Additional Past Surgical History / Comment(s): COLONOSCOPY Past Anesthesia/Blood Transfusion Reactions: No Reported Reaction Smoking Status: Former smoker - Past Family History Mother Family Medical History: No Reported History Medications and Allergies Home Medications Medication Instructions Recorded Confirmed Type Atorvastatin [Lipitor] 40 mg PO HS 10/24/17 03/01/19 History Dorzolamide 2% [Trusopt 2%] 1 drop BOTH EYES BID 10/24/17 03/01/19 History Latanoprost Ophth [Xalatan 0.005%] 1 drop BOTH EYES HS 10/24/17 03/01/19 History Metolazone [Zaroxolyn] 10 mg PO DAILY 10/24/17 03/01/19 History Metoprolol Tartrate [Lopressor] 100 mg PO HS 10/24/17 03/01/19 History hydrALAZINE HCL [Apresoline] 100 mg PO BID 10/24/17 03/01/19 History Aspirin 81 mg PO DAILY 03/01/19 03/01/19 History Ergocalciferol (Vitamin D2) 50,000 unit PO Q7D 03/01/19 03/01/19 History [Drisdol] Potassium Chloride ER [K-Dur 20] 20 meq PO DAILY 03/01/19 03/01/19 History amLODIPine BESYLATE 10 mg PO DAILY 03/01/19 03/01/19 History Allergies Allergy/AdvReac Type Severity Reaction Status Date / Time GILMAR Inhibitors Allergy Anaphylaxis Verified 03/01/19 09:52 Penicillins Allergy Anaphylaxis Verified 03/01/19 09:52 Milk Containing Products AdvReac Abdominal Verified 03/01/19 09:52 Pain Physical Exam Vitals: Vital Signs Temp Pulse Resp BP Pulse Ox 03/04/19 07:29 75 03/04/19 07:00 80 17 137/68 94 L 03/04/19 06:00 70 14 144/77 95 03/04/19 05:00 73 15 143/70 96 03/04/19 04:00 99.2 F 73 18 124/66 95 03/04/19 03:14 21 03/04/19 03:00 74 17 140/63 94 L 03/04/19 02:00 99.5 F 80 21 152/64 93 L 03/04/19 01:00 81 21 143/73 94 L 03/04/19 00:00 98.4 F 81 18 135/67 94 L 03/03/19 23:00 78 19 110/70 95 03/03/19 22:00 83 18 135/77 95 03/03/19 21:00 77 26 H 151/77 95 03/03/19 20:00 98.6 F 79 20 159/75 94 L 03/03/19 19:24 76 03/03/19 19:16 79 03/03/19 19:00 78 18 140/81 97 03/03/19 18:00 75 22 143/63 95 03/03/19 17:00 76 15 150/68 96 03/03/19 16:00 98.3 F 80 17 153/68 95 03/03/19 15:42 82 03/03/19 15:32 80 03/03/19 15:00 78 16 146/71 97 03/03/19 14:00 80 20 141/75 95 03/03/19 13:00 73 15 162/78 95 03/03/19 12:00 98.6 F 75 14 129/63 94 L 03/03/19 11:04 74 03/03/19 11:00 73 13 153/67 99 03/03/19 10:55 76 03/03/19 10:00 77 15 117/85 95 03/03/19 09:00 80 24 170/76 96 03/03/19 08:00 97.5 F L 80 18 149/76 93 L Intake and Output 03/03/19 03/04/19 03/04/19 22:59 06:59 14:59 Intake Total 180 40 5 Output Total 3065 50 12 Balance -2885 -10 -7 Intake: IV 180 40 5 Amiodarone 360 mg In 165 Dextrose 5% in Water 200 ml @ 1 MG/MIN 33.333 mls/ hr IV .Q6H ONE Rx#: [id number] NaCl 0.9 15 40 5 Output: Urine 65 50 12 Other 3000 Other: Voiding Method Indwelling Catheter Indwelling Catheter Weight 88.1 kg Results 03/04/19 04:32 03/04/19 04:32 CBC 03/04/19 Range/Units 04:32 WBC 13.3 H (3.8-10.6) k/uL RBC 2.70 L (4.30-5.90) m/uL Hgb 7.0 L (13.0-17.5) gm/dL Hct 23.8 L (39.0-53.0) % Plt Count 517 H (150-450) k/uL Comprehensive Metabolic Panel 03/04/19 Range/Units 04:32 Sodium 130 L (137-145) mmol/L Potassium 4.6 (3.5-5.1) mmol/L Chloride 92 L (98-107) mmol/L Carbon Dioxide 23 (22-30) mmol/L BUN 72 H (9-20) mg/dL Creatinine 10.55 H* (0.66-1.25) mg/dL Glucose 163 H (74-99) mg/dL Calcium 8.0 L (8.4-10.2) mg/dL Current Medications Generic Name Dose Route Start Last Admin Trade Name Freq PRN Reason Stop Dose Admin Albuterol/Ipratropium 3 ml 03/02/19 12:00 03/04/19 07:27 Duoneb 0.5 Mg-3 Mg/3 Ml Soln INHALATION 3 ml RT-QID BR[facility]TON Administration Atorvastatin Calcium 40 mg 03/03/19 21:00 03/03/19 20:27 Lipitor PO 40 mg HS BR[facility]TON Administration Dorzolamide HCl 1 drops 03/01/19 09:00 03/03/19 20:27 Trusopt BOTH EYES 1 drops BID BR[facility] Administration Hydralazine HCl 100 mg 03/02/19 11:30 03/03/19 20:27 Apresoline PO 100 mg BID BR[facility] Administration Amiodarone HCl 360 mg/ 200 mls @ 33.333 mls/hr 03/04/19 02:30 03/04/19 02:24 Dextrose/Water IV 03/04/19 08:29 1 mg/min .Q6H ONE 33.333 mls/hr Administration Protocol 1 MG/MIN Latanoprost 1 drops 03/01/19 21:00 03/03/19 20:27 Xalatan 0.005% BOTH EYES 1 drops HS BR[facility] Administration Levofloxacin 250 mg 03/04/19 14:00 Levaquin PO Q48H [facility] Morphine Sulfate 4 mg 03/01/19 03:49 03/01/19 13:01 Morphine Sulfate (Inj) IV 4 mg Q4HR PRN Administration Severe Pain Naloxone HCl 0.2 mg 03/01/19 03:49 Narcan IV Q2M PRN Opioid Reversal Ondansetron HCl 4 mg 03/01/19 08:23 03/02/19 03:32 Zofran PO 4 mg Q8HR PRN Administration Nausea And Vomiting Pantoprazole Sodium 40 mg 03/04/19 07:30 03/04/19 07:04 Protonix PO 40 mg AC-BRKFST [facility] Administration Prednisone 20 mg 03/02/19 21:00 03/03/19 20:27 PO 20 mg BID BR[facility]TON Administration Tramadol HCl 50 mg 03/01/19 17:01 Ultram PO 03/04/19 17:02 TID PRN Analgesia Warfarin Sodium 5 mg 03/03/19 18:00 03/03/19 19:55 Coumadin PO 5 mg DAILY@1800 [facility] Administration Intake and Output 03/03/19 03/04/19 03/04/19 22:59 06:59 14:59 Intake Total 180 40 5 Output Total 3065 50 12 Balance -2885 -10 -7 Intake: IV 180 40 5 Amiodarone 360 mg In 165 Dextrose 5% in Water 200 ml @ 1 MG/MIN 33.333 mls/ hr IV .Q6H ONE Rx#: [id number] NaCl 0.9 15 40 5 Output: Urine 65 50 12 Other 3000 Other: Voiding Method Indwelling Catheter Indwelling Catheter Weight 88.1 kg 03/04/19 04:32 03/04/19 04:32
[2019-03-04] MEDS: predniSONE 20 MG TAB PO SCH ×2 (08:19→21:35)
[2019-03-04] MEDS: hydrALAZINE HCL 50 MG TAB PO SCH ×2 (08:19→21:35)
[2019-03-04] MEDS: DORZOLAMIDE HCL 2% DROPS 10 ML BTL BOTH EYES SCH ×2 (08:19→21:34)
--- NOTE | 2019-03-04 08:56 | XR ---
EXAMINATION TYPE: XR chest 1V portable DATE OF EXAM: 03/04/2019 COMPARISON: 03/03/2019 INDICATION: Adventitious lung sounds TECHNIQUE: Frontal and lateral views of the chest are obtained. FINDINGS: The heart size is enlarged. The pulmonary vasculature is normal. Small right and small to moderate left lung infiltrates and/or effusions are present. Findings are st able from comparison. IMPRESSION: 1. Cardiomegaly. 2. Bibasilar infiltrates and/or pleural effusions larger on the left, stable from comparison. 3. Continued follow-up is recommended.
--- NOTE | 2019-03-04 10:26 | PN ---
PROGRESS NOTE PULMONARY CRITICAL CARE PROGRESS NOTE: DATE OF SERVICE: 03/04/2019 This is a 73-year-old black male admitted to the hospital on March 01 for acute renal failure. The patient was found to have bilateral pleural effusions and had a left thoracentesis on March 03the from my partner where 1.35 L of fluid was removed. Hemodialysis catheter was placed a couple days ago. He had hemodialysis the last couple of days. There may be hemodialysis planned for today. The hemodialysis took place on March 02 and . Currently, the patient seemed to be resting comfortably. He feels much improved. He is on O2 at 4 L by nasal cannula. He is not getting any IV fluids other than saline at KVO. He is getting amiodarone at 1 mg/minute for atrial fibrillation with RVR. Pleural fluid cytology is currently pending. His chest x-ray from 6:00 this morning shows cardiomegaly and bilateral effusions. This is after the thoracentesis was done yesterday. The patient denies any pain. No fever or chills. No cough or phlegm production. His medical problems include bilateral pleural effusions status post thoracentesis, interstitial nephritis, paroxysmal atrial fibrillation with RVR, stage 3 chronic kidney disease, acute urinary tract infection, prostate cancer, status post robotic prostatectomy by Dr. Nando Ramirez, benign essential hypertension, hyperlipidemia, glaucoma, colon cancer, anion gap metabolic acidosis, anemia of chronic disease, hyperphosphatemia, generalized weakness in the left-sided thoracentesis. PHYSICAL EXAMINATION: VITAL SIGNS: Current vital signs are reviewed. Temperature is 98.7, heart rate 84, respiratory rate 20, blood pressure 166/72, mean 103 and saturations on 4 L are between 93% and 95%. He appears in no acute distress. Certainly no respiratory distress. No audible wheezing, use of accessory muscles or conversational dyspnea noted. HEENT: Examination is grossly unremarkable. Nasal O2 noted. NECK: Supple. Full range of motion. No adenopathy, thyromegaly or neck vein distention. CARDIOVASCULAR: Examination reveals regular rhythm and rate. Heart rate in the high 70s, low 80s. Appears to be in sinus rhythm. S1, S2 normal. No S3 or S4. LUNGS: Reveal a few scattered rhonchi. There are some bibasilar crackles. No wheezes. Breath sounds equal bilaterally. ABDOMEN: Soft. Bowel sounds are heard. EXTREMITIES are intact. No cyanosis, clubbing, or edema. SKIN: Without rash. NEUROLOGIC: Examination is brief but nonfocal. LABS: Labs are reviewed. White count 13.3, hemoglobin 7, hematocrit 23.8, platelet count 517,000. Sodium 130, potassium 4.6, chloride 92, CO2 is 23 and anion gap 15. BUN and creatinine were 72 and 10.55 compared to 98 and 14.35 yesterday. Calcium 8, phosphorus 7, and magnesium 1.9. The rest of the labs are reviewed. The urine showed 2+ protein, moderate blood, large leukocyte esterase, greater than 182 RBCs, greater than 182 WBCs, many WBC clumps and moderate bacteria. The pleural fluid analysis is currently pending. Microbiology is thus far pending or negative. Chest x-ray shows bilateral effusions. MEDICATIONS: Medications are reviewed. Currently, his medications include Lipitor, eye drops, Apresoline, DuoNeb, Levaquin, morphine, Narcan, Zofran, Protonix, prednisone and Coumadin. ASSESSMENT: 1. Acute bilateral pleural effusions, left greater than right, causing hypoxemia, secondary to acute on chronic kidney injury. 2. Possible interstitial nephritis. 3. Paroxysmal atrial fibrillation with rapid ventricular response. 4. Stage 3 chronic kidney disease. 5. Acute urinary tract infection. 6. Status post robotic prostatectomy, October 2017, for prostate cancer. 7. Benign essential hypertension. 8. Hyperlipidemia. 9. Glaucoma. 10.History of colon cancer. 11.Anion gap metabolic acidosis, secondary to renal failure. 12.Anemia of chronic disease. 13.Hyperphosphatemia, secondary to renal failure. 14.Generalized weakness. 15.Status post left-sided thoracentesis with 1.35 L removed on March 03. PLAN: Overall, the patient is doing reasonably well. I will hold off on doing another thoracentesis. Will await additional hemodialysis. He remains on amiodarone at 1 mg/minute. He is not getting any excessive superfluous or extraneous fluid. Respiratory status is stable. Hemodynamically, he is stable. No additional recommendations are made. We will continue to follow. Medications are appropriate. MMODL / IJN: [id number] /
[2019-03-04 11:59] LABS: DNA Double-Stranded Indetermin (NEGATIVE)
--- NOTE | 2019-03-04 12:02 | PN ---
PROGRESS NOTE Patient is seen for followup for acute kidney injury. He was admitted to the hospital with a creatinine of around 18. Patient has been dialyzed two days in a row. He was also volume overloaded. Urine output has been about 10 mL an hour. Patient will be dialyzed again today. He states he is feeling better. There was concern for possible interstitial nephritis and patient has been started on prednisone. PHYSICAL EXAMINATION: Blood pressure was 115/70, heart rate 76 per minute. Patient is afebrile. Examination of the heart S1, S2. Examination of the lungs, bilateral breath sounds are heard. Abdomen is soft, nontender. Examination of the lower extremities shows edema 1+ bilaterally. [employer] exam is grossly intact. LABS: Shows sodium 130, potassium 4.6, chloride 92, BUN 72, serum creatinine 10.5, hemoglobin 7.0 g/dL. ASSESSMENT: 1. Acute kidney injury. Possible acute interstitial nephritis. Urine is eosinophil gram-negative. Patient is maintained on prednisone. He will receive his third treatment of hemodialysis today. 2. Volume overload, currently improved. 3. Pleural effusion, status post thoracentesis. 4. Chronic kidney disease, baseline creatinine about 1.4 mg/dL and NKF stage III. 5. Hyperphosphatemia from advanced renal failure. 6. Anion gap metabolic acidosis with a component of metabolic alkalosis, improved post dialysis. 7. Hemodialysis today and repeat again in a.m. Continue with the prednisone. Repeat labs in a.m.. RUDY / ROBERT: [id number] /
[2019-03-04] MEDS ORDERED: AMIODARONE 360 MG in DEXTROSE 5% IN WATER 200 ML IV ONE ×2 (13:38)
[2019-03-04 14:33] LABS: Total Protein, Body Fluid 3600 mg/dL
[2019-03-04] MEDS: LEVOFLOXACIN 250 MG TAB PO SCH (15:12)
--- NOTE | 2019-03-04 15:27 | P.PN ---
Subjective This is Rach Banuelos PA-C dictating a progress note on this patient The patient was interviewed and examined by me as well as by Dr. Marquez Case discussed with Dr. Marquez and he agrees with the plan of care IMPRESSION / ASSESSMENT: Paroxysmal atrial fibrillation, rate, on anticoagulation with warfarin Acute renal failure requiring dialysis Anasarca with pleural and pericardial effusions, status post pleurocentesis Anemia Hypertension Dyslipidemia PLAN: Discontinue IV amiodarone, switch to oral amiodarone 200 mg twice a day Continue anticoagulation with warfarin, monitor for signs of bleeding HPI/interval history She is a 73-year-old male who presented with shortness of breath and was found to have acute renal failure, anemia, and anasarca with pleural and pericardial effusion. He was started on dialysis and underwent pleurocentesis. Patient seen and examined resting comfortably in his chair. States his breathing is improved. Denies any chest pain or palpitations. Was able to get up from the vaginal chair without getting dizzy. Denies black tarry stools, hematochezia, or hematemesis. EXAMINATION Patient is afebrile, pulse 80, respirations 17, blood pressure 151/66, oxygen saturation 95% on 4 L nasal cannula Patient seen and examined resting comfortably in his chair Breath sounds mildly diminished bilaterally Heart rate regular, no murmurs appreciated Mild lower extremity edema REVIEW OF LABS, ECG WBC 13.3, hemoglobin 7.0, potassium 4.6, BUN 72, creatinine 10.55 Rhythm strips reveal sinus rhythm, no arrhythmias noted overnight Objective - Vital Signs Vital signs: Vital Signs Temp 97.9 F 03/04/19 12:00 Pulse 78 03/04/19 15:09 Resp 16 03/04/19 15:09 BP 136/66 03/04/19 15:00 Pulse Ox 95 03/04/19 15:00 Intake & Output 03/03/19 03/04/19 03/04/19 18:59 06:59 18:59 Intake Total 397.65 55 230 Output Total 3125 85 76 Balance -8097.35 -30 154 Weight 88.1 kg Intake: IV 397.65 55 30 Amiodarone 360 mg In 397.65 Dextrose 5% in Water 200 ml @ 1 MG/MIN 33.333 mls/ hr IV .Q6H ONE Rx#: [id number] NaCl 0.9 55 30 Intake, IV Titration 200 Amount Amiodarone 360 mg In 200 Dextrose 5% in Water 200 ml @ 1 MG/MIN 33.333 mls/ hr IV .Q6H ONE Rx#: [id number] Output: Urine 125 85 76 Other 3000 Other: Voiding Method Indwelling Catheter Indwelling Catheter Indwelling Catheter - Labs CBC & Chem 7: 03/04/19 04:32 03/04/19 04:32 Labs: Abnormal Lab Results - Last 24 Hours (Table) 03/02/19 03/04/19 03/04/19 Range/Units 13:34 04:32 04:32 WBC 13.3 H (3.8-10.6) k/uL RBC 2.70 L (4.30-5.90) m/uL Hgb 7.0 L (13.0-17.5) gm/dL Hct 23.8 L (39.0-53.0) % MCHC 29.6 L (31.0-37.0) g/dL Plt Count 517 H (150-450) k/uL Neutrophils # 12.5 H (1.3-7.7) k/uL Lymphocytes # 0.2 L (1.0-4.8) k/uL Sodium 130 L (137-145) mmol/L Chloride 92 L (98-107) mmol/L BUN 72 H (9-20) mg/dL Creatinine 10.55 H* (0.66-1.25) mg/dL Glucose 163 H (74-99) mg/dL Calcium 8.0 L (8.4-10.2) mg/dL Phosphorus 7.0 H (2.5-4.5) mg/dL LYLA Screen POSITIVE H (NEGATIVE) Double Strand DNA Ab Indetermin H (NEGATIVE) Microbiology - Last 24 Hours (Table) 03/01/19 09:38 Blood Culture - Preliminary Blood No Growth after 72 hours 03/03/19 09:38 Gram Stain - Preliminary Thoracic Fluid Body Fluid Culture - Preliminary 03/03/19 09:38 Fungal Culture - Preliminary Thoracic Fluid 03/03/19 09:38 Acid Fast Bacilli Culture - Preliminary Thoracic Fluid
--- NOTE | 2019-03-04 15:50 | PN ---
PROGRESS NOTE DATE OF SERVICE: 03/03/2019 CHIEF COMPLAINT: Acute anuric renal failure. HISTORY OF PRESENT ILLNESS: This gentleman is feeling a little bit better. He seems a little bit more alert. He has been being dialyzed. REVIEW OF SYSTEMS: He denies any confusion, change in vision or hearing, shortness of breath, chest pain, abdominal pain, nausea, vomiting, etc. PHYSICAL EXAMINATION: Head ears, eyes, nose, mouth and throat are normal and neck veins are not distended. His chest is clear. Cardiac exam demonstrates sinus rhythm. The abdomen is slightly protuberant, soft, nontender, without masses. Extremities are normal. Neurologically he is intact. IMPRESSION: 1. Acute anuric renal failure. 2. History of carcinoma of the prostate. 3. Hypertension. PLAN: No change in program. He will continue to be dialyzed until he is stable. He is not making any urine, unfortunately. MMODL / IJN: [id number] /
[2019-03-04] MEDS: WARFARIN 5 MG TAB PO SCH (17:28)
--- NOTE | 2019-03-04 18:19 | PN ---
PROGRESS NOTE CHIEF COMPLAINT: Acute renal failure. HISTORY OF PRESENT ILLNESS: This gentleman is stable and doing a little bit better. He is up in a chair. Continues to be dialyzed. He is not making any urine. REVIEW OF SYSTEMS: He denies any nausea, itching, chest pain, shortness of breath, etc. PHYSICAL EXAMINATION: Vital signs are normal. Head, ears, eyes, nose, mouth and throat are normal. Chest is clear. Cardiac exam is normal. The abdomen is slightly protuberant and soft. He is not tender. IMPRESSION: 1. Acute renal failure. 2. History of hypertension. PLAN: Continue with dialysis and wait to assess response of his kidneys and kidney function. MMODL / IJN: [id number] /
[2019-03-04] MEDS: ATORVASTATIN 40 MG TAB PO SCH (21:35)
[2019-03-04] MEDS: LATANOPROST 0.005% OPHTH DROPS 2.5 ML BTL BOTH EYES SCH (21:35)
[2019-03-04] MEDS: AMIODARONE 200 MG TAB PO SCH (21:35)
[2019-03-05 05:18] LABS: Basophils % (A) 0 %; Eosinophils % (A) 0 %; HCT 23.2 % (39.0-53.0); HGB 7.2 gm/dL (13.0-17.5); Lymphocytes # (A) 0.2 k/uL (1.0-4.8); Lymphocytes % (A) 1 %; MCH 27.3 pg (25.0-35.0); MCHC 30.9 g/dL (31.0-37.0); MCV 88.5 fL (80.0-100.0); Mean Platelet Volume 6.7; Monocytes # (A) 0.6 k/uL (0-1.0); Monocytes % (A) 4 %; Neutrophils # (A) 14.2 k/uL (1.3-7.7); Neutrophils % (A) 94 %; Platelet Count 492 k/uL (150-450); RBC 2.62 m/uL (4.30-5.90); RDW 14.8 % (11.5-15.5); WBC 15.1 k/uL (3.8-10.6)
[2019-03-05 05:24] LABS: INR 1.3 (<1.2); Prothrombin Time 13.5 sec (9.0-12.0)
[2019-03-05 05:27] LABS: Calcium 8.2 mg/dL (8.4-10.2); Phosphorus 4.9 mg/dL (2.5-4.5); Potassium 4.8 mmol/L (3.5-5.1)
--- NOTE | 2019-03-05 06:58 | XR ---
EXAMINATION TYPE: XR chest 1V portable DATE OF EXAM: 03/05/2019 CLINICAL HISTORY: Difficulty breathing progress study. TECHNIQUE: Single AP portable upright view of the chest is obtained. COMPARISON: Chest x-ray from one day earlier and older studies. FINDINGS: There is persistent cardiomegaly with left greater than right bibasilar opacities and cent ral vascular congestion. Upper lungs remain clear without pneumothorax. Osseous structures are intact . IMPRESSION: Overall stable findings, suspect CHF exacerbation as there is cardiomegaly with central vascular congestion and small to moderate left greater than right pleural effusions with associated left basilar atelectasis and/or infiltrate all redemonstrated.
[2019-03-05] MEDS: PANTOPRAZOLE 40 MG TABLET PO SCH (07:13)
[2019-03-05] MEDS: IPRATROPIUM-ALBUTEROL 3 ML NEB INHALATION SCH ×4 (07:36→18:57)
[2019-03-05] MEDS: hydrALAZINE HCL 50 MG TAB PO SCH (09:17)
[2019-03-05] MEDS: AMIODARONE 200 MG TAB PO SCH ×2 (09:17→21:27)
[2019-03-05] MEDS: predniSONE 20 MG TAB PO SCH ×2 (09:18→21:27)
[2019-03-05] MEDS: DORZOLAMIDE HCL 2% DROPS 10 ML BTL BOTH EYES SCH ×2 (09:29→21:27)
--- NOTE | 2019-03-05 09:35 | P.PN ---
Subjective Progress Note Date: 03/05/19 Principal diagnosis: Acute on chronic renal failure, bilateral pleural effusions secondary to SHAYNA This 73-year-old -Fil[place] male patient of Dr. Ortiz, who presented to the emergency department on 03/01/2019 with complaints of left shoulder pain, not feeling well, decreased appetite, nausea vomiting. Apparently there was a recent outpatient chest x-ray done showing a large-sized left pleural effusion. Patient was taking Aleve for his left shoulder pain, denied any injury, or trauma to his left shoulder. Denied any chest pain, cough or congestion, his any abdominal pain, although does admit to being nauseous. Passing normal bowel movements. Patient has a history of hypertension, hyperlipidemia, chronic kidney disease stage III, slight creatinine of 1.4 mg/dL, 2 of colon cancer, glaucoma, BPH, history of previous nicotine dependence. No history of drug a buse or alcohol abuse. Chest x-ray was completed showing moderate sized left pleural effusion, adjacent atelectasis, and minor right basilar opacity with atelectasis/infiltrate. He megaly and mild pulmonary vascular congestion. EKG shows sinus rhythm with PAC. CT of the chest was completed showing moderate to large size pericardial effusion, and small to moderate size left greater than right pleural effusions with associated left basilar atelectasis. There is volume loss in the right side of unknown etiology. Echocardiogram was completed showing moderate concentric left ventricular hypertrophy with hyperdynamic left ventricle systolic function with an EF of greater than 70%, mild aortic stenosis, no pulmonary hypertension, and does moderate generalized pericardial effusion. Blood work showed significant increase in patient's creatinine from his baseline, at 18.4, with BUN of 133, serum sodium is 133, potassium is 4.7, chloride was 95, CO2 was 16, troponin was negative, proBNP was at 7940, liver enzymes were within normal limits, white blood cell count of 14.7, hemoglobin of 7.8, platelet count was 537, coordination profile was within normal limits, urinalysis showed 2+ protein, large amount of leuk trase, large amount of PRBCs and large amount of WBCs with many WBC clumps and urine bacteria. Patient is currently sitting up in the chair, in no acute distress, he denies any shortness of breath, room air pulse ox is 92%, denies any chest pain, he is afebrile, respirations are nonlabored, lung sounds reveal diminished breath sounds on the left, patient is having emergent temporary hemodialysis catheter inserted sometime this afternoon with urgent hemodialysis. The patient is seen today 03/02/2019 in follow-up on the selective care unit. He did not receive dialysis yesterday. He did go down for a right femoral dialysis catheter placement this morning. He is to receive dialysis today. He is awake and alert. Resting fairly comfortably in bed. Maintaining O2 saturations in the 90s on room air. He's had a low-grade temperature. Hypertensive. Urine culture pending. White count 12.1. Hemoglobin 7.9. BUN 137. Creatinine 18.33. Patient was reevaluated today on 03/03/2019, patient was transferred yesterday to the intensive care unit, mostly because of intermittent episodes of atrial fibrillation and RVR, he was placed on amiodarone drip, and on heparin, the nurse taking care of the patient was having difficulty with venous access, hence the patient was transferred to the ICU, he already had an external jugular venous line placed by nurse practitioner, and apparently one of the lines in the dialysis catheter could be used for infusion purposes if needed. That did not need to be used and overnight the patient was switched from IV heparin to L ovenox, and we recommended that he remains on amiodarone drip. Today the patient will be placed on Coumadin, and the Lovenox will be discontinued altogether. I did perform a left-sided thoracentesis, and 1350 mL of fluid drained from the left pleural space. Patient is presently in sinus rhythm, on amiodarone drip, hemodynamically stable, and in no distress. His labs today showed a low hemoglobin of 7.7 WBC count is 11.1. BUN is 98 creatinine 14.35, I believe the patient will dialyzed again today. Patient has a baseline creatinine of 1.4 however on this admission he obviously sustained acute on chronic kidney injury. Apparently the patient has been taking nonsteroidal and the inflammatory medications, and he presented with intermittent episodes of nausea vomiting and diarrhea. His urinalysis was suggestive of interstitial nephritis hence nephrology recommended starting the patient on prednisone 20 mg twice a day. On 03/05/2019 patient seen again in the intensive care unit, he is awake and alert, currently down to 3 L of oxygen, pulse ox on 4 L of oxygen was 96%, he is breathing easier, no compressive chest pain, today's chest x-ray has been reviewed showing left greater than right bibasilar opacities and central vascular congestion. Patient is status post left thoracentesis on 03/02/2019 would removal of 1350 ML of pleural fluid, and the pleural fluid analysis showed exudative fluid. Blood culture showed no growth, pleural fluid culture showed no growth after 24 hours, fungal culture is pending. Cytology is pending. Patient had hemodialysis yesterday, with removal of 3 L of fluid, another hemodialysis treatment is pending today. Today's labs have been reviewed, showing white blood cell count of 15.1, hemoglobin of 7.2, platelet count of 492, INR is 1.3, sodium is 135, potassium is 4.8, chloride is 99, CO2 is 23, BUN is 51, creatinine is 8.25. No acute complaints, no cough or congestion. Lung sounds are positive for diminished breath sounds at the bases, and scattered rales Objective - Vital Signs Vital signs: Vital Signs Temp 98.3 F 03/05/19 08:00 Pulse 96 03/05/19 09:00 Resp 14 03/05/19 09:00 BP 140/63 03/05/19 09:00 Pulse Ox 95 03/05/19 09:00 Intake & Output 03/04/19 03/05/19 03/05/19 18:59 06:59 18:59 Intake Total 252 1310 240 Output Total 122 3545 40 Balance 130 -2235 200 Weight 92.3 kg Intake: IV 52 0.9 Normal Saline at 5ml/ 52 hr Intake, IV Titration 200 Amount Amiodarone 360 mg In 200 Dextrose 5% in Water 200 ml @ 1 MG/MIN 33.333 mls/ hr IV .Q6H ONE Rx#: [id number] Oral 810 240 Hemodialysis 500 Output: Urine 122 45 40 Hemodialysis 3500 Other: Voiding Method Indwelling Catheter Indwelling Catheter Indwelling Catheter - Exam GENERAL EXAM: Alert, pleasant, 73-year-old white male on 3 L of oxygen, comfortable in no apparent distress. HEAD: Normocephalic/atraumatic. EYES: Normal reaction of pupils, equal size. Conjunctiva pink, sclera white. NOSE: Clear with pink turbinates. THROAT: No erythema or exudates. NECK: No masses, no JVD, no thyroid enlargement, no adenopathy. CHEST: No chest wall deformity. Symmetrical expansion. LUNGS: Equal air entry with diminished breath sounds, with basilar rales CVS: Regular rate and rhythm, normal S1 and S2, no gallops, no murmurs, no rubs ABDOMEN: Soft, nontender. No hepatosplenomegaly, normal bowel sounds, no guarding or rigidity. EXTREMITIES: No clubbing, trace pretib edema, no cyanosis, 2+ pulses and upper and lower extremities. Right groin hemodialysis cath present MUSCULOSKELETAL: Muscle strength and tone normal. SPINE: No scoliosis or deformity SKIN: No rashes CENTRAL NERVOUS SYSTEM: Alert and oriented -3. No focal deficits, tone is normal in all 4 extremities. PSYCHIATRIC: Alert and oriented -3. Appropriate affect. Intact judgment and insight. - Labs CBC & Chem 7: 03/05/19 04:31 03/05/19 04:31 Labs: Abnormal Lab Results - Last 24 Hours (Table) 03/02/19 03/05/19 03/05/19 Range/Units 13:34 04:31 04:31 WBC 15.1 H (3.8-10.6) k/uL RBC 2.62 L (4.30-5.90) m/uL Hgb 7.2 L (13.0-17.5) gm/dL Hct 23.2 L (39.0-53.0) % MCHC 30.9 L (31.0-37.0) g/dL Plt Count 492 H (150-450) k/uL Neutrophils # 14.2 H (1.3-7.7) k/uL Lymphocytes # 0.2 L (1.0-4.8) k/uL PT (9.0-12.0) sec INR (<1.2) Sodium 135 L (137-145) mmol/L BUN 51 H (9-20) mg/dL Creatinine 8.25 H* (0.66-1.25) mg/dL Glucose 138 H (74-99) mg/dL Calcium 8.2 L (8.4-10.2) mg/dL Phosphorus 4.9 H (2.5-4.5) mg/dL LYLA Screen POSITIVE H (NEGATIVE) Double Strand DNA Ab Indetermin H (NEGATIVE) 03/05/19 Range/Units 04:31 WBC (3.8-10.6) k/uL RBC (4.30-5.90) m/uL Hgb (13.0-17.5) gm/dL Hct (39.0-53.0) % MCHC (31.0-37.0) g/dL Plt Count (150-450) k/uL Neutrophils # (1.3-7.7) k/uL Lymphocytes # (1.0-4.8) k/uL PT 13.5 H (9.0-12.0) sec INR 1.3 H (<1.2) Sodium (137-145) mmol/L BUN (9-20) mg/dL Creatinine (0.66-1.25) mg/dL Glucose (74-99) mg/dL Calcium (8.4-10.2) mg/dL Phosphorus (2.5-4.5) mg/dL LYLA Screen (NEGATIVE) Double Strand DNA Ab (NEGATIVE) Microbiology - Last 24 Hours (Table) 03/03/19 09:38 Acid Fast Bacilli Smear - Final Thoracic Fluid Acid Fast Bacilli Culture - Preliminary 03/01/19 09:38 Blood Culture - Preliminary Blood No Growth after 72 hours 03/03/19 09:38 Gram Stain - Preliminary Thoracic Fluid Body Fluid Culture - Preliminary Assessment and Plan Plan: Assessment: Acute bilateral pleural effusions left greater than right, most likely secondary to acute on chronic kidney injury. Status post left-sided thoracentesis on 03/03/2019 would removal of 1350 mL of pleural fluid, exudative based on pleural fluid analysis, cytology pending, pleural fluid cultures are pending so far no growth on the Gram stain Possible interstitial nephritis based on the urinalysis, patient was started empirically on prednisone by nephrology. Paroxysmal atrial fibrillation with RVR, relatively normal echocardiogram, patient is presently on amiodarone, and he is in sinus rhythm. History of Chronic kidney disease stage III Acute urinary tract infection History of prostate cancer previous robotic prostatectomy. In October of 2017. Benign essential hypertension Hyperlipidemia Glaucoma History of colon cancer Anion gap metabolic acidosis Anemia of chronic kidney disease Hyperphosphatemia secondary to renal failure Generalized weakness Plan: Continue current treatment, patient will have another hemodialysis treatment today, today's chest x-ray has been reviewed, still showing left greater than right pleural effusions, and central vascular congestion, patient is asymptomatic, no worsening shortness of breath, actually weaning oxygen down, follow-up chest x-ray tomorrow morning, no plans for repeat thoracentesis at this time. Patient remains in sinus rhythm, cardiology is following, has been transitioned to oral amiodarone, continue with current antibiotic therapy, continue with anticoagulation. Patient is stable to transfer out of the intensive care unit today to [facility] care. I performed a history & physical examination of the patient and discussed their management with my nurse practitioner, Nia Rojas. I reviewed the nurse practitioner's note and agree with the documented findings and plan of care. Lung sounds are positive for diminished breath sounds. The findings and the impression was discussed with the patient. I attest to the documentation by the nurse practitioner. Time with Patient: Less than 30
[2019-03-05] MEDS ORDERED: DESMOPRESSIN ACETATE 28 MCG in SODIUM CHLORIDE 0.9% 50 ML IVPB ONE (11:33)
--- NOTE | 2019-03-05 11:33 | P.PN ---
Subjective Patient is seen in follow-up for acute kidney injury. He is currently hemodialysis dependent. He remains nonoliguric. He was started on prednisone on March 02 for presumed interstitial nephritis. Denies active chest pain or shortness of breath. Currently resting in bed. Vital signs are stable. General: The patient appeared well nourished and normally developed. HEENT: Head exam is unremarkable. Neck is without jugular venous distension. LUNGS: Lungs are clear to auscultation and percussion. Breath sounds decreased. HEART: Rate and Rhythm are regular. First and second heart sounds normal. No murmurs, rubs or gallops. ABDOMEN: Abdominal exam reveals normal bowel sounds. Non-tender and non- distended. EXTREMITITES: 1+ edema. Objective - Vital Signs Vital signs: Vital Signs Temp 98.3 F 03/05/19 08:00 Pulse 94 03/05/19 11:00 Resp 14 03/05/19 09:00 BP 140/63 03/05/19 09:00 Pulse Ox 95 03/05/19 09:00 Intake & Output 03/04/19 03/05/19 03/05/19 18:59 06:59 18:59 Intake Total 252 1310 240 Output Total 122 3545 40 Balance 130 -2235 200 Weight 92.3 kg Intake: IV 52 0.9 Normal Saline at 5ml/ 52 hr Intake, IV Titration 200 Amount Amiodarone 360 mg In 200 Dextrose 5% in Water 200 ml @ 1 MG/MIN 33.333 mls/ hr IV .Q6H ONE Rx#: [id number] Oral 810 240 Hemodialysis 500 Output: Urine 122 45 40 Hemodialysis 3500 Other: Voiding Method Indwelling Catheter Indwelling Catheter Indwelling Catheter - Labs CBC & Chem 7: 03/05/19 04:31 03/05/19 04:31 Labs: Abnormal Lab Results - Last 24 Hours (Table) 03/02/19 03/05/19 03/05/19 Range/Units 13:34 04:31 04:31 WBC 15.1 H (3.8-10.6) k/uL RBC 2.62 L (4.30-5.90) m/uL Hgb 7.2 L (13.0-17.5) gm/dL Hct 23.2 L (39.0-53.0) % MCHC 30.9 L (31.0-37.0) g/dL Plt Count 492 H (150-450) k/uL Neutrophils # 14.2 H (1.3-7.7) k/uL Lymphocytes # 0.2 L (1.0-4.8) k/uL PT (9.0-12.0) sec INR (<1.2) Sodium 135 L (137-145) mmol/L BUN 51 H (9-20) mg/dL Creatinine 8.25 H* (0.66-1.25) mg/dL Glucose 138 H (74-99) mg/dL Calcium 8.2 L (8.4-10.2) mg/dL Phosphorus 4.9 H (2.5-4.5) mg/dL LYLA Screen POSITIVE H (NEGATIVE) Double Strand DNA Ab Indetermin H (NEGATIVE) 03/05/19 Range/Units 04:31 WBC (3.8-10.6) k/uL RBC (4.30-5.90) m/uL Hgb (13.0-17.5) gm/dL Hct (39.0-53.0) % MCHC (31.0-37.0) g/dL Plt Count (150-450) k/uL Neutrophils # (1.3-7.7) k/uL Lymphocytes # (1.0-4.8) k/uL PT 13.5 H (9.0-12.0) sec INR 1.3 H (<1.2) Sodium (137-145) mmol/L BUN (9-20) mg/dL Creatinine (0.66-1.25) mg/dL Glucose (74-99) mg/dL Calcium (8.4-10.2) mg/dL Phosphorus (2.5-4.5) mg/dL LYLA Screen (NEGATIVE) Double Strand DNA Ab (NEGATIVE) Microbiology - Last 24 Hours (Table) 03/03/19 09:38 Acid Fast Bacilli Smear - Final Thoracic Fluid Acid Fast Bacilli Culture - Preliminary 03/01/19 09:38 Blood Culture - Preliminary Blood No Growth after 72 hours 03/03/19 09:38 Gram Stain - Preliminary Thoracic Fluid Body Fluid Culture - Preliminary Assessment and Plan Plan: Assessment: 1. Acute kidney injury. There is concern for underlying GN. He is noted to be LYLA positive and indeterminate double-stranded DNA. Urine eosinophils negative. He has sub-nephrotic range proteinuria. He was started on prednisone on March 02 for presumed interstitial nephritis. Currently hemodialysis dependent. Last treatment was yesterday. 2. Pleural effusions status post left-sided thoracentesis with 1.3 L drained. 3. A. fib maintained on oral amiodarone and Coumadin. 4. Hyperphosphatemia secondary to acute kidney injury. Improved with dialysis. 5. Chronic kidney disease stage III with baseline creatinine in the range of 1.3-1.5. Plan: Check complement levels and anca tities. Scheduled for kidney biopsy. I will give him a dose of IV DDAVP one hour prior to kidney biopsy. Lasix 80 mg IV once today. Hemodialysis tomorrow. Continue to monitor renal function and urine output.
[2019-03-05 11:38] LABS: ANA Pattern Homogeneous
--- NOTE | 2019-03-05 12:57 | PN ---
PROGRESS NOTE DATE OF SERVICE: 03/05/2019 CHIEF COMPLAINT: Acute renal failure. HISTORY OF PRESENT ILLNESS: This gentleman is stable and awake and alert. Continues to be dialyzed daily. He is not making any significant amounts of urine. REVIEW OF SYSTEMS: He denies any headaches, chest pain, shortness of breath, abdominal pain, itching, etc. PHYSICAL EXAM: Chest is clear. Cardiac exam is unremarkable and he is currently in sinus rhythm. Abdomen is soft, nontender. Extremities are normal. Neurologically, he is intact. IMPRESSION: 1. Acute renal failure. 2. Left pleural effusion. 3. Pericardial effusion. 4. Episode of atrial fibrillation. 5. Positive antinuclear antibody. PLAN: Continue with diuresis. Given the positive LYLA, it might be a consideration to stop the hydralazine. MMODL / IJN: [id number] /
[2019-03-05] MEDS ORDERED: FUROSEMIDE 10 MG/ML 10 ML VIAL IV STA (13:16)
--- NOTE | 2019-03-05 14:05 | P.PN ---
Subjective This is Rach Banuelos PA-C dictating a progress note on this patient The patient was interviewed and examined by me as well as by Dr. Marquez Case discussed with Dr. Marquez and he agrees with the plan of care IMPRESSION / ASSESSMENT: paroxysmal atrial fibrillation, on anticoagulation with warfarin, currently in sinus rhythm Acute renal failure requiring dialysis Anasarca with pleural and pericardial effusions on admission, status post pleurocentesis, improved Anemia Hypertension Dyslipidemia LYLA positive PLAN: Continue amiodarone 200 mg by mouth twice daily stop Hydralazine, start labetalol 100 mg twice a day in the morning, then start Procardia XL 90 mg daily in the afternoon Nephrology plans to do a renal biopsy, hold warfarin and start heparin until biopsy is done HPI/interval history Patient is a 73-year-old male who presented with shortness of breath found to have acute renal failure, anemia, and anasarca with pleural and pericardial effusions. He also had episode of atrial fibrillation with RVR and was started on amiodarone. He has remained in sinus rhythm. Seen and examined resting comfortably in bed. States his breathing is improved. Denies any chest pain, palpitations, lightheadedness, dizziness. EXAMINATION Blood pressure but has been elevated in the 140s to 150s systolic, pulse 94, afebrile, respirations 14, oxygen saturation 95% on 3 L nasal cannula Patient seen and examined resting comfortably in bed Breath sounds mildly diminished but clear bilaterally Heart is regular, soft systolic murmur appreciated No lower extremity edema REVIEW OF LABS, ECG Rhythm strips reveal sinus rhythm, no further episodes of atrial fibrillation or other arrhythmias noted overnight WBC 15.1, hemoglobin 7.2, platelets 492, INR 1.3, sodium 135, potassium 4.8, BUN 51, creatinine 8.25 Positive LYLA Objective - Vital Signs Vital signs: Vital Signs Temp 98.1 F 03/05/19 12:00 Pulse 103 H 03/05/19 12:00 Resp 12 03/05/19 12:00 BP 155/72 03/05/19 12:00 Pulse Ox 97 03/05/19 12:00 Intake & Output 03/04/19 03/05/19 03/05/19 18:59 06:59 18:59 Intake Total 252 1310 480 Output Total 122 8045 57 Balance 130 -2235 423 Weight 92.3 kg Intake: IV 52 0.9 Normal Saline at 5ml/ 52 hr Intake, IV Titration 200 Amount Amiodarone 360 mg In 200 Dextrose 5% in Water 200 ml @ 1 MG/MIN 33.333 mls/ hr IV .Q6H ONE Rx#: [id number] Oral 810 480 Hemodialysis 500 Output: Urine 122 45 57 Hemodialysis 3500 Other: Voiding Method Indwelling Catheter Indwelling Catheter Indwelling Catheter - Labs CBC & Chem 7: 03/05/19 04:31 03/05/19 04:31 Labs: Abnormal Lab Results - Last 24 Hours (Table) 03/05/19 03/05/19 03/05/19 Range/Units 04:31 04:31 04:31 WBC 15.1 H (3.8-10.6) k/uL RBC 2.62 L (4.30-5.90) m/uL Hgb 7.2 L (13.0-17.5) gm/dL Hct 23.2 L (39.0-53.0) % MCHC 30.9 L (31.0-37.0) g/dL Plt Count 492 H (150-450) k/uL Neutrophils # 14.2 H (1.3-7.7) k/uL Lymphocytes # 0.2 L (1.0-4.8) k/uL PT 13.5 H (9.0-12.0) sec INR 1.3 H (<1.2) Sodium 135 L (137-145) mmol/L BUN 51 H (9-20) mg/dL Creatinine 8.25 H* (0.66-1.25) mg/dL Glucose 138 H (74-99) mg/dL Calcium 8.2 L (8.4-10.2) mg/dL Phosphorus 4.9 H (2.5-4.5) mg/dL Microbiology - Last 24 Hours (Table) 03/03/19 09:38 Gram Stain - Preliminary Thoracic Fluid Body Fluid Culture - Preliminary 03/01/19 09:38 Blood Culture - Preliminary Blood No Growth after 96 hours 03/03/19 09:38 Acid Fast Bacilli Smear - Final Thoracic Fluid Acid Fast Bacilli Culture - Preliminary
[2019-03-05] MEDS ORDERED: HEPARIN SODIUM,PORCINE 5,000 UNIT/ML 1 ML VIAL IV PRN (14:07)
[2019-03-05] MEDS ORDERED: HEPARIN SODIUM,PORCINE 5,000 UNIT/ML 1 ML VIAL IV ONE (14:15)
[2019-03-05 14:46] LABS: Basophils % (A) 0 %; Eosinophils % (A) 0 %; HCT 27.1 % (39.0-53.0); HGB 8.4 gm/dL (13.0-17.5); Hypochromasia Slight; Lymphocytes # (A) 0.2 k/uL (1.0-4.8); Lymphocytes % (A) 1 %; MCH 27.1 pg (25.0-35.0); MCHC 31.1 g/dL (31.0-37.0); MCV 87.3 fL (80.0-100.0); Mean Platelet Volume 7.3; Monocytes # (A) 0.9 k/uL (0-1.0); Monocytes % (A) 5 %; Neutrophils # (A) 18.5 k/uL (1.3-7.7); Neutrophils % (A) 94 %; Platelet Count 520 k/uL (150-450); RDW 14.7 % (11.5-15.5); WBC 19.8 k/uL (3.8-10.6)
[2019-03-05 14:55] LABS: INR 1.3 (<1.2); Partial Thromboplastin Time 36.6 sec (22.0-30.0)
[2019-03-05] MEDS: HEPARIN SOD,PORK IN 0.45% NACL 25,000 UNIT in 0.45% NACL 1 250ML.BAG IV SCH (15:15)
[2019-03-05] MEDS ORDERED: hydrALAZINE HCL 50 MG TAB PO SCH (16:00)
[2019-03-05] MEDS: ATORVASTATIN 40 MG TAB PO SCH (21:27)
[2019-03-05] MEDS: LABETALOL 100 MG TAB PO SCH (21:27)
[2019-03-05] MEDS: LATANOPROST 0.005% OPHTH DROPS 2.5 ML BTL BOTH EYES SCH (21:27)
[2019-03-06 04:46] LABS: Basophils % (A) 0 %; Eosinophils % (A) 0 %; HGB 7.3 gm/dL (13.0-17.5); Hypochromasia Slight; Lymphocytes # (A) 0.4 k/uL (1.0-4.8); Lymphocytes % (A) 2 %; MCH 27.7 pg (25.0-35.0); MCHC 31.9 g/dL (31.0-37.0); MCV 86.8 fL (80.0-100.0); Mean Platelet Volume 7.1; Monocytes % (A) 5 %; Neutrophils # (A) 19.6 k/uL (1.3-7.7); Neutrophils % (A) 93 %; Platelet Count 461 k/uL (150-450); RBC 2.65 m/uL (4.30-5.90); RDW 14.6 % (11.5-15.5); WBC 21.2 k/uL (3.8-10.6)
[2019-03-06 05:15] LABS: Calcium 8.2 mg/dL (8.4-10.2); Potassium 4.8 mmol/L (3.5-5.1)
[2019-03-06] MEDS: PANTOPRAZOLE 40 MG TABLET PO SCH (06:36)
[2019-03-06] MEDS: IPRATROPIUM-ALBUTEROL 3 ML NEB INHALATION SCH (07:13)
[2019-03-06] MEDS: AMIODARONE 200 MG TAB PO SCH ×2 (09:14→20:17)
[2019-03-06] MEDS: predniSONE 20 MG TAB PO SCH ×2 (09:14→20:17)
[2019-03-06] MEDS: LABETALOL 100 MG TAB PO SCH ×2 (09:14→20:17)
[2019-03-06] MEDS: DORZOLAMIDE HCL 2% DROPS 10 ML BTL BOTH EYES SCH ×2 (09:14→20:17)
--- NOTE | 2019-03-06 10:00 | P.PN ---
Subjective Patient is seen in follow-up for acute kidney injury. He is currently hemodialysis dependent. He remains nonoliguric. He was started on prednisone on March 02 for presumed interstitial nephritis. Denies active chest pain or shortness of breath. Currently seen while undergoing hemodialysis. Vital signs are stable. General: The patient appeared well nourished and normally developed. HEENT: Head exam is unremarkable. Neck is without jugular venous distension. LUNGS: Lungs are clear to auscultation and percussion. Breath sounds decreased. HEART: Rate and Rhythm are regular. First and second heart sounds normal. No murmurs, rubs or gallops. ABDOMEN: Abdominal exam reveals normal bowel sounds. Non-tender and non- distended. EXTREMITITES: 1+ edema. Objective - Vital Signs Vital signs: Vital Signs Temp 98.6 F 03/06/19 08:00 Pulse 85 03/06/19 08:00 Resp 14 03/06/19 08:00 BP 132/65 03/06/19 08:00 Pulse Ox 93 L 03/06/19 08:00 Intake & Output 03/05/19 03/06/19 03/06/19 18:59 06:59 18:59 Intake Total 870 154.245 510 Output Total 152 100 125 Balance 718 54.245 385 Weight 92 kg Intake: IV 30 30 0.9 NaCl at 10ml/hr 30 30 Intake, IV Titration 154.245 Amount Heparin Sod,Pork in 0.45% 154.245 NaCl 25,000 unit In 0.45 % NaCl 1 250ml.bag @ 10. 834 UNITS/KG/HR 10 mls/hr IV .Q24H [facility] Rx#: [id number] Oral 840 480 Output: Urine 152 100 125 Other: Voiding Method Indwelling Catheter Indwelling Catheter Indwelling Catheter - Labs CBC & Chem 7: 03/06/19 04:25 03/06/19 04:25 Labs: Abnormal Lab Results - Last 24 Hours (Table) 03/05/19 03/05/19 03/05/19 Range/Units 14:23 14:23 19:05 WBC 19.8 H (3.8-10.6) k/uL RBC 3.10 L (4.30-5.90) m/uL Hgb 8.4 L (13.0-17.5) gm/dL Hct 27.1 L (39.0-53.0) % Plt Count 520 H (150-450) k/uL Neutrophils # 18.5 H (1.3-7.7) k/uL Lymphocytes # 0.2 L (1.0-4.8) k/uL PT 13.0 H (9.0-12.0) sec INR 1.3 H (<1.2) APTT 36.6 H 41.7 H (22.0-30.0) sec Sodium (137-145) mmol/L Chloride (98-107) mmol/L Carbon Dioxide (22-30) mmol/L BUN (9-20) mg/dL Creatinine (0.66-1.25) mg/dL Glucose (74-99) mg/dL Calcium (8.4-10.2) mg/dL 03/06/19 03/06/19 03/06/19 Range/Units 04:25 04:25 04:25 WBC 21.2 H (3.8-10.6) k/uL RBC 2.65 L (4.30-5.90) m/uL Hgb 7.3 L (13.0-17.5) gm/dL Hct 23.0 L (39.0-53.0) % Plt Count 461 H (150-450) k/uL Neutrophils # 19.6 H (1.3-7.7) k/uL Lymphocytes # 0.4 L (1.0-4.8) k/uL PT (9.0-12.0) sec INR (<1.2) APTT 41.4 H (22.0-30.0) sec Sodium 131 L (137-145) mmol/L Chloride 95 L (98-107) mmol/L Carbon Dioxide 21 L (22-30) mmol/L BUN 70 H (9-20) mg/dL Creatinine 9.86 H* (0.66-1.25) mg/dL Glucose 141 H (74-99) mg/dL Calcium 8.2 L (8.4-10.2) mg/dL Microbiology - Last 24 Hours (Table) 03/03/19 09:38 Gram Stain - Preliminary Thoracic Fluid Body Fluid Culture - Preliminary 03/01/19 09:38 Blood Culture - Preliminary Blood No Growth after 96 hours Assessment and Plan Plan: Assessment: 1. Acute kidney injury. There is concern for underlying GN. He is noted to be LYLA positive and indeterminate double-stranded DNA. Urine eosinophils negative. He has sub-nephrotic range proteinuria. He was started on prednisone on March 02 for presumed interstitial nephritis. Currently hemodialysis dependent. 2. Pleural effusions status post left-sided thoracentesis with 1.3 L drained. 3. A. fib maintained on oral amiodarone and heparin drip. 4. Hyperphosphatemia secondary to acute kidney injury. Improved with dialysis. 5. Chronic kidney disease stage III with baseline creatinine in the range of 1.3-1.5. Plan: Follow-up complement levels and anca tities. Kidney biopsy scheduled for Monday. I will give him a dose of IV DDAVP one hour prior to kidney biopsy. Lasix 80 mg IV twice daily. Currently seen while undergoing hemodialysis. Next treatment on Monday. Continue to monitor renal function and urine output.
--- NOTE | 2019-03-06 10:08 | P.PN ---
Subjective Progress Note Date: 03/06/19 Principal diagnosis: Acute on chronic renal failure, bilateral pleural effusions secondary to SHAYNA This 73-year-old -[place] male patient of Dr. Ortiz, who presented to the emergency department on 03/01/2019 with complaints of left shoulder pain, not feeling well, decreased appetite, nausea vomiting. Apparently there was a recent outpatient chest x-ray done showing a large-sized left pleural effusion. Patient was taking Aleve for his left shoulder pain, denied any injury, or trauma to his left shoulder. Denied any chest pain, cough or congestion, his any abdominal pain, although does admit to being nauseous. Passing normal bowel movements. Patient has a history of hypertension, hyperlipidemia, chronic kidney disease stage III, slight creatinine of 1.4 mg/dL, 2 of colon cancer, glaucoma, BPH, history of previous nicotine dependence. No history of drug a buse or alcohol abuse. Chest x-ray was completed showing moderate sized left pleural effusion, adjacent atelectasis, and minor right basilar opacity with atelectasis/infiltrate. He megaly and mild pulmonary vascular congestion. EKG shows sinus rhythm with PAC. CT of the chest was completed showing moderate to large size pericardial effusion, and small to moderate size left greater than right pleural effusions with associated left basilar atelectasis. There is volume loss in the right side of unknown etiology. Echocardiogram was completed showing moderate concentric left ventricular hypertrophy with hyperdynamic left ventricle systolic function with an EF of greater than 70%, mild aortic stenosis, no pulmonary hypertension, and does moderate generalized pericardial effusion. Blood work showed significant increase in patient's creatinine from his baseline, at 18.4, with BUN of 133, serum sodium is 133, potassium is 4.7, chloride was 95, CO2 was 16, troponin was negative, proBNP was at 7940, liver enzymes were within normal limits, white blood cell count of 14.7, hemoglobin of 7.8, platelet count was 537, coordination profile was within normal limits, urinalysis showed 2+ protein, large amount of leuk trase, large amount of PRBCs and large amount of WBCs with many WBC clumps and urine bacteria. Patient is currently sitting up in the chair, in no acute distress, he denies any shortness of breath, room air pulse ox is 92%, denies any chest pain, he is afebrile, respirations are nonlabored, lung sounds reveal diminished breath sounds on the left, patient is having emergent temporary hemodialysis catheter inserted sometime this afternoon with urgent hemodialysis. The patient is seen today 03/02/2019 in follow-up on the selective care unit. He did not receive dialysis yesterday. He did go down for a right femoral dialysis catheter placement this morning. He is to receive dialysis today. He is awake and alert. Resting fairly comfortably in bed. Maintaining O2 saturations in the 90s on room air. He's had a low-grade temperature. Hypertensive. Urine culture pending. White count 12.1. Hemoglobin 7.9. BUN 137. Creatinine 18.33. Patient was reevaluated today on 03/03/2019, patient was transferred yesterday to the intensive care unit, mostly because of intermittent episodes of atrial fibrillation and RVR, he was placed on amiodarone drip, and on heparin, the nurse taking care of the patient was having difficulty with venous access, hence the patient was transferred to the ICU, he already had an external jugular venous line placed by nurse practitioner, and apparently one of the lines in the dialysis catheter could be used for infusion purposes if needed. That did not need to be used and overnight the patient was switched from IV heparin to L ovenox, and we recommended that he remains on amiodarone drip. Today the patient will be placed on Coumadin, and the Lovenox will be discontinued altogether. I did perform a left-sided thoracentesis, and 1350 mL of fluid drained from the left pleural space. Patient is presently in sinus rhythm, on amiodarone drip, hemodynamically stable, and in no distress. His labs today showed a low hemoglobin of 7.7 WBC count is 11.1. BUN is 98 creatinine 14.35, I believe the patient will dialyzed again today. Patient has a baseline creatinine of 1.4 however on this admission he obviously sustained acute on chronic kidney injury. Apparently the patient has been taking nonsteroidal and the inflammatory medications, and he presented with intermittent episodes of nausea vomiting and diarrhea. His urinalysis was suggestive of interstitial nephritis hence nephrology recommended starting the patient on prednisone 20 mg twice a day. On 03/05/2019 patient seen again in the intensive care unit, he is awake and alert, currently down to 3 L of oxygen, pulse ox on 4 L of oxygen was 96%, he is breathing easier, no compressive chest pain, today's chest x-ray has been reviewed showing left greater than right bibasilar opacities and central vascular congestion. Patient is status post left thoracentesis on 03/02/2019 would removal of 1350 ML of pleural fluid, and the pleural fluid analysis showed exudative fluid. Blood culture showed no growth, pleural fluid culture showed no growth after 24 hours, fungal culture is pending. Cytology is pending. Patient had hemodialysis yesterday, with removal of 3 L of fluid, another hemodialysis treatment is pending today. Today's labs have been reviewed, showing white blood cell count of 15.1, hemoglobin of 7.2, platelet count of 492, INR is 1.3, sodium is 135, potassium is 4.8, chloride is 99, CO2 is 23, BUN is 51, creatinine is 8.25. No acute complaints, no cough or congestion. Lung sounds are positive for diminished breath sounds at the bases, and scattered rales. On 03/06/2019 patient seen in follow-up in the intensive care unit, he is awake and alert, in no acute distress, he denies any shortness of breath, he is on room air, pulse ox is 93%, hemodynamically stable, afebrile, patient will have a hemodialysis treatment today, was not dialyzed yesterday. Full catheter is in place, and patient is producing an patient is producing some urine. His labs have been reviewed, showing white blood cell count of 21.2, hemoglobin is 7.3, platelet, sore 161, sodium is 131, potassium is 4.8, chloride is 95, CO2 is 21, BUN 70, creatinine is 9.86. No new chest x-ray today. Patient is on Levaquin for acute urinary tract infection, urine culture was negative. No acute events overnight, no specific complaints, no nausea vomiting or diarrhea, no chest pain or shortness of breath, patient is sinus rhythm on the monitor. Heparin drip fo r episode of A. fib RVR, nephrology is pending a kidney biopsy possibly on Monday, pleural fluid cytology is negative. Objective - Vital Signs Vital signs: Vital Signs Temp 98.6 F 03/06/19 08:00 Pulse 85 03/06/19 08:00 Resp 14 03/06/19 08:00 BP 132/65 03/06/19 08:00 Pulse Ox 93 L 03/06/19 08:00 Intake & Output 03/05/19 03/06/19 03/06/19 18:59 06:59 18:59 Intake Total 870 154.245 510 Output Total 152 100 125 Balance 718 54.245 385 Weight 92 kg Intake: IV 30 30 0.9 NaCl at 10ml/hr 30 30 Intake, IV Titration 154.245 Amount Heparin Sod,Pork in 0.45% 154.245 NaCl 25,000 unit In 0.45 % NaCl 1 250ml.bag @ 10. 834 UNITS/KG/HR 10 mls/hr IV .Q24H [facility] Rx#: [id number] Oral 840 480 Output: Urine 152 100 125 Other: Voiding Method Indwelling Catheter Indwelling Catheter Indwelling Catheter - Exam GENERAL EXAM: Alert, pleasant, 73-year-old white male on room air, comfortable in no apparent distress. HEAD: Normocephalic/atraumatic. EYES: Normal reaction of pupils, equal size. Conjunctiva pink, sclera white. NOSE: Clear with pink turbinates. THROAT: No erythema or exudates. NECK: No masses, no JVD, no thyroid enlargement, no adenopathy. CHEST: No chest wall deformity. Symmetrical expansion. LUNGS: Equal air entry with diminished breath sounds, with basilar rales CVS: Regular rate and rhythm, normal S1 and S2, no gallops, no murmurs, no rubs ABDOMEN: Soft, nontender. No hepatosplenomegaly, normal bowel sounds, no guarding or rigidity. EXTREMITIES: No clubbing, trace pretib edema, no cyanosis, 2+ pulses and upper and lower extremities. Right groin hemodialysis cath present MUSCULOSKELETAL: Muscle strength and tone normal. SPINE: No scoliosis or deformity SKIN: No rashes CENTRAL NERVOUS SYSTEM: Alert and oriented -3. No focal deficits, tone is normal in all 4 extremities. PSYCHIATRIC: Alert and oriented -3. Appropriate affect. Intact judgment and insight. - Labs CBC & Chem 7: 03/06/19 04:25 03/06/19 04:25 Labs: Abnormal Lab Results - Last 24 Hours (Table) 03/05/19 03/05/19 03/05/19 Range/Units 14:23 14:23 19:05 WBC 19.8 H (3.8-10.6) k/uL RBC 3.10 L (4.30-5.90) m/uL Hgb 8.4 L (13.0-17.5) gm/dL Hct 27.1 L (39.0-53.0) % Plt Count 520 H (150-450) k/uL Neutrophils # 18.5 H (1.3-7.7) k/uL Lymphocytes # 0.2 L (1.0-4.8) k/uL PT 13.0 H (9.0-12.0) sec INR 1.3 H (<1.2) APTT 36.6 H 41.7 H (22.0-30.0) sec Sodium (137-145) mmol/L Chloride (98-107) mmol/L Carbon Dioxide (22-30) mmol/L BUN (9-20) mg/dL Creatinine (0.66-1.25) mg/dL Glucose (74-99) mg/dL Calcium (8.4-10.2) mg/dL 03/06/19 03/06/19 03/06/19 Range/Units 04:25 04:25 04:25 WBC 21.2 H (3.8-10.6) k/uL RBC 2.65 L (4.30-5.90) m/uL Hgb 7.3 L (13.0-17.5) gm/dL Hct 23.0 L (39.0-53.0) % Plt Count 461 H (150-450) k/uL Neutrophils # 19.6 H (1.3-7.7) k/uL Lymphocytes # 0.4 L (1.0-4.8) k/uL PT (9.0-12.0) sec INR (<1.2) APTT 41.4 H (22.0-30.0) sec Sodium 131 L (137-145) mmol/L Chloride 95 L (98-107) mmol/L Carbon Dioxide 21 L (22-30) mmol/L BUN 70 H (9-20) mg/dL Creatinine 9.86 H* (0.66-1.25) mg/dL Glucose 141 H (74-99) mg/dL Calcium 8.2 L (8.4-10.2) mg/dL Microbiology - Last 24 Hours (Table) 03/03/19 09:38 Gram Stain - Preliminary Thoracic Fluid Body Fluid Culture - Preliminary 03/01/19 09:38 Blood Culture - Preliminary Blood No Growth after 96 hours Assessment and Plan Plan: Assessment: Acute bilateral pleural effusions left greater than right, most likely secondary to acute on chronic kidney injury. Status post left-sided thoracentesis on 03/03/2019 would removal of 1350 mL of pleural fluid, exudative based on pleural fluid analysis, cytology pending, pleural fluid cultures are pending so far no growth on the Gram stain Possible interstitial nephritis based on the urinalysis, patient was started empirically on prednisone by nephrology. Paroxysmal atrial fibrillation with RVR, relatively normal echocardiogram, patient is presently on amiodarone, and he is in sinus rhythm. History of Chronic kidney disease stage III Acute urinary tract infection History of prostate cancer previous robotic prostatectomy. In October of 2017. Benign essential hypertension Hyperlipidemia Glaucoma History of colon cancer Anion gap metabolic acidosis Anemia of chronic kidney disease Hyperphosphatemia secondary to renal failure Generalized weakness Plan: Continue with current medical treatment, continue with antibiotics, awaiting hemodialysis treatment today, patient is clinically asymptomatic, no shortness of breath, no chest pain, no new chest x-rays today, vital signs are stable, he is on room air, remains in sinus mechanism, he is anticoagulated with heparin for episode of A. fib RVR. Possibility of renal biopsy on Monday, left thorac entesis pleural fluid at [facility] was negative, pleural fluid cultures remain negative thus far. Patient is stable to transfer out of the intensive care unit to medical surgical floor with telemetry I performed a history & physical examination of the patient and discussed their management with my nurse practitioner, Nia Rojas. I reviewed the nurse practitioner's note and agree with the documented findings and plan of care. Lung sounds are positive for diminished breath sounds. The findings and the impression was discussed with the patient. I attest to the documentation by the nurse practitioner. Time with Patient: Less than 30
[2019-03-06] MEDS: HEPARIN SOD,PORK IN 0.45% NACL 25,000 UNIT in 0.45% NACL 1 250ML.BAG IV SCH (11:50)
--- NOTE | 2019-03-06 12:29 | P.PN ---
Subjective This is Rach Banuelos PA-C dictating a progress note on this patient The patient was interviewed and examined by me as well as by Dr. Marquez Case discussed with Dr. Marquez and he agrees with the plan of care IMPRESSION / ASSESSMENT: Paroxysmal atrial fibrillation, has remained in sinus rhythm on amiodarone, warfarin being held for renal biopsy, planned for Monday, patient is on heparin Acute renal failure, on dialysis Anemia Hypertension, controlled PLAN: Continue current dose of labetalol and give Procardia XL in the afternoon if needed after dialysis, monitor blood pressure Continue holding aspirin and warfarin for renal biopsy HPI/interval history Patient is a 73-year-old male who is admitted with shortness of breath and found to be in acute renal failure and was started on dialysis. He developed atrial fibrillation and was started on amiodarone. He was found to be LYLA positive so his hydralazine was stopped yesterday. We started him on labetalol and Procardia XL instead. His blood pressure and heart rates have improved. Patient hasn't had any problems with the medication changes. Denies any complaints of shortness of breath, chest pain, palpitations, lightheadedness or dizziness. EXAMINATION Temperature 98.6F, pulse 80, respirations 14, blood pressure 132/65 and oxygen saturation 93% on room air Seen and examined resting comfortably in bed Lungs mildly diminished bilaterally Heart is regular rate and rhythm, soft systolic murmur, no rubs or gallops No lower extremity edema REVIEW OF LABS, ECG WBC 21.1, hemoglobin 7.3, potassium 4.8, BUN 70, creatinine 9.86 Rhythm strips reveal sinus rhythm, heart rates improved Objective - Vital Signs Vital signs: Vital Signs Temp 98.6 F 03/06/19 08:00 Pulse 85 03/06/19 08:00 Resp 14 03/06/19 08:00 BP 132/65 03/06/19 08:00 Pulse Ox 93 L 03/06/19 08:00 Intake & Output 03/05/19 03/06/19 03/06/19 18:59 06:59 18:59 Intake Total 870 154.245 600.113 Output Total 152 100 125 Balance 718 54.245 475.113 Weight 92 kg Intake: IV 30 30 0.9 NaCl at 10ml/hr 30 30 Intake, IV Titration 154.245 90.113 Amount Heparin Sod,Pork in 0.45% 154.245 90.113 NaCl 25,000 unit In 0.45 % NaCl 1 250ml.bag @ 10. 834 UNITS/KG/HR 10 mls/hr IV .Q24H [facility] Rx#: [id number] Oral 840 480 Output: Urine 152 100 125 Other: Voiding Method Indwelling Catheter Indwelling Catheter Indwelling Catheter - Labs CBC & Chem 7: 03/06/19 04:25 03/06/19 04:25 Labs: Abnormal Lab Results - Last 24 Hours (Table) 03/05/19 03/05/19 03/05/19 Range/Units 14:23 14:23 19:05 WBC 19.8 H (3.8-10.6) k/uL RBC 3.10 L (4.30-5.90) m/uL Hgb 8.4 L (13.0-17.5) gm/dL Hct 27.1 L (39.0-53.0) % Plt Count 520 H (150-450) k/uL Neutrophils # 18.5 H (1.3-7.7) k/uL Lymphocytes # 0.2 L (1.0-4.8) k/uL PT 13.0 H (9.0-12.0) sec INR 1.3 H (<1.2) APTT 36.6 H 41.7 H (22.0-30.0) sec Sodium (137-145) mmol/L Chloride (98-107) mmol/L Carbon Dioxide (22-30) mmol/L BUN (9-20) mg/dL Creatinine (0.66-1.25) mg/dL Glucose (74-99) mg/dL Calcium (8.4-10.2) mg/dL 03/06/19 03/06/19 03/06/19 Range/Units 04:25 04:25 04:25 WBC 21.2 H (3.8-10.6) k/uL RBC 2.65 L (4.30-5.90) m/uL Hgb 7.3 L (13.0-17.5) gm/dL Hct 23.0 L (39.0-53.0) % Plt Count 461 H (150-450) k/uL Neutrophils # 19.6 H (1.3-7.7) k/uL Lymphocytes # 0.4 L (1.0-4.8) k/uL PT (9.0-12.0) sec INR (<1.2) APTT 41.4 H (22.0-30.0) sec Sodium 131 L (137-145) mmol/L Chloride 95 L (98-107) mmol/L Carbon Dioxide 21 L (22-30) mmol/L BUN 70 H (9-20) mg/dL Creatinine 9.86 H* (0.66-1.25) mg/dL Glucose 141 H (74-99) mg/dL Calcium 8.2 L (8.4-10.2) mg/dL Microbiology - Last 24 Hours (Table) 03/01/19 09:38 Blood Culture - Preliminary Blood No Growth after 120 hours 03/03/19 09:38 Gram Stain - Preliminary Thoracic Fluid Body Fluid Culture - Preliminary
[2019-03-06] MEDS: FUROSEMIDE 10 MG/ML 10 ML VIAL IV SCH ×2 (12:43→20:17)
--- NOTE | 2019-03-06 14:52 | PN ---
PROGRESS NOTE CHIEF COMPLAINT: Acute renal failure. HISTORY OF PRESENT ILLNESS: There has been no basic change in this gentleman's condition. He is making very little urine. He is being dialyzed on a frequent basis and the numbers are improving. He has not had a bowel movement. He is concerned he is not having abdominal pain. PHYSICAL EXAM: His vital signs are normal. Chest is clear. Cardiac exam is normal. Abdomen is soft and nontender. Extremities: Normal. Zapata catheter still in place. IMPRESSION: 1. Acute renal failure without oligo urea. 2. Constipation. 3. History of hypertension. 4. History of alcoholism. PLAN: Help correct constipation. MMODL / IJN: [id number] /
[2019-03-06] MEDS: NIFEdipine XL 90 MG TAB.ER.24 PO SCH (17:59)
[2019-03-06] MEDS: LEVOFLOXACIN 250 MG TAB PO SCH (19:21)
[2019-03-06] MEDS ORDERED: HEPARIN SODIUM,PORCINE 5,000 UNIT/ML 1 ML VIAL IV STA (19:25)
[2019-03-06] MEDS: LATANOPROST 0.005% OPHTH DROPS 2.5 ML BTL BOTH EYES SCH (20:17)
[2019-03-06] MEDS: ATORVASTATIN 40 MG TAB PO SCH (20:18)
[2019-03-07 06:04] LABS: Basophils % (A) 0 %; Eosinophils % (A) 0 %; HCT 22.1 % (39.0-53.0); Hypochromasia Slight; Lymphocytes # (A) 0.4 k/uL (1.0-4.8); Lymphocytes % (A) 2 %; MCH 27.8 pg (25.0-35.0); MCHC 31.9 g/dL (31.0-37.0); MCV 87.1 fL (80.0-100.0); Mean Platelet Volume 8.3; Monocytes % (A) 5 %; Neutrophils # (A) 17.3 k/uL (1.3-7.7); Neutrophils % (A) 91 %; Platelet Count 444 k/uL (150-450); RBC 2.53 m/uL (4.30-5.90); RDW 14.6 % (11.5-15.5); WBC 18.9 k/uL (3.8-10.6)
[2019-03-07] MEDS: HEPARIN SOD,PORK IN 0.45% NACL 25,000 UNIT in 0.45% NACL 1 250ML.BAG IV SCH (06:37)
[2019-03-07] MEDS: FUROSEMIDE 10 MG/ML 10 ML VIAL IV SCH ×2 (08:01→20:47)
[2019-03-07] MEDS: predniSONE 20 MG TAB PO SCH ×2 (08:01→20:47)
[2019-03-07] MEDS: AMIODARONE 200 MG TAB PO SCH ×2 (08:01→20:47)
[2019-03-07] MEDS: PANTOPRAZOLE 40 MG TABLET PO SCH (08:02)
[2019-03-07] MEDS: DORZOLAMIDE HCL 2% DROPS 10 ML BTL BOTH EYES SCH ×2 (08:02→20:52)
[2019-03-07] MEDS: SENNOSIDES-DOCUSATE SODIUM 1 EACH TAB PO SCH (09:48)
[2019-03-07] MEDS: LABETALOL 100 MG TAB PO SCH ×2 (09:48→20:47)
--- NOTE | 2019-03-07 10:13 | P.PN ---
Subjective This is a pleasant 73-year-old male past medical history significant for hypertension and dyslipidemia. He initially presented to the hospital with shortness of breath and was found to have a pleural effusion, acute kidney injury and subsequently went into atrial fibrillation with RVR. He is currently maintained on IV heparin and amiodarone awaiting renal biopsy on Monday. He is seen and examined resting comfortably in bed in no acute distress. He denies chest pain, shortness of breath, dizziness or palpitations. Laboratory data reviewed, WBC 18.9, hemoglobin 7, platelets 444. Blood pressure 100/49 heart rate 73. Currently maintained on amiodarone 200 mg BID, atrovastatin 40 mg daily, lasix 80 mg IV BID per nephrology, labetolol 100 mg BID and nifedipine 90 mg daily at noon. GENERAL: Well-appearing, well-nourished and in no acute distress. NECK: Supple without JVD or thyromegaly. LUNGS: Breath sounds clear to auscultation bilaterally. Respiration equal and unlabored. No wheezes, rales or rhonchi. HEART: Regular rate and rhythm with systolic ejection murmur at the left sternal border, no rubs or gallops. S1 and S2 heard. EXTREMITIES: Normal range of motion, no edema. No clubbing or cyanosis. Peripheral pulses intact. ASSESSMENT Paroxysmal atrial fibrillation, currently maintaining sinus mechanism. Renal b iopsy planned for Monday, heparin infusion ongoing Acute bilateral pleural effusion s/p thoracentesis Acute on chronic renal failure Urinary tract infection Aortic stenosis, mean 15 mmHg Hypertension Dyslipidemia PLAN Continue current medical regimen. Heparin infusion ongoing, transition to coumadin after renal biopsy. Follow blood pressure closely, labetolol can be adjusted as needed for low blood pressure. Nurse Practitioner note has been reviewed, I agree with a documented findings and plan of care. Patient was seen and examined. Objective - Vital Signs Vital signs: Vital Signs Temp 99.1 F 03/07/19 07:14 Pulse 73 03/07/19 07:14 Resp 15 03/07/19 07:14 BP 100/49 03/07/19 07:14 Pulse Ox 90 L 03/07/19 07:14 Intake & Output 03/06/19 03/07/19 03/07/19 18:59 06:59 18:59 Intake Total 923.458 643.087 240 Output Total 2285 150 Balance -1361.542 493.087 240 Intake: IV 70 0.9 NaCl at 10ml/hr 70 Intake, IV Titration 133.458 163.087 Amount Heparin Sod,Pork in 0.45% 133.458 163.087 NaCl 25,000 unit In 0.45 % NaCl 1 250ml.bag @ 10. 834 UNITS/KG/HR 10 mls/hr IV .Q24H [facility] Rx#: [id number] Oral 720 480 240 Output: Urine 185 150 Uretheral (Zapata) 150 Hemodialysis 2100 Other: Voiding Method Indwelling Catheter Indwelling Catheter - Labs CBC & Chem 7: 03/07/19 05:53 03/06/19 04:25 Labs: Abnormal Lab Results - Last 24 Hours (Table) 03/06/19 03/06/19 03/07/19 Range/Units 13:57 18:03 00:20 WBC (3.8-10.6) k/uL RBC (4.30-5.90) m/uL Hgb (13.0-17.5) gm/dL Hct (39.0-53.0) % Neutrophils # (1.3-7.7) k/uL Lymphocytes # (1.0-4.8) k/uL APTT 154.6 H* 36.1 H 56.9 H (22.0-30.0) sec 03/07/19 03/07/19 Range/Units 05:53 05:53 WBC 18.9 H (3.8-10.6) k/uL RBC 2.53 L (4.30-5.90) m/uL Hgb 7.0 L (13.0-17.5) gm/dL Hct 22.1 L (39.0-53.0) % Neutrophils # 17.3 H (1.3-7.7) k/uL Lymphocytes # 0.4 L (1.0-4.8) k/uL APTT 52.9 H (22.0-30.0) sec Microbiology - Last 24 Hours (Table) 03/03/19 09:38 Gram Stain - Final Thoracic Fluid Body Fluid Culture - Final 03/01/19 09:38 Blood Culture - Preliminary Blood No Growth after 120 hours
[2019-03-07] MEDS ORDERED: MAGNESIUM HYDROXIDE 2,400 MG/10 ML CUP PO PRN (10:18)
--- NOTE | 2019-03-07 10:20 | P.PN ---
Subjective Patient is seen in follow-up for acute kidney injury. He is currently hemodialysis dependent. He remains oliguric. He was started on prednisone on March 02 for presumed interstitial nephritis. Denies active chest pain or shortness of breath. Currently maintained on hemodialysis on a Monday schedule. Scheduled for kidney biopsy on Monday. Vital signs are stable. General: The patient appeared well nourished and normally developed. HEENT: Head exam is unremarkable. Neck is without jugular venous distension. LUNGS: Lungs are clear to auscultation and percussion. Breath sounds decreased. HEART: Rate and Rhythm are regular. First and second heart sounds normal. No murmurs, rubs or gallops. ABDOMEN: Abdominal exam reveals normal bowel sounds. Non-tender and non- distended. EXTREMITITES: 1+ edema. Objective - Vital Signs Vital signs: Vital Signs Temp 99.1 F 03/07/19 07:14 Pulse 73 03/07/19 07:14 Resp 15 03/07/19 07:14 BP 100/49 03/07/19 07:14 Pulse Ox 90 L 03/07/19 07:14 Intake & Output 03/06/19 03/07/19 03/07/19 18:59 06:59 18:59 Intake Total 923.458 643.087 240 Output Total 2285 150 Balance -1361.542 493.087 240 Intake: IV 70 0.9 NaCl at 10ml/hr 70 Intake, IV Titration 133.458 163.087 Amount Heparin Sod,Pork in 0.45% 133.458 163.087 NaCl 25,000 unit In 0.45 % NaCl 1 250ml.bag @ 10. 834 UNITS/KG/HR 10 mls/hr IV .Q24H [facility] Rx#: [id number] Oral 720 480 240 Output: Urine 185 150 Uretheral (Zapata) 150 Hemodialysis 2100 Other: Voiding Method Indwelling Catheter Indwelling Catheter - Labs CBC & Chem 7: 03/07/19 05:53 03/06/19 04:25 Labs: Abnormal Lab Results - Last 24 Hours (Table) 03/06/19 03/06/19 03/07/19 Range/Units 13:57 18:03 00:20 WBC (3.8-10.6) k/uL RBC (4.30-5.90) m/uL Hgb (13.0-17.5) gm/dL Hct (39.0-53.0) % Neutrophils # (1.3-7.7) k/uL Lymphocytes # (1.0-4.8) k/uL APTT 154.6 H* 36.1 H 56.9 H (22.0-30.0) sec 03/07/19 03/07/19 Range/Units 05:53 05:53 WBC 18.9 H (3.8-10.6) k/uL RBC 2.53 L (4.30-5.90) m/uL Hgb 7.0 L (13.0-17.5) gm/dL Hct 22.1 L (39.0-53.0) % Neutrophils # 17.3 H (1.3-7.7) k/uL Lymphocytes # 0.4 L (1.0-4.8) k/uL APTT 52.9 H (22.0-30.0) sec Microbiology - Last 24 Hours (Table) 03/03/19 09:38 Gram Stain - Final Thoracic Fluid Body Fluid Culture - Final 03/01/19 09:38 Blood Culture - Preliminary Blood No Growth after 120 hours Assessment and Plan Plan: Assessment: 1. Acute kidney injury. There is concern for underlying GN. He is noted to be LYLA positive and indeterminate double-stranded DNA. Urine eosinophils negative. He has sub-nephrotic range proteinuria. He was started on prednisone on March 02 for presumed interstitial nephritis. Currently hemodialysis dependent. 2. Pleural effusions status post left-sided thoracentesis with 1.3 L drained. 3. A. fib maintained on oral amiodarone and heparin drip. 4. Hyperphosphatemia secondary to acute kidney injury. Improved with dialysis. 5. Chronic kidney disease stage III with baseline creatinine in the range of 1.3-1.5. Plan: Follow-up anca tities. Kidney biopsy scheduled for Monday. I will give him a dose of IV DDAVP one hour prior to kidney biopsy. Lasix 80 mg IV twice daily. Discontinue Zapata catheter. Continue to monitor renal function and urine output. Needs a P-cath and groin catheter removed; will notify vascular surgery.
[2019-03-07 10:43] LABS: Potassium 4.8 mmol/L (3.5-5.1)
--- NOTE | 2019-03-07 12:19 | P.PN ---
Subjective Progress Note Date: 03/07/19 Principal diagnosis: Acute on chronic renal failure, bilateral pleural effusions secondary to SHAYNA This 73-year-old -[place] male patient of Dr. Ortiz, who presented to the emergency department on 03/01/2019 with complaints of left shoulder pain, not feeling well, decreased appetite, nausea vomiting. Apparently there was a recent outpatient chest x-ray done showing a large-sized left pleural effusion. Patient was taking Aleve for his left shoulder pain, denied any injury, or trauma to his left shoulder. Denied any chest pain, cough or congestion, his any abdominal pain, although does admit to being nauseous. Passing normal bowel movements. Patient has a history of hypertension, hyperlipidemia, chronic kidney disease stage III, slight creatinine of 1.4 mg/dL, 2 of colon cancer, glaucoma, BPH, history of previous nicotine dependence. No history of drug a buse or alcohol abuse. Chest x-ray was completed showing moderate sized left pleural effusion, adjacent atelectasis, and minor right basilar opacity with atelectasis/infiltrate. He megaly and mild pulmonary vascular congestion. EKG shows sinus rhythm with PAC. CT of the chest was completed showing moderate to large size pericardial effusion, and small to moderate size left greater than right pleural effusions with associated left basilar atelectasis. There is volume loss in the right side of unknown etiology. Echocardiogram was completed showing moderate concentric left ventricular hypertrophy with hyperdynamic left ventricle systolic function with an EF of greater than 70%, mild aortic stenosis, no pulmonary hypertension, and does moderate generalized pericardial effusion. Blood work showed significant increase in patient's creatinine from his baseline, at 18.4, with BUN of 133, serum sodium is 133, potassium is 4.7, chloride was 95, CO2 was 16, troponin was negative, proBNP was at 7940, liver enzymes were within normal limits, white blood cell count of 14.7, hemoglobin of 7.8, platelet count was 537, coordination profile was within normal limits, urinalysis showed 2+ protein, large amount of leuk trase, large amount of PRBCs and large amount of WBCs with many WBC clumps and urine bacteria. Patient is currently sitting up in the chair, in no acute distress, he denies any shortness of breath, room air pulse ox is 92%, denies any chest pain, he is afebrile, respirations are nonlabored, lung sounds reveal diminished breath sounds on the left, patient is having emergent temporary hemodialysis catheter inserted sometime this afternoon with urgent hemodialysis. The patient is seen today 03/02/2019 in follow-up on the selective care unit. He did not receive dialysis yesterday. He did go down for a right femoral dialysis catheter placement this morning. He is to receive dialysis today. He is awake and alert. Resting fairly comfortably in bed. Maintaining O2 saturations in the 90s on room air. He's had a low-grade temperature. Hypertensive. Urine culture pending. White count 12.1. Hemoglobin 7.9. BUN 137. Creatinine 18.33. Patient was reevaluated today on 03/03/2019, patient was transferred yesterday to the intensive care unit, mostly because of intermittent episodes of atrial fibrillation and RVR, he was placed on amiodarone drip, and on heparin, the nurse taking care of the patient was having difficulty with venous access, hence the patient was transferred to the ICU, he already had an external jugular venous line placed by nurse practitioner, and apparently one of the lines in the dialysis catheter could be used for infusion purposes if needed. That did not need to be used and overnight the patient was switched from IV heparin to L ovenox, and we recommended that he remains on amiodarone drip. Today the patient will be placed on Coumadin, and the Lovenox will be discontinued altogether. I did perform a left-sided thoracentesis, and 1350 mL of fluid drained from the left pleural space. Patient is presently in sinus rhythm, on amiodarone drip, hemodynamically stable, and in no distress. His labs today showed a low hemoglobin of 7.7 WBC count is 11.1. BUN is 98 creatinine 14.35, I believe the patient will dialyzed again today. Patient has a baseline creatinine of 1.4 however on this admission he obviously sustained acute on chronic kidney injury. Apparently the patient has been taking nonsteroidal and the inflammatory medications, and he presented with intermittent episodes of nausea vomiting and diarrhea. His urinalysis was suggestive of interstitial nephritis hence nephrology recommended starting the patient on prednisone 20 mg twice a day. On 03/05/2019 patient seen again in the intensive care unit, he is awake and alert, currently down to 3 L of oxygen, pulse ox on 4 L of oxygen was 96%, he is breathing easier, no compressive chest pain, today's chest x-ray has been reviewed showing left greater than right bibasilar opacities and central vascular congestion. Patient is status post left thoracentesis on 03/02/2019 would removal of 1350 ML of pleural fluid, and the pleural fluid analysis showed exudative fluid. Blood culture showed no growth, pleural fluid culture showed no growth after 24 hours, fungal culture is pending. Cytology is pending. Patient had hemodialysis yesterday, with removal of 3 L of fluid, another hemodialysis treatment is pending today. Today's labs have been reviewed, showing white blood cell count of 15.1, hemoglobin of 7.2, platelet count of 492, INR is 1.3, sodium is 135, potassium is 4.8, chloride is 99, CO2 is 23, BUN is 51, creatinine is 8.25. No acute complaints, no cough or congestion. Lung sounds are positive for diminished breath sounds at the bases, and scattered rales. On 03/06/2019 patient seen in follow-up in the intensive care unit, he is awake and alert, in no acute distress, he denies any shortness of breath, he is on room air, pulse ox is 93%, hemodynamically stable, afebrile, patient will have a hemodialysis treatment today, was not dialyzed yesterday. Full catheter is in place, and patient is producing an patient is producing some urine. His labs have been reviewed, showing white blood cell count of 21.2, hemoglobin is 7.3, platelet, sore 161, sodium is 131, potassium is 4.8, chloride is 95, CO2 is 21, BUN 70, creatinine is 9.86. No new chest x-ray today. Patient is on Levaquin for acute urinary tract infection, urine culture was negative. No acute events overnight, no specific complaints, no nausea vomiting or diarrhea, no chest pain or shortness of breath, patient is sinus rhythm on the monitor. Heparin drip fo r episode of A. fib RVR, nephrology is pending a kidney biopsy possibly on Monday, pleural fluid cytology is negative. On 03/07/2019 patient seen in follow-up on medical surgical floor. He is resti ng comfortably in bed, yesterday he had hemodialysis treatments would removal of 2.1 L of fluid. He denies any shortness of breath, he is currently on room air, his pulse ox is 90-93%, no compressive chest pain, vital signs are stable. Lung sounds reveal diminished breath sounds with basilar rales, no cough or congestion, no wheezing. Today's lab work has been reviewed showing white blood cell count of 18.9, hemoglobin is 7.0, platelet count was 444, serum sodium is 131, potassium is 4.8, chloride is 97, B1 is 63 creatinine is 8.39. She remains on heparin drip for anticoagulation for history of A. fib, he is on IV Lasix at 80 mg every 12 hours, and patient is producing urine. Remains on prednisone per nephrology Objective - Vital Signs Vital signs: Vital Signs Temp 99.1 F 03/07/19 07:14 Pulse 73 03/07/19 08:00 Resp 15 03/07/19 08:00 BP 100/49 03/07/19 07:14 Pulse Ox 90 L 03/07/19 07:14 Intake & Output 03/06/19 03/07/19 03/07/19 18:59 06:59 18:59 Intake Total 923.458 643.087 240 Output Total 2285 150 Balance -1361.542 493.087 240 Intake: IV 70 0.9 NaCl at 10ml/hr 70 Intake, IV Titration 133.458 163.087 Amount Heparin Sod,Pork in 0.45% 133.458 163.087 NaCl 25,000 unit In 0.45 % NaCl 1 250ml.bag @ 10. 834 UNITS/KG/HR 10 mls/hr IV .Q24H [facility] Rx#: [id number] Oral 720 480 240 Output: Urine 185 150 Uretheral (Zapata) 150 Hemodialysis 2100 Other: Voiding Method Indwelling Catheter Indwelling Catheter Indwelling Catheter - Exam GENERAL EXAM: Alert, pleasant, 73-year-old white male on room air, comfortable in no apparent distress. HEAD: Normocephalic/atraumatic. EYES: Normal reaction of pupils, equal size. Conjunctiva pink, sclera white. NOSE: Clear with pink turbinates. THROAT: No erythema or exudates. NECK: No masses, no JVD, no thyroid enlargement, no adenopathy. CHEST: No chest wall deformity. Symmetrical expansion. LUNGS: Equal air entry with diminished breath sounds, with basilar rales CVS: Regular rate and rhythm, normal S1 and S2, no gallops, no murmurs, no rubs ABDOMEN: Soft, nontender. No hepatosplenomegaly, normal bowel sounds, no guarding or rigidity. EXTREMITIES: No clubbing, trace pretib edema, no cyanosis, 2+ pulses and upper and lower extremities. Right groin hemodialysis cath present MUSCULOSKELETAL: Muscle strength and tone normal. SPINE: No scoliosis or deformity SKIN: No rashes CENTRAL NERVOUS SYSTEM: Alert and oriented -3. No focal deficits, tone is normal in all 4 extremities. PSYCHIATRIC: Alert and oriented -3. Appropriate affect. Intact judgment and insight. - Labs CBC & Chem 7: 03/07/19 05:53 03/07/19 05:53 Labs: Abnormal Lab Results - Last 24 Hours (Table) 03/06/19 03/06/19 03/07/19 Range/Units 13:57 18:03 00:20 WBC (3.8-10.6) k/uL RBC (4.30-5.90) m/uL Hgb (13.0-17.5) gm/dL Hct (39.0-53.0) % Neutrophils # (1.3-7.7) k/uL Lymphocytes # (1.0-4.8) k/uL APTT 154.6 H* 36.1 H 56.9 H (22.0-30.0) sec Sodium (137-145) mmol/L Chloride (98-107) mmol/L BUN (9-20) mg/dL Creatinine (0.66-1.25) mg/dL Glucose (74-99) mg/dL Calcium (8.4-10.2) mg/dL 03/07/19 03/07/19 03/07/19 Range/Units 05:53 05:53 05:53 WBC 18.9 H (3.8-10.6) k/uL RBC 2.53 L (4.30-5.90) m/uL Hgb 7.0 L (13.0-17.5) gm/dL Hct 22.1 L (39.0-53.0) % Neutrophils # 17.3 H (1.3-7.7) k/uL Lymphocytes # 0.4 L (1.0-4.8) k/uL APTT 52.9 H (22.0-30.0) sec Sodium 131 L (137-145) mmol/L Chloride 97 L (98-107) mmol/L BUN 63 H (9-20) mg/dL Creatinine 8.39 H* (0.66-1.25) mg/dL Glucose 138 H (74-99) mg/dL Calcium 8.0 L (8.4-10.2) mg/dL Microbiology - Last 24 Hours (Table) 03/01/19 09:38 Blood Culture - Final Blood No Growth after 144 hours 03/03/19 09:38 Gram Stain - Final Thoracic Fluid Body Fluid Culture - Final Assessment and Plan Plan: Assessment: Acute bilateral pleural effusions left greater than right, most likely secondary to acute on chronic kidney injury. Status post left-sided thoracentesis on 03/03/2019 would removal of 1350 mL of pleural fluid, exudative based on pleural fluid analysis, cytology pending, pleural fluid cultures are pending so far no growth on the Gram stain Possible interstitial nephritis based on the urinalysis, patient was started empirically on prednisone by nephrology. Paroxysmal atrial fibrillation with RVR, relatively normal echocardiogram, patient is presently on amiodarone, and he is in sinus rhythm. History of Chronic kidney disease stage III Acute urinary tract infection History of prostate cancer previous robotic prostatectomy. In October of 2017. Benign essential hypertension Hyperlipidemia Glaucoma History of colon cancer Anion gap metabolic acidosis Anemia of chronic kidney disease Hyperphosphatemia secondary to renal failure Generalized weakness Plan: Patient remains stable, no acute issues overnight, no complaints of shortness of breath, or chest pain, vital signs are stable, patient continue on hemodialysis on Monday schedule. Anticipate further improvement of pleural effusions with hemodialysis treatment. No plans for repeat thoracentesis. Will sign off and follow on as-needed basis I performed a history & physical examination of the patient and discussed their management with my nurse practitioner, Nia Rojas. I reviewed the nurse practitioner's note and agree with the documented findings and plan of care. Lung sounds are positive for diminished breath sounds. The findings and the impression was discussed with the patient. I attest to the documentation by the nurse practitioner. Time with Patient: Less than 30
--- NOTE | 2019-03-07 12:35 | PN ---
PROGRESS NOTE CHIEF COMPLAINT: Renal failure. HISTORY OF PRESENT ILLNESS: This gentleman is feeling fine and doing fairly well, but he still is constipated. He has no other complaints. REVIEW OF SYSTEMS: He has had no headaches, confusion, change in vision or hearing, shortness of breath, chest pain, cough, abdominal pain, nausea, etc. PHYSICAL EXAMINATION: Head ears, eyes, nose, mouth, and throat are normal. Hydration is adequate. Chest is clear. Cardiac exam is normal sinus rhythm. Abdomen is soft, nontender. IMPRESSION: 1. Acute renal failure. 2. Hypertension. 3. Constipation. PLAN: 1. Order up medications to help with stool softening and elimination. 2. Otherwise no particular changes at this time and dialysis will continue. MMODL / IJN: [id number] /
[2019-03-07] MEDS: NIFEdipine XL 90 MG TAB.ER.24 PO SCH (14:42)
[2019-03-07] MEDS: ATORVASTATIN 40 MG TAB PO SCH (20:47)
[2019-03-07] MEDS: LATANOPROST 0.005% OPHTH DROPS 2.5 ML BTL BOTH EYES SCH (20:47)
[2019-03-08 09:05] LABS: Basophils % (A) 0 %; Eosinophils # (A) 0.1 k/uL (0-0.7); Eosinophils % (A) 0 %; HCT 24.1 % (39.0-53.0); HGB 7.4 gm/dL (13.0-17.5); Lymphocytes # (A) 0.5 k/uL (1.0-4.8); Lymphocytes % (A) 3 %; MCHC 30.9 g/dL (31.0-37.0); MCV 87.4 fL (80.0-100.0); Mean Platelet Volume 6.9; Monocytes # (A) 0.8 k/uL (0-1.0); Monocytes % (A) 4 %; Neutrophils # (A) 17.7 k/uL (1.3-7.7); Neutrophils % (A) 92 %; Platelet Count 547 k/uL (150-450); RBC 2.75 m/uL (4.30-5.90); RDW 14.6 % (11.5-15.5); WBC 19.2 k/uL (3.8-10.6)
[2019-03-08] MEDS: DORZOLAMIDE HCL 2% DROPS 10 ML BTL BOTH EYES SCH ×2 (09:17→20:38)
[2019-03-08] MEDS: SENNOSIDES-DOCUSATE SODIUM 1 EACH TAB PO SCH (09:17)
[2019-03-08] MEDS: FUROSEMIDE 10 MG/ML 10 ML VIAL IV SCH ×2 (09:17→20:38)
[2019-03-08] MEDS: AMIODARONE 200 MG TAB PO SCH ×2 (09:18→20:37)
[2019-03-08] MEDS: LABETALOL 100 MG TAB PO SCH ×2 (09:18→20:38)
[2019-03-08] MEDS: predniSONE 20 MG TAB PO SCH ×2 (09:18→20:38)
[2019-03-08 09:30] LABS: Calcium 8.3 mg/dL (8.4-10.2)
--- NOTE | 2019-03-08 11:14 | PN ---
PROGRESS NOTE CHIEF COMPLAINT: Renal failure. HISTORY OF PRESENT ILLNESS: This gentleman has been stable. Creatinine has actually risen slightly. He is going down today to have his dialysis catheters removed from his groin to his chest. PHYSICAL EXAM: Unchanged and he is otherwise doing well. IMPRESSION: 1. Acute renal failure. 2. Hypertension. PLAN: Remove dialysis catheters into upper chest and continue monitoring his renal function on dialysis with long-term plan yet to be made. MMODL / IJN: [id number] /
[2019-03-08] MEDS ORDERED: LIDOCAINE 1% INJ 10MG/ML (20 ML MDV) SQ ONE (11:31)
[2019-03-08] MEDS ORDERED: fentaNYL (PF) 50 MCG/ML 2 ML AMP IV ONE (12:25)
[2019-03-08] MEDS ORDERED: IV FLUID CONTINUATION 300 ML IV ONE (12:26)
[2019-03-08] MEDS ORDERED: HEPARIN SODIUM 1,000 UN/ML (10ML VL) MISCELLANE ONE (12:43)
--- NOTE | 2019-03-08 13:12 | PCN ---
PROCEDURE NOTE PREOPERATIVE DIAGNOSIS: Acute on chronic renal failure. PROCEDURE PERFORMED: 1. Placement of ultrasound-guided 23 cm dialysis catheter right internal jugular vein. 2. Removal of the dialysis catheter from right femoral approach. SEDATION: Sedation time is 25 minutes. DESCRIPTION OF PROCEDURE: This patient was brought to the medical laboratory technicians. Right side of the neck and chest was prepped and draped in usual sterile manner and 1% lidocaine was infiltrated in the neck and chest area. Ultrasound-guided micropuncture introduced right jugular vein. After that, we passed a micropuncture guidewire and 4-H[place]ian sheath were advanced on the top of the guidewire. After that, we created a tunnel. A small incision was made at the chest area and the catheter was brought through to the neck area. Then we passed a regular guidewire under fluoroscopy control, which was brought to the inferior vena cava. The dilator was advanced. The sheath was advanced. Through the sheath we introduced the dialysis catheter. Tip of the catheter in superior vena cava and atrium, flushed with heparin saline and hep-locked and secured with 3-0 nylon. After that, right groin was prepped. The stitches were removed and right femoral catheter removed. Pressure held. Patient tolerated the procedure well. MMODL / IJN: [id number] /
--- NOTE | 2019-03-08 13:48 | P.PN ---
Subjective Patient is seen in follow-up for acute kidney injury. He is currently hemodialysis dependent. He was started on prednisone on March 02 for presumed interstitial nephritis. Denies active chest pain or shortness of breath. Currently maintained on hemodialysis on a Monday schedule. Scheduled for kidney biopsy on Monday. Patient had a permacath placed today. No active complaints at this time. Vital signs are stable. General: The patient appeared well nourished and normally developed. HEENT: Head exam is unremarkable. Neck is without jugular venous distension. LUNGS: Lungs are clear to auscultation and percussion. Breath sounds decreased. HEART: Rate and Rhythm are regular. First and second heart sounds normal. No murmurs, rubs or gallops. ABDOMEN: Abdominal exam reveals normal bowel sounds. Non-tender and non-diste nded. EXTREMITITES: 1+ edema. Objective - Vital Signs Vital signs: Vital Signs Temp 98.1 F 03/08/19 07:00 Pulse 74 03/08/19 09:30 Resp 14 03/08/19 09:30 BP 131/71 03/08/19 07:00 Pulse Ox 95 03/08/19 07:00 Intake & Output 03/07/19 03/08/19 03/08/19 18:59 06:59 18:59 Intake Total 740 480 346 Output Total 300 Balance 440 480 346 Intake: IV 50 Intake, IV Titration 0 Amount Heparin Sod,Pork in 0.45% 0 NaCl 25,000 unit In 0.45 % NaCl 1 250ml.bag @ 10. 834 UNITS/KG/HR 10 mls/hr IV .Q24H [facility] Rx#: [id number] Oral 740 480 296 Output: Urine 300 Other: Voiding Method Indwelling Catheter Indwelling Catheter Indwelling Catheter - Labs CBC & Chem 7: 03/08/19 08:12 03/08/19 08:12 Labs: Abnormal Lab Results - Last 24 Hours (Table) 03/06/19 03/08/19 03/08/19 Range/Units 04:25 08:12 08:12 WBC 19.2 H (3.8-10.6) k/uL RBC 2.75 L (4.30-5.90) m/uL Hgb 7.4 L (13.0-17.5) gm/dL Hct 24.1 L (39.0-53.0) % MCHC 30.9 L (31.0-37.0) g/dL Plt Count 547 H (150-450) k/uL Neutrophils # 17.7 H (1.3-7.7) k/uL Lymphocytes # 0.5 L (1.0-4.8) k/uL APTT 32.2 H (22.0-30.0) sec Sodium (137-145) mmol/L Chloride (98-107) mmol/L Carbon Dioxide (22-30) mmol/L BUN (9-20) mg/dL Creatinine (0.66-1.25) mg/dL Glucose (74-99) mg/dL Calcium (8.4-10.2) mg/dL Tot Complement (CH50) >98 H (42 - 95) U/mL 03/08/19 Range/Units 08:12 WBC (3.8-10.6) k/uL RBC (4.30-5.90) m/uL Hgb (13.0-17.5) gm/dL Hct (39.0-53.0) % MCHC (31.0-37.0) g/dL Plt Count (150-450) k/uL Neutrophils # (1.3-7.7) k/uL Lymphocytes # (1.0-4.8) k/uL APTT (22.0-30.0) sec Sodium 131 L (137-145) mmol/L Chloride 94 L (98-107) mmol/L Carbon Dioxide 19 L (22-30) mmol/L BUN 90 H (9-20) mg/dL Creatinine 10.28 H* (0.66-1.25) mg/dL Glucose 137 H (74-99) mg/dL Calcium 8.3 L (8.4-10.2) mg/dL Tot Complement (CH50) (42 - 95) U/mL Microbiology - Last 24 Hours (Table) 03/01/19 09:38 Blood Culture - Final Blood No Growth after 144 hours Assessment and Plan Plan: Assessment: 1. Acute kidney injury. There is concern for underlying GN. He is noted to be LYLA positive and indeterminate double-stranded DNA. Urine eosinophils negative. He has sub-nephrotic range proteinuria. He was started on prednisone on March 02 for presumed interstitial nephritis. Currently hemodialysis dependent. 2. Pleural effusions status post left-sided thoracentesis with 1.3 L drained. 3. A. fib maintained on oral amiodarone and heparin drip. 4. Hyperphosphatemia secondary to acute kidney injury. Improved with dialysis. 5. Chronic kidney disease stage III with baseline creatinine in the range of 1.3-1.5. Plan: Follow-up anca tities. Kidney biopsy scheduled for Monday. I will give him a dose of IV DDAVP one hour prior to kidney biopsy. Lasix 80 mg IV twice daily. Continue to monitor renal function and urine output.
[2019-03-08] MEDS: LEVOFLOXACIN 250 MG TAB PO SCH (14:36)
[2019-03-08] MEDS: NIFEdipine XL 90 MG TAB.ER.24 PO SCH (14:36)
[2019-03-08] MEDS: BENZOCAINE/MENTHOL LOZENG 1 EACH LOZENGE MUCOUS MEM PRN ×2 (14:36→20:40)
[2019-03-08] MEDS: PANTOPRAZOLE 40 MG TABLET PO SCH (14:37)
--- NOTE | 2019-03-08 15:10 | XR ---
EXAMINATION TYPE: XR chest 1V DATE OF EXAM: 03/08/2019 HISTORY: Shortness of breath. COMPARISON: 03/05/2019 TECHNIQUE: Single view of the chest is submitted. FINDINGS: Interval placement of right-sided hemodialysis catheter with its distal tip overlying the S VC. No evidence for pneumothorax. Demonstrated are scattered senescent parenchymal change. Stable left lower lobe infiltrate and effusion. The heart is stable. Hilar and mediastinal structures are within normal limits. Degenerative changes are seen of the dorsal spine. IMPRESSION: 1. Interval placement of right-sided hemodialysis catheter with its distal tip overlying the SVC. No evidence for pneumothorax.
[2019-03-08] MEDS ORDERED: HEPARIN SODIUM,PORCINE 5,000 UNIT/ML 1 ML VIAL IV STA ×2 (15:16)
[2019-03-08 15:28] VITALS: BMI 28.3
[2019-03-08] MEDS: HEPARIN SOD,PORK IN 0.45% NACL 25,000 UNIT in 0.45% NACL 1 250ML.BAG IV SCH ×2 (19:31→23:34)
[2019-03-08] MEDS: LATANOPROST 0.005% OPHTH DROPS 2.5 ML BTL BOTH EYES SCH (20:38)
[2019-03-08] MEDS: ATORVASTATIN 40 MG TAB PO SCH (20:38)
[2019-03-09] MEDS: BENZOCAINE/MENTHOL LOZENG 1 EACH LOZENGE MUCOUS MEM PRN (03:56)
[2019-03-09 03:57] LABS: Basophils % (A) 0 %; Eosinophils % (A) 0 %; HCT 23.2 % (39.0-53.0); HGB 7.1 gm/dL (13.0-17.5); Lymphocytes # (A) 0.3 k/uL (1.0-4.8); Lymphocytes % (A) 2 %; MCH 26.5 pg (25.0-35.0); MCHC 30.7 g/dL (31.0-37.0); MCV 86.2 fL (80.0-100.0); Monocytes # (A) 0.9 k/uL (0-1.0); Monocytes % (A) 6 %; Neutrophils # (A) 13.1 k/uL (1.3-7.7); Neutrophils % (A) 91 %; Platelet Count 465 k/uL (150-450); RBC 2.69 m/uL (4.30-5.90); RDW 14.5 % (11.5-15.5); WBC 14.5 k/uL (3.8-10.6)
[2019-03-09] MEDS ORDERED: HEPARIN SODIUM,PORCINE 5,000 UNIT/ML 1 ML VIAL IV STA (04:08)
[2019-03-09] MEDS: PANTOPRAZOLE 40 MG TABLET PO SCH (07:54)
[2019-03-09] MEDS: SENNOSIDES-DOCUSATE SODIUM 1 EACH TAB PO SCH (07:55)
[2019-03-09] MEDS: LABETALOL 100 MG TAB PO SCH ×2 (07:55→21:54)
[2019-03-09] MEDS: predniSONE 20 MG TAB PO SCH (07:55)
[2019-03-09] MEDS: AMIODARONE 200 MG TAB PO SCH ×2 (07:55→21:54)
[2019-03-09] MEDS: DORZOLAMIDE HCL 2% DROPS 10 ML BTL BOTH EYES SCH ×2 (07:57→21:55)
[2019-03-09] MEDS: FUROSEMIDE 10 MG/ML 10 ML VIAL IV SCH (07:59)
[2019-03-09] MEDS: CALCIUM CARBONATE 500 MG CHEWABLE PO PRN ×2 (09:30→16:23)
[2019-03-09] MEDS ORDERED: LACTULOSE 20 GM/30 ML CUP PO PRN (09:34)
--- NOTE | 2019-03-09 09:50 | P.PN ---
Subjective Patient is seen in follow-up for acute kidney injury. He is currently hemodialysis dependent. He was started on prednisone on March 02 for presumed interstitial nephritis. Denies active chest pain or shortness of breath. Currently maintained on hemodialysis on a Monday schedule. Scheduled for kidney biopsy on Monday. Patient had a permacath placed 03/08. No active complaints at this time. He is requesting regular diet. Vital signs are stable. General: The patient appeared well nourished and normally developed. HEENT: Head exam is unremarkable. Neck is without jugular venous distension. LUNGS: Lungs are clear to auscultation and percussion. Breath sounds decreased. HEART: Rate and Rhythm are regular. First and second heart sounds normal. No murmurs, rubs or gallops. ABDOMEN: Abdominal exam reveals normal bowel sounds. Non-tender and non- distended. EXTREMITITES: 1+ edema. Objective - Vital Signs Vital signs: Vital Signs Temp 97.7 F 03/09/19 07:00 Pulse 63 03/09/19 07:00 Resp 15 03/09/19 07:00 BP 109/60 03/09/19 07:00 Pulse Ox 96 03/09/19 07:00 Intake & Output 03/08/19 03/09/19 03/09/19 18:59 06:59 18:59 Intake Total 520.97 134.554 118 Output Total 2049 Balance 520.97 -1915.446 118 Weight 92 kg Intake: IV 50 Intake, IV Titration 174.97 134.554 Amount Heparin Sod,Pork in 0.45% 174.97 134.554 NaCl 25,000 unit In 0.45 % NaCl 1 250ml.bag @ 10. 834 UNITS/KG/HR 10 mls/hr IV .Q24H [facility] Rx#: [id number] Oral 296 118 Output: Urine 50 Hemodialysis 2000 Other: Voiding Method Indwelling Catheter Toilet Toilet # Voids 1 - Labs CBC & Chem 7: 03/09/19 03:28 03/08/19 08:12 Labs: Abnormal Lab Results - Last 24 Hours (Table) 03/06/19 03/08/19 03/08/19 Range/Units 04:25 14:36 20:57 WBC (3.8-10.6) k/uL RBC (4.30-5.90) m/uL Hgb (13.0-17.5) gm/dL Hct (39.0-53.0) % MCHC (31.0-37.0) g/dL Plt Count (150-450) k/uL Neutrophils # (1.3-7.7) k/uL Lymphocytes # (1.0-4.8) k/uL APTT 30.2 H 123.6 H* (22.0-30.0) sec c-ANCA See Below H (<1:20) Titer p-ANCA See Below H (<1:20) Titer 03/09/19 03/09/19 Range/Units 03:28 03:28 WBC 14.5 H (3.8-10.6) k/uL RBC 2.69 L (4.30-5.90) m/uL Hgb 7.1 L (13.0-17.5) gm/dL Hct 23.2 L (39.0-53.0) % MCHC 30.7 L (31.0-37.0) g/dL Plt Count 465 H (150-450) k/uL Neutrophils # 13.1 H (1.3-7.7) k/uL Lymphocytes # 0.3 L (1.0-4.8) k/uL APTT 45.4 H (22.0-30.0) sec c-ANCA (<1:20) Titer p-ANCA (<1:20) Titer Assessment and Plan Plan: Assessment: 1. Acute kidney injury. There is concern for underlying GN, particularly microscopic polyangiitis as anti-MPO titer is high. He is also noted to be LYLA positive and indeterminate double-stranded DNA. Urine eosinophils negative. He has sub-nephrotic range proteinuria. He was started on prednisone on March 02 for presumed interstitial nephritis. Currently hemodialysis dependent. 2. Pleural effusions status post left-sided thoracentesis with 1.3 L drained. 3. A. fib maintained on oral amiodarone and heparin drip. 4. Hyperphosphatemia secondary to acute kidney injury. Improved with dialysis. 5. Chronic kidney disease stage III with baseline creatinine in the range of 1.3-1.5. Plan: Increase prednisone to 30 mg twice daily. Maintain PPI. Kidney biopsy scheduled for Monday. I will give him a dose of IV DDAVP one hour prior to kidney biopsy. I will change Lasix to 80 mg orally twice daily. Continue to monitor renal function and urine output. Maintain hemodialysis on Monday schedule.
[2019-03-09] MEDS: NIFEdipine XL 90 MG TAB.ER.24 PO SCH (11:49)
--- NOTE | 2019-03-09 14:25 | PN ---
PROGRESS NOTE DATE OF SERVICE: 03/09/2019 CHIEF COMPLAINT: Renal failure. HISTORY OF PRESENT ILLNESS: This gentleman is doing fairly well. New dialysis catheters were placed in the right upper anterior chest and he is not having a lot of discomfort. He is upset about the food and once his diet change, but he is on a renal diet. He also wants some lozenges, but Cepacol is bothering his mouth and burning his throat. We will try him on Tums. PHYSICAL EXAM: Chest is clear. Cardiac exam is normal. Abdomen is soft, nontender. Oral cavity looks normal. IMPRESSION: 1. Chronic renal failure on dialysis. 2. Stomatitis. PLAN: 1. Try Tums to be chewed and swallowed. 2. Diet is to remain the same for the time being. MMODL / IJN: [id number] /
[2019-03-09] MEDS: HEPARIN SOD,PORK IN 0.45% NACL 25,000 UNIT in 0.45% NACL 1 250ML.BAG IV SCH (16:19)
[2019-03-09] MEDS: FUROSEMIDE 80 MG TAB PO SCH (16:23)
[2019-03-09] MEDS: ATORVASTATIN 40 MG TAB PO SCH (21:54)
[2019-03-09] MEDS: predniSONE 10 MG TAB PO SCH (21:54)
[2019-03-09] MEDS: LATANOPROST 0.005% OPHTH DROPS 2.5 ML BTL BOTH EYES SCH (21:55)
[2019-03-10 07:33] LABS: Basophils % (A) 0 %; Eosinophils # (A) 0.1 k/uL (0-0.7); Eosinophils % (A) 0 %; HCT 21.7 % (39.0-53.0); Hypochromasia Slight; Lymphocytes # (A) 0.5 k/uL (1.0-4.8); Lymphocytes % (A) 3 %; MCH 27.9 pg (25.0-35.0); MCHC 31.8 g/dL (31.0-37.0); MCV 87.7 fL (80.0-100.0); Mean Platelet Volume 7.2; Monocytes # (A) 0.8 k/uL (0-1.0); Monocytes % (A) 5 %; Neutrophils # (A) 14.9 k/uL (1.3-7.7); Neutrophils % (A) 91 %; Platelet Count 517 k/uL (150-450); RBC 2.47 m/uL (4.30-5.90); RDW 14.5 % (11.5-15.5); WBC 16.4 k/uL (3.8-10.6)
[2019-03-10] MEDS: DORZOLAMIDE HCL 2% DROPS 10 ML BTL BOTH EYES SCH ×2 (07:49→21:01)
[2019-03-10] MEDS: predniSONE 10 MG TAB PO SCH ×2 (07:51→21:01)
[2019-03-10] MEDS: PANTOPRAZOLE 40 MG TABLET PO SCH (07:51)
[2019-03-10] MEDS: AMIODARONE 200 MG TAB PO SCH ×2 (07:51→21:01)
[2019-03-10] MEDS: FUROSEMIDE 80 MG TAB PO SCH ×2 (07:51→16:29)
[2019-03-10] MEDS: LABETALOL 100 MG TAB PO SCH ×2 (07:51→21:01)
[2019-03-10] MEDS: SENNOSIDES-DOCUSATE SODIUM 1 EACH TAB PO SCH (07:51)
[2019-03-10 07:57] LABS: Calcium 8.1 mg/dL (8.4-10.2); Potassium 4.9 mmol/L (3.5-5.1)
[2019-03-10 08:14] LABS: HGB 6.9 gm/dL (13.0-17.5)
[2019-03-10] MEDS: HEPARIN SOD,PORK IN 0.45% NACL 25,000 UNIT in 0.45% NACL 1 250ML.BAG IV SCH (09:57)
--- NOTE | 2019-03-10 10:36 | P.PN ---
Subjective Patient is seen in follow-up for acute kidney injury. He is currently hemodialysis dependent. He was started on prednisone on March 02 for presumed interstitial nephritis. Denies active chest pain or shortness of breath. Currently maintained on hemodialysis on a Monday schedule. Scheduled for kidney biopsy on Monday. Patient had a permacath placed 03/08. No active complaints at this time. Constipation is resolved. Vital signs are stable. General: The patient appeared well nourished and normally developed. HEENT: Head exam is unremarkable. Neck is without jugular venous distension. LUNGS: Lungs are clear to auscultation and percussion. Breath sounds decreased. HEART: Rate and Rhythm are regular. First and second heart sounds normal. No murmurs, rubs or gallops. ABDOMEN: Abdominal exam reveals normal bowel sounds. Non-tender and non- distended. EXTREMITITES: 1+ edema. Objective - Vital Signs Vital signs: Vital Signs Temp 98.2 F 03/10/19 07:00 Pulse 67 03/10/19 07:00 Resp 16 03/10/19 07:00 BP 121/65 03/10/19 07:00 Pulse Ox 91 L 03/10/19 07:00 Intake & Output 03/09/19 03/10/19 03/10/19 18:59 06:59 18:59 Intake Total 509.731 480 572.112 Balance 509.731 480 572.112 Intake: Intake, IV Titration 169.731 232.112 Amount Heparin Sod,Pork in 0.45% 169.731 232.112 NaCl 25,000 unit In 0.45 % NaCl 1 250ml.bag @ 10. 834 UNITS/KG/HR 10 mls/hr IV .Q24H [facility] Rx#: [id number] Oral 340 480 340 Other: Voiding Method Toilet Toilet Toilet # Voids 1 1 # Bowel Movements 1 - Labs CBC & Chem 7: 03/10/19 06:59 03/10/19 06:59 Labs: Abnormal Lab Results - Last 24 Hours (Table) 03/09/19 03/09/19 03/10/19 Range/Units 03:28 16:27 06:59 WBC 16.4 H (3.8-10.6) k/uL RBC 2.47 L (4.30-5.90) m/uL Hgb 6.9 L* (13.0-17.5) gm/dL Hct 21.7 L (39.0-53.0) % Plt Count 517 H (150-450) k/uL Neutrophils # 14.9 H (1.3-7.7) k/uL Lymphocytes # 0.5 L (1.0-4.8) k/uL APTT 66.0 H (22.0-30.0) sec Sodium (137-145) mmol/L Chloride (98-107) mmol/L Carbon Dioxide (22-30) mmol/L BUN (9-20) mg/dL Creatinine (0.66-1.25) mg/dL Glucose (74-99) mg/dL Calcium (8.4-10.2) mg/dL Crossmatch See Detail 03/10/19 03/10/19 Range/Units 06:59 06:59 WBC (3.8-10.6) k/uL RBC (4.30-5.90) m/uL Hgb (13.0-17.5) gm/dL Hct (39.0-53.0) % Plt Count (150-450) k/uL Neutrophils # (1.3-7.7) k/uL Lymphocytes # (1.0-4.8) k/uL APTT 46.4 H (22.0-30.0) sec Sodium 131 L (137-145) mmol/L Chloride 94 L (98-107) mmol/L Carbon Dioxide 21 L (22-30) mmol/L BUN 86 H (9-20) mg/dL Creatinine 9.61 H* (0.66-1.25) mg/dL Glucose 138 H (74-99) mg/dL Calcium 8.1 L (8.4-10.2) mg/dL Crossmatch Assessment and Plan Plan: Assessment: 1. Acute kidney injury. There is concern for underlying GN, particularly microscopic polyangiitis as anti-MPO titer is high. He is also noted to be LYLA positive and indeterminate double-stranded DNA. Urine eosinophils negative. He has sub-nephrotic range proteinuria. He was started on prednisone on March 02 for presumed interstitial nephritis. Currently hemodialysis dependent. 2. Pleural effusions status post left-sided thoracentesis with 1.3 L drained. 3. A. fib maintained on oral amiodarone and heparin drip. 4. Hyperphosphatemia secondary to acute kidney injury. Improved with dialysis. 5. Chronic kidney disease stage III with baseline creatinine in the range of 1.3-1.5. 6. Hyponatremia secondary to acute kidney injury. 7. Anemia. No active bleeding noted. Plan: Maintain prednisone 30 mg twice daily. Maintain PPI. Kidney biopsy scheduled for Monday. I will give him a dose of IV DDAVP one hour prior to kidney biopsy. Maintain Lasix 80 mg orally twice daily. Continue to monitor renal function and urine output. Maintain hemodialysis on Monday schedule. Check iron studies. Add Aranesp. Transfuse 1 unit of blood today.
[2019-03-10] MEDS ORDERED: DARBEPOETIN ALFA 40 MCG/0.4 ML SYRINGE SQ SCH (11:00)
[2019-03-10] MEDS: NIFEdipine XL 90 MG TAB.ER.24 PO SCH (11:34)
[2019-03-10] MEDS: LEVOFLOXACIN 250 MG TAB PO SCH (16:29)
--- NOTE | 2019-03-10 19:42 | PN ---
PROGRESS NOTE DATE OF SERVICE: 03/10/2019. CHIEF COMPLAINT: Renal failure. HISTORY OF PRESENT ILLNESS: For the first time this gentleman's hemoglobin has dropped below 7. Unit of packed cells was ordered, but he did want to take it. After having a discussion with him and his , he understands that there is very little risks to his cassie HIV, hepatitis, etc. This is what he was worried about. He agrees to go ahead. He is doing fairly well otherwise and he is not having any chest pain, shortness of breath, abdominal pain, nausea, etc. PHYSICAL EXAM: Chest is clear. Cardiac exam is normal. Abdomen is soft, nontender. IMPRESSION: 1. Chronic renal failure. 2. Anemia. PLAN: We will go ahead and transfuse 1 unit of packed cells. He continues on dialysis. MMODL / IJN: [id number] /
[2019-03-10] MEDS: LATANOPROST 0.005% OPHTH DROPS 2.5 ML BTL BOTH EYES SCH (21:01)
[2019-03-10] MEDS: ATORVASTATIN 40 MG TAB PO SCH (21:01)
[2019-03-11] MEDS: HEPARIN SOD,PORK IN 0.45% NACL 25,000 UNIT in 0.45% NACL 1 250ML.BAG IV SCH (03:34)
[2019-03-11 06:14] LABS: Basophils % (A) 0 %; Eosinophils % (A) 0 %; HCT 23.6 % (39.0-53.0); HGB 7.5 gm/dL (13.0-17.5); Lymphocytes # (A) 0.4 k/uL (1.0-4.8); Lymphocytes % (A) 3 %; MCH 27.9 pg (25.0-35.0); MCHC 31.7 g/dL (31.0-37.0); MCV 87.9 fL (80.0-100.0); Mean Platelet Volume 6.9; Monocytes # (A) 0.6 k/uL (0-1.0); Monocytes % (A) 4 %; Neutrophils # (A) 13.6 k/uL (1.3-7.7); Neutrophils % (A) 92 %; Platelet Count 464 k/uL (150-450); RBC 2.69 m/uL (4.30-5.90); RDW 14.7 % (11.5-15.5); WBC 14.7 k/uL (3.8-10.6)
[2019-03-11 06:18] LABS: INR 1.1 (<1.2); Partial Thromboplastin Time 77.6 sec (22.0-30.0); Prothrombin Time 11.6 sec (9.0-12.0)
[2019-03-11] MEDS ORDERED: DESMOPRESSIN ACETATE 28 MCG in SODIUM CHLORIDE 0.9% 50 ML IVPB ONE (09:00)
--- NOTE | 2019-03-11 09:27 | P.PN ---
Subjective Patient is seen in follow-up for acute kidney injury. He is currently hemodialysis dependent. He was started on prednisone on March 02 for presumed interstitial nephritis. Denies active chest pain or shortness of breath. Currently maintained on hemodialysis on a Monday schedule. Scheduled for kidney biopsy today. Patient had a permacath placed 03/08. No active complaints at this time. Currently seen while undergoing hemodialysis. Vital signs are stable. General: The patient appeared well nourished and normally developed. HEENT: Head exam is unremarkable. Neck is without jugular venous distension. LUNGS: Lungs are clear to auscultation and percussion. Breath sounds decreased. HEART: Rate and Rhythm are regular. First and second heart sounds normal. No murmurs, rubs or gallops. ABDOMEN: Abdominal exam reveals normal bowel sounds. Non-tender and non- distended. EXTREMITITES: 1+ edema. Objective - Vital Signs Vital signs: Vital Signs Temp 98.8 F 03/11/19 07:28 Pulse 62 03/11/19 07:28 Resp 18 03/11/19 07:28 BP 117/58 03/11/19 07:28 Pulse Ox 96 03/11/19 07:28 Intake & Output 03/10/19 03/11/19 03/11/19 18:59 06:59 18:59 Intake Total 1406.524 535.773 Balance 1406.524 535.773 Intake: Intake, IV Titration 306.524 225.773 Amount Heparin Sod,Pork in 0.45% 306.524 225.773 NaCl 25,000 unit In 0.45 % NaCl 1 250ml.bag @ 10. 834 UNITS/KG/HR 10 mls/hr IV .Q24H [facility] Rx#: [id number] Oral 1100 Blood Product 310 Rc Pheresis As-3 Unit 310 [id number] Other: Voiding Method Toilet Toilet # Voids 1 1 - Labs CBC & Chem 7: 03/11/19 05:55 03/10/19 06:59 Labs: Abnormal Lab Results - Last 24 Hours (Table) 03/09/19 03/10/19 03/11/19 Range/Units 03:28 14:06 05:55 WBC 14.7 H (3.8-10.6) k/uL RBC 2.69 L (4.30-5.90) m/uL Hgb 7.5 L (13.0-17.5) gm/dL Hct 23.6 L (39.0-53.0) % Plt Count 464 H (150-450) k/uL Neutrophils # 13.6 H (1.3-7.7) k/uL Lymphocytes # 0.4 L (1.0-4.8) k/uL APTT 61.4 H (22.0-30.0) sec Crossmatch See Detail 03/11/19 Range/Units 05:55 WBC (3.8-10.6) k/uL RBC (4.30-5.90) m/uL Hgb (13.0-17.5) gm/dL Hct (39.0-53.0) % Plt Count (150-450) k/uL Neutrophils # (1.3-7.7) k/uL Lymphocytes # (1.0-4.8) k/uL APTT 77.6 H (22.0-30.0) sec Crossmatch Assessment and Plan Plan: Assessment: 1. Acute kidney injury. There is concern for underlying GN, particularly microscopic polyangiitis as anti-MPO titer is high. He is also noted to be LYLA positive and indeterminate double-stranded DNA. Urine eosinophils negative. He has sub-nephrotic range proteinuria. He was started on prednisone on March 02 for presumed interstitial nephritis. Currently hemodialysis dependent. 2. Pleural effusions status post left-sided thoracentesis with 1.3 L drained. 3. A. fib maintained on oral amiodarone and heparin drip. 4. Hyperphosphatemia secondary to acute kidney injury. Improved with dialysis. 5. Chronic kidney disease stage III with baseline creatinine in the range of 1.3-1.5. 6. Hyponatremia secondary to acute kidney injury. 7. Anemia. No active bleeding noted. Rule out iron deficiency. Maintained on Aranesp. Status post 1 unit of blood transfusion on February 08. Plan: Maintain prednisone 30 mg twice daily. Maintain PPI. Kidney biopsy scheduled for today. I will give him a dose of IV DDAVP one hour prior to kidney biopsy. Maintain Lasix 80 mg orally twice daily. Continue to monitor renal function and urine output. Maintain hemodialysis on Monday schedule.
[2019-03-11 09:57] LABS: Iron Saturation 34.21 (15.00-50.00)
[2019-03-11] MEDS: PANTOPRAZOLE 40 MG TABLET PO SCH (10:38)
[2019-03-11] MEDS: predniSONE 10 MG TAB PO SCH ×2 (10:38→21:18)
[2019-03-11] MEDS: SENNOSIDES-DOCUSATE SODIUM 1 EACH TAB PO SCH (10:38)
[2019-03-11] MEDS: FUROSEMIDE 80 MG TAB PO SCH ×2 (10:38→16:19)
[2019-03-11] MEDS: AMIODARONE 200 MG TAB PO SCH (11:39)
[2019-03-11] MEDS: DORZOLAMIDE HCL 2% DROPS 10 ML BTL BOTH EYES SCH ×2 (11:40→21:18)
[2019-03-11] MEDS: LABETALOL 100 MG TAB PO SCH ×2 (11:40→21:18)
--- NOTE | 2019-03-11 13:31 | P.PN ---
Subjective This is a pleasant 73-year-old male past medical history significant for hypertension and dyslipidemia. He initially presented to the hospital with shortness of breath and was found to have a pleural effusion, acute kidney injury and subsequently went into atrial fibrillation with RVR. He is currently maintained on IV heparin and amiodarone awaiting renal biopsy. He is seen and examined resting comfortably in bed in no acute distress undergoing dialysis. He denies chest pain, shortness of breath, palpitations or dizziness. Blood pressure 117/58 heart rate 62 afebrile and maintaining oxygen saturation on room air. Laboratory data reviewed, WBC 14.7, hgb 7.5, plt 464. GENERAL: Well-appearing, well-nourished and in no acute distress. NECK: Supple without JVD or thyromegaly. LUNGS: Breath sounds clear to auscultation bilaterally. Respiration equal and unlabored. No wheezes, rales or rhonchi. HEART: Regular rate and rhythm with systolic ejection murmur at the left sternal border, no rubs or gallops. S1 and S2 heard. EXTREMITIES: Normal range of motion, no edema. No clubbing or cyanosis. Peripheral pulses intact. ASSESSMENT Paroxysmal atrial fibrillation, currently maintaining sinus mechanism. Renal biopsy planned for Monday, heparin infusion ongoing Acute bilateral pleural effusion s/p thoracentesis Acute on chronic renal failure Urinary tract infection Aortic stenosis, mean 15 mmHg Hypertension Dyslipidemia Anemia, ongoing and stable since admission. No signs of acute bleeding. PLAN Hold heparin infusion for renal biopsy, resume when complete and initiate on coumadin tonight at 5 mg to start tonight if ok with interventional radiology. Repeat coagulation studies in the morning and adjust Coumadin as needed. Decrease amiodarone to 200 mg daily. Follow up with Dr. Marquez upon discharge. Nurse Practitioner note has been reviewed, I agree with a documented findings and plan of care. Patient was seen and examined. Objective - Vital Signs Vital signs: Vital Signs Temp 98.8 F 03/11/19 07:28 Pulse 62 03/11/19 07:28 Resp 18 03/11/19 07:28 BP 117/58 03/11/19 07:28 Pulse Ox 96 03/11/19 07:28 Intake & Output 03/10/19 03/11/19 03/11/19 18:59 06:59 18:59 Intake Total 1406.524 535.773 Balance 1406.524 535.773 Intake: Intake, IV Titration 306.524 225.773 Amount Heparin Sod,Pork in 0.45% 306.524 225.773 NaCl 25,000 unit In 0.45 % NaCl 1 250ml.bag @ 10. 834 UNITS/KG/HR 10 mls/hr IV .Q24H [facility] Rx#: [id number] Oral 1100 Blood Product 310 Rc Pheresis As-3 Unit 310 [id number] Other: Voiding Method Toilet Toilet # Voids 1 1 - Labs CBC & Chem 7: 03/11/19 05:55 03/10/19 06:59 Labs: Abnormal Lab Results - Last 24 Hours (Table) 03/09/19 03/10/19 03/10/19 Range/Units 03:28 05:59 14:06 WBC (3.8-10.6) k/uL RBC (4.30-5.90) m/uL Hgb (13.0-17.5) gm/dL Hct (39.0-53.0) % Plt Count (150-450) k/uL Neutrophils # (1.3-7.7) k/uL Lymphocytes # (1.0-4.8) k/uL APTT 61.4 H (22.0-30.0) sec TIBC 190 L (228-460) ug/dL Ferritin 1151.5 H (22.0-322.0) ng/mL Crossmatch See Detail 03/11/19 03/11/19 Range/Units 05:55 05:55 WBC 14.7 H (3.8-10.6) k/uL RBC 2.69 L (4.30-5.90) m/uL Hgb 7.5 L (13.0-17.5) gm/dL Hct 23.6 L (39.0-53.0) % Plt Count 464 H (150-450) k/uL Neutrophils # 13.6 H (1.3-7.7) k/uL Lymphocytes # 0.4 L (1.0-4.8) k/uL APTT 77.6 H (22.0-30.0) sec TIBC (228-460) ug/dL Ferritin (22.0-322.0) ng/mL Crossmatch
--- NOTE | 2019-03-11 13:57 | P.PCN ---
Date of Procedure: 03/11/19 Preoperative Diagnosis: renal failure Procedure(s) Performed: ct right kidney biopsy Anesthesia: local Estimated Blood Loss (ml): 5 Pathology: other (specimen to cytology) Condition: stable Disposition: floor Indications for Procedure: jordan Operative Findings: 3 x 18 core lower pole right renal cortex
[2019-03-11] MEDS: NIFEdipine XL 90 MG TAB.ER.24 PO SCH (15:21)
--- NOTE | 2019-03-11 16:39 | CT ---
DATE OF EXAM: 03/11/2019 COMPARISON: NONE CT DLP: 762 mGycm HISTORY: Renal failure PROCEDURE: Maximal barrier technique was utilized. After informed consent, the skin overlying a suit able path to the right kidney was localized using CT guidance, the skin was prepped and draped. Lido bill was used for local anesthesia. A skin willem made with a scalpel. Using CT guidance, a 17-gauge needle was advanced into in position at inferior cortex of the left kidney where coaxial placement o f an 18-gauge needle was used and core biopsy obtained. Three passes made in total. Hemostasis was achieved. There was no immediate complication and patient remained in stable condition. Specimen marinelli bmitted to Pathology. IMPRESSION: Status post CT guided core biopsy of right renal cortex, pathology pending. This procedu re performed by the undersigned.
--- NOTE | 2019-03-11 17:28 | IR ---
Fluoroscopy HISTORY: Dialysis catheter placement 1.7 minutes fluoroscopy time supplied to the referring clinician. 179 intraoperative C-arm images do cument the procedure. See dictated report from vascular surgery.
[2019-03-11] MEDS ORDERED: WARFARIN 5 MG TAB PO ONE (18:00)
[2019-03-11] MEDS: ATORVASTATIN 40 MG TAB PO SCH (21:18)
[2019-03-11] MEDS: LATANOPROST 0.005% OPHTH DROPS 2.5 ML BTL BOTH EYES SCH (21:18)
[2019-03-12 08:31] LABS: INR 1.1 (<1.2); Prothrombin Time 11.4 sec (9.0-12.0)
[2019-03-12] MEDS ORDERED: AMIODARONE 200 MG TAB PO SCH (09:00)
[2019-03-12] MEDS: LABETALOL 100 MG TAB PO SCH ×2 (09:29→20:05)
[2019-03-12] MEDS: predniSONE 10 MG TAB PO SCH ×2 (09:29→20:05)
[2019-03-12] MEDS: FUROSEMIDE 80 MG TAB PO SCH ×2 (09:29→16:25)
[2019-03-12] MEDS: DORZOLAMIDE HCL 2% DROPS 10 ML BTL BOTH EYES SCH (09:30)
[2019-03-12] MEDS: SENNOSIDES-DOCUSATE SODIUM 1 EACH TAB PO SCH (09:36)
[2019-03-12] MEDS: PANTOPRAZOLE 40 MG TABLET PO SCH (09:36)
[2019-03-12] MEDS: NIFEdipine XL 90 MG TAB.ER.24 PO SCH (12:03)
--- NOTE | 2019-03-12 12:33 | P.PN ---
Subjective Patient is seen in follow-up for acute kidney injury. He is currently hemodialysis dependent. He was started on prednisone on March 02 for presumed interstitial nephritis. Denies active chest pain or shortness of breath. Currently maintained on hemodialysis on a Monday schedule. Status post kidney biopsy in March 11. Results pending.. Patient had a permacath placed 03/08. No active complaints at this time. Vital signs are stable. General: The patient appeared well nourished and normally developed. HEENT: Head exam is unremarkable. Neck is without jugular venous distension. LUNGS: Lungs are clear to auscultation and percussion. Breath sounds decreased. HEART: Rate and Rhythm are regular. First and second heart sounds normal. No murmurs, rubs or gallops. ABDOMEN: Abdominal exam reveals normal bowel sounds. Non-tender and non- distended. EXTREMITITES: 1+ edema. Objective - Vital Signs Vital signs: Vital Signs Temp 98.0 F 03/12/19 07:20 Pulse 71 03/12/19 07:20 Resp 18 03/12/19 07:20 BP 153/72 03/12/19 12:03 Pulse Ox 97 03/12/19 07:20 Intake & Output 03/11/19 03/12/19 03/12/19 18:59 06:59 18:59 Intake Total 296 250 240 Output Total 1999 50 Balance -1704 250 190 Weight 92 kg Intake: Oral 296 250 240 Output: Urine 50 Hemodialysis 2000 Other: Voiding Method Toilet Toilet # Voids 1 1 # Bowel Movements 1 - Labs CBC & Chem 7: 03/11/19 05:55 03/10/19 06:59 Labs: Microbiology - Last 24 Hours (Table) 03/03/19 09:38 Acid Fast Bacilli Smear - Final Thoracic Fluid Acid Fast Bacilli Culture - Preliminary 03/03/19 09:38 Fungal Culture - Preliminary Thoracic Fluid Assessment and Plan Plan: Assessment: 1. Acute kidney injury. There is concern for underlying GN, particularly microscopic polyangiitis as anti-MPO titer is high. He is also noted to be LYLA positive and indeterminate double-stranded DNA. Urine eosinophils negative. He has sub-nephrotic range proteinuria. He was started on prednisone on March 02 for presumed interstitial nephritis. Currently hemodialysis dependent. 2. Pleural effusions status post left-sided thoracentesis with 1.3 L drained. 3. A. fib maintained on oral amiodarone and coumadin. 4. Hyperphosphatemia secondary to acute kidney injury. Improved with dialysis. 5. Chronic kidney disease stage III with baseline creatinine in the range of 1.3-1.5. 6. Hyponatremia secondary to acute kidney injury. 7. Anemia. No active bleeding noted. Iron replete. Maintained on Aranesp. Status post 1 unit of blood transfusion on February 08. Plan: Maintain prednisone 30 mg twice daily. Maintain PPI. Await kidney biopsy results. Maintain Lasix 80 mg orally twice daily. Continue to monitor renal function and urine output. Maintain hemodialysis on Monday schedule. If kidney biopsy shows acute necrotizing and crescentic glomerulonephritis, patient will require plasmapheresis.
[2019-03-12 14:59] VITALS: RESP 16
--- NOTE | 2019-03-12 17:14 | PN ---
PROGRESS NOTE DATE OF SERVICE: 03/12/2019 CHIEF COMPLAINT: Renal failure. HISTORY OF PRESENT ILLNESS: This gentleman's condition remains about the same. He is still not making significant amounts urine. We await the renal biopsy. PHYSICAL EXAMINATION: His chest is clear. The cardiac exam is normal. Abdomen is soft and nontender. Extremities are normal. IMPRESSION: 1. Acute anuric renal failure. 2. Hypertension. PLAN: Continue to follow with Nephrology. Biopsy is still pending. MMODL / IJN: [id number] /
[2019-03-12] MEDS ORDERED: WARFARIN 5 MG TAB PO ONE (18:00)
[2019-03-12 19:57] VITALS: BP 126/63; PULSE 69; TEMP 97.5
[2019-03-12] MEDS: ATORVASTATIN 40 MG TAB PO SCH (20:05)
--- NOTE | 2019-03-19 23:29 | DS ---
DISCHARGE SUMMARY CHIEF COMPLAINT: Renal failure. HISTORY OF PRESENT ILLNESS AND PHYSICAL EXAM: Details of this man's history and physical can be found in the initial workup. LABORATORY STUDIES: While he was the hospital, he had laboratory studies, details of which can be found in the laboratory section of his chart. COURSE IN HOSPITAL: After admission, he was placed on bedrest and started on intravenous fluids and was found to be in acute renal failure. He was referred to Nephrology. He never did regain significant urinary output. 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 He was discharged on the . FINAL DIAGNOSES: 1. Acute renal failure. 2. Chronic renal failure. 3. History of hypertension. 4. History of alcoholism. OPERATIONS: None. CONSULTATIONS: Nephrology. RUDY / ROBERT: [id number] /
== END 2019-03-12 20:06 | disposition short-term general hospital (02) | DRG 674 ==
LOC: EC 01:27 → UNDOADMIN 03:49 → 3NMEDONC 03:49 → 3SCARD 03:49 → 2SICU 03-02 17:15 → 4SSUR 03-06 13:00
PROVIDERS: ADMIT Family Medicine; ATTEND Family Medicine
PROC: 5A1D70Z Performance of Urinary Filtration, Intermittent, Less than 6 Hours Per Day (ICD-10-PCS; 2019-03-02)
PROC: 06HM33Z Insertion of Infusion Device into Right Femoral Vein, Percutaneous Approach (ICD-10-PCS; 2019-03-02 07:35)
PROC: 0W9B3ZZ Drainage of Left Pleural Cavity, Percutaneous Approach (ICD-10-PCS; 2019-03-03)
PROC: 06PYX3Z Removal of Infusion Device from Lower Vein, External Approach (ICD-10-PCS; 2019-03-08)
PROC: 02HV33Z Insertion of Infusion Device into Superior Vena Cava, Percutaneous Approach (ICD-10-PCS; 2019-03-08)
PROC: 0JH63XZ Insertion of Tunneled Vascular Access Device into Chest Subcutaneous Tissue and Fascia, Percutaneous Approach (ICD-10-PCS; 2019-03-08)
PROC: 30233N1 Transfusion of Nonautologous Red Blood Cells into Peripheral Vein, Percutaneous Approach (ICD-10-PCS; principal; 2019-03-10)
PROC: 0TB03ZX Excision of Right Kidney, Percutaneous Approach, Diagnostic (ICD-10-PCS; 2019-03-11)
DX: N17.9 Acute kidney failure, unspecified (principal); E87.1 Hypo-osmolality and hyponatremia; E87.4 Mixed disorder of acid-base balance; I31.3 Pericardial effusion (noninflammatory); I47.2 Ventricular tachycardia; J90 Pleural effusion, not elsewhere classified; J98.11 Atelectasis; D63.1 Anemia in chronic kidney disease; E78.5 Hyperlipidemia, unspecified; E83.39 Other disorders of phosphorus metabolism; E86.1 Hypovolemia; E87.70 Fluid overload, unspecified; H40.9 Unspecified glaucoma; I12.9 Hypertensive chronic kidney disease with stage 1 through stage 4 chronic kidney disease, or unspecified chronic kidney disease; N18.3 Chronic kidney disease, stage 3 (moderate); I35.0 Nonrheumatic aortic (valve) stenosis; I48.0 Paroxysmal atrial fibrillation; K12.1 Other forms of stomatitis; K59.00 Constipation, unspecified; N12 Tubulo-interstitial nephritis, not specified as acute or chronic; N40.0 Benign prostatic hyperplasia without lower urinary tract symptoms; R09.02 Hypoxemia; R76.8 Other specified abnormal immunological findings in serum; Z79.01 Long term (current) use of anticoagulants; Z79.52 Long term (current) use of systemic steroids; Z79.82 Long term (current) use of aspirin; Z79.899 Other long term (current) drug therapy; Z85.038 Personal history of other malignant neoplasm of large intestine; Z85.46 Personal history of malignant neoplasm of prostate; Z87.891 Personal history of nicotine dependence
CPT/HCPCS: 36410; 36415; 36556; 36571; 71045; 71046; 71250; 76604; 76770; 76937; 77001; 77012; 80048; 80053; 81001; 82550; 82570; 82728; 82945; 83516; 83540; 83550; 83605; 83615; 83735; 83880; 84100; 84156; 84157; 84484; 85025; 85610; 85730; 86038; 86039; 86160; 86162; 86225; 86255; 86334; 86335; 86705; 86706; 86850; 86870; 86880; 86900; 86901; 86902; 86920; 87040; 87070; 87086; 87102; 87116; 87205; 87206; 87340; 88108; 88305; 88313; 88346; 88348; 88350; 89050; 90935; 93005; 93306; 94640; 94760; 96374; 99285

== ENCOUNTER → 2019-04-04 | Outpatient (CLI) | payer MEDICARE ==
[~2019-04-04] MED LIST changes: -HEPARIN SODIUM,PORCINE 5,000 UNIT/ML 1 ML VIAL SQ ONE; +ONDANSETRON 4 MG/2 ML VIAL IVP ONE; -Pre Op ABX Message 1 EACH MISC MISCELLANE ONE; +SODIUM CHLORIDE 0.9% 500 ML 500 ML in EMPTY BAG 1 BAG IV PRN; +diphenhydrAMINE 50 MG/ML 1 ML VIAL IVP ONE; +riTUXimab 800 MG in SODIUM CHLORIDE 0.9% 500 ML 500 ML IV NR
[2019-04-04 10:15] VITALS: TEMP 97.6
[2019-04-04 12:54] VITALS: BP 146/73; PULSE 67; RESP 18
== END ==
LOC: PROCWHC3 09:06
PROVIDERS: ATTEND Internal Medicine Nephrology
DX: M31.30 Wegener's granulomatosis without renal involvement (principal)
CPT/HCPCS: 96375; 96413; 96415; J1200; J2405; J9312

== ENCOUNTER → 2019-08-05 | Outpatient (CLI) | payer MEDICARE ==
--- NOTE | 2019-08-05 14:18 | US ---
EXAMINATION TYPE: US kidneys/renal and bladder DATE OF EXAM: 08/05/2019 COMPARISON: 03/01/2019 CLINICAL HISTORY: R31.1 Micro hematuria. Hematuria, history of renal cysts EXAM MEASUREMENTS: Right Kidney: 10.2 x 4.0 x 5.7 cm Left Kidney: 9.8 x 5.2 x 5.1 cm Right Kidney: cystic area upper pole = 2.1 x 2.3 x 2.4cm, this previously measured 2.8 cm on the prio r exam of 03/01/2019 Left Kidney: cystic areas noted, largest = 4.7 x 3.0 x 4.5cm at lower pole, this previously measured 3.8 cm on the prior of 03/01/2019. Bladder: not fully distended Bilateral Jets seen: no There is no evidence for hydronephrosis at this point in time. No nephrolithiasis is seen. The uri nary bladder is anechoic. Bilateral ureteral jets are not seen. IMPRESSION: Bilateral renal cysts with interval growth of the left renal cyst now measuring 4.7 cm an d previously measuring 3.5 cm.
== END | disposition home or self-care (01) ==
LOC: RADUSWWP 12:57
PROVIDERS: ATTEND Urology
DX: N28.1 Cyst of kidney, acquired (principal); Z88.0 Allergy status to penicillin; Z88.8 Allergy status to other drugs, medicaments and biological substances
CPT/HCPCS: 76770

== ENCOUNTER → 2019-09-16 | Outpatient (CLI) | payer MEDICARE ==
[2019-09-17 14:43] LABS: ANA Pattern See Footnote
== END | disposition home or self-care (01) ==
LOC: LABWHC1 10:29
PROVIDERS: ATTEND Family Medicine
DX: M79.10 Myalgia, unspecified site (principal)
CPT/HCPCS: 36415; 85652; 86038; 86039

== ENCOUNTER → 2023-02-15 | Outpatient (CLI) | payer MEDICARE ==
[2023-02-15 15:05] LABS: Appearance,Urine Clear (Clear); Bilirubin,Urine Negative (Negative); Blood,Urine Negative (Negative); Color,Urine Yellow; Glucose,Urine (UA) Negative (Negative); Ketones,Urine Negative (Negative); Leukocyte Esterase,Urine Negative (Negative); Nitrite,Urine Negative (Negative); PH, Urine 8.5 (5.0-8.0); Protein,Urine Negative (Negative); Specific Gravity,Urine 1.013 (1.001-1.035); Urobilinogen,Urine <2.0 mg/dL (<2.0)
== END | disposition home or self-care (01) ==
LOC: LABWHC1 13:52
PROVIDERS: ATTEND Radiology Radiation Oncology
DX: C61 Malignant neoplasm of prostate (principal)
CPT/HCPCS: 81003

== ENCOUNTER → 2023-02-23 | Outpatient (CLI) | payer MEDICARE ==
--- NOTE | 2023-02-23 13:19 | US ---
EXAMINATION TYPE: US scrotum with doppler. Grayscale and color Doppler Duplex imaging performed of chuy swain scrotum. DATE OF EXAM: 02/23/2023 COMPARISON: CT abdomen pelvis 11/09/2017 CLINICAL INDICATION: Male, 77 years old with history of N49.2 INFLAMMATORY DISORDERS OF SCROTUM; Hx p rostate cancer. EXAM MEASUREMENTS: TESTICLES: Right Testicle: 3.3 x 3.1 x 2.0 cm. Anechoic area seen within lateral right testicle: 0.4 x 0.3 x 0.3 cm. Left Testicle: 4.2 x 2.4 x 1.9 cm. Anechoic area seen within mid left testicle: 0.4 x 0.4 x 0.5 c m. EPIDIDYMIS HEAD: Right Epididymis: Not seen Left Epididymis: Not seen Doppler performed to assess for testicular vascularity; bilateral color flow and waveforms are seen. Presence of hydroceles: Two fluid collections seen on the right. -Complex fluid seen superior to the right testicle: 6.1 x 4.7 x 3.3 cm. -Anechoic fluid collection seen lateral to the right testicle: 4.6 x 1.5 x 1.7 cm. -Left hydrocele: 2.6 x 1.8 x 0.9 cm. Presence of varicoceles: Not seen. Complex area seen lateral to left testicle: 1.4 x 1.1 x 0.8 cm, question origin. No internal color fl ow identified. IMPRESSION: Falcon I 1. No evidence for testicular torsion. 2. Bilateral simple-appearing testicular cysts. 3. Bilateral hydroceles with a fluid collection superior to the right testicle measuring up to 6.1 cm with internal debris. This may represent a hernia with ascites versus other. Consider further evalua tion with CT pelvis. 4. Complex area seen lateral left testicle without internal color flow. Origin is indeterminate. This may represent a hernia containing bowel versus other etiologies. This can be further evaluated with CT pelvis as recommended above.
== END | disposition home or self-care (01) ==
LOC: RADUSWWP 12:21
PROVIDERS: ATTEND Radiology Radiation Oncology
DX: C61 Malignant neoplasm of prostate (principal); N49.2 Inflammatory disorders of scrotum; N44.2 Benign cyst of testis; N43.3 Hydrocele, unspecified
CPT/HCPCS: 76870; 93975

== ENCOUNTER → 2023-03-02 | Outpatient (CLI) | payer MEDICARE ==
[2023-03-02 10:10] LABS: African American GFR (CKD) 24 (>60 ml/min/1.73 sqM); Blood Urea Nitrogen 28 mg/dL (9-20); Non-African American GFR(CKD) 21 (>60 ml/min/1.73 sqM)
--- NOTE | 2023-03-09 09:51 | CT ---
EXAMINATION TYPE: CT pelvis w con CT DLP: 780.20 mGycm, Automated exposure control for dose reduction was used. DATE OF EXAM: 03/07/2023 9:04 AM COMPARISON: CT abdomen pelvis 11/09/2017 CLINICAL INDICATION:Male, 77 years old with history of C61 MALIGNANT NEOPLASM OF PROSTATE; Malignant neoplasm of prostate TECHNIQUE: Standard CT of the pelvis following the administration of 80 cc of Isovue 300 IV contras t material and oral contrast. Coronal and sagittal reformats were performed. FINDINGS: LIVER: The visualized portion of the liver demonstrates a subcentimeter hypodensity which is too smal l characterize in the inferior right hepatic lobe. PANCREAS: Visualized portion is unremarkable. KIDNEYS AND URETERS: Partial visualization of both kidneys. Bilateral renal cysts identified. No hydr onephrosis. BLADDER: Under distended, limiting evaluation. REPRODUCTIVE: Changes from prostatectomy. No definitive soft tissue nodularity to suggest local recur rence within the prostatectomy bed. Right sided hydrocele. BOWEL: No focal bowel wall thickening or surrounding inflammatory changes. Enteric contrast reaches t he hepatic flexure. No evidence of bowel obstruction. PERITONEUM: No evidence of pneumoperitoneum or free fluid. VASCULATURE: Mild atherosclerotic calcifications are present throughout the abdominal aorta and its b ranches. MUSCULOSKELETAL: No acute osseous abnormalities. Moderate disc degeneration changes are present throu ghout the thoracolumbar spine. No aggressive osseous lesion. Prominent Schmorl's node involving the i nferior endplate of the L3 vertebral body. Left anterior thigh small intramuscular lipoma. LYMPH NODES: No pathologically enlarged lymph nodes identified. SOFT TISSUE/ABDOMINAL WALL: Small fat filled umbilical hernia. No inguinal hernia identified. IMPRESSION: 1. Postsurgical changes from prostatectomy with no CT evidence for recurrent malignancy or metastasis . No visualized adenopathy. 2. Right hydrocele.
== END | disposition home or self-care (01) ==
LOC: RADCTMAIN 09:27
PROVIDERS: ATTEND Radiology Radiation Oncology
DX: C61 Malignant neoplasm of prostate (principal); N43.3 Hydrocele, unspecified; Z90.79 Acquired absence of other genital organ(s)
CPT/HCPCS: 36415; 72193; 72194; 82565; 84520

== ENCOUNTER → 2023-05-30 | Outpatient (CLI) | payer MEDICARE | END | disposition home or self-care (01) | LOC: LABWHC1 14:04 | PROVIDERS: ATTEND Radiology Radiation Oncology | DX: C61 Malignant neoplasm of prostate (principal) | CPT/HCPCS: 36415; 84153 ==

== ENCOUNTER → 2024-06-13 | Outpatient (CLI) | payer MEDICARE | END | disposition home or self-care (01) | LOC: LABWHC1 12:06 | PROVIDERS: ATTEND Radiology Radiation Oncology | DX: C61 Malignant neoplasm of prostate (principal) | CPT/HCPCS: 36415; 84153 ==

== ENCOUNTER → 2024-12-10 | Outpatient (CLI) | payer MEDICARE | END | disposition home or self-care (01) | LOC: LABWHC1 08:12 | PROVIDERS: ATTEND Radiology Radiation Oncology | DX: Z08 Encounter for follow-up examination after completed treatment for malignant neoplasm (principal); C61 Malignant neoplasm of prostate | CPT/HCPCS: 36415; 84153 ==

== ENCOUNTER → 2025-03-05 | Outpatient (CLI) | payer OTHER | END | disposition home or self-care (01) | LOC: LABWHC1 10:16 | PROVIDERS: ATTEND Radiology Radiation Oncology | DX: Z08 Encounter for follow-up examination after completed treatment for malignant neoplasm (principal); C61 Malignant neoplasm of prostate | CPT/HCPCS: 36415; 84153 ==